=== PATIENT | female | born 1970 | race Two or more races ===

== ENCOUNTER 2020-07-04 09:08 | Outpatient (REF) | payer OTHER, SELFPAY ==
[2020-07-04 10:43] LABS: Alanine Aminotransferase 23 U/L (0-31); Albumin Level 3.8 g/dL (3.5-5.0); Alkaline Phosphatase 119 U/L (39-117); Anion Gap 12 (12-20); Aspartate Amino Transferase 17 U/L (5-31); Bilirubin Total 0.3 mg/dL (0.0-1.0); Blood Urea Nitrogen 11 mg/dL (9-16); Calcium 8.2 mg/dL (8.4-10.2); Carbon Dioxide 28 mmol/L (22-29); Chloride 104 mmol/L (96-108); Cholesterol 217 mg/dL; Estimated Glomerular Filt Rate > 60; Glucose Fasting 98 mg/dL (60-99); HDL Cholesterol 41 mg/dL; LDL Cholesterol Calculated 155 mg/dl; Potassium 4.7 mmol/l (3.3-5.1); Sodium 139 mmol/L (135-145); Total Protein 6.6 g/dL (6.5-8.0); Triglycerides 108 mg/dL
== END 2020-07-04 09:09 | disposition home or self-care (01) ==
LOC: HO.LAB 09:08
PROVIDERS: PCP Internal Medicine; Visit Provider Internal Medicine
DX: E78.00 Pure hypercholesterolemia, unspecified (principal)
CPT/HCPCS: 80053; 80061

== ENCOUNTER 2020-07-21 08:33 | Outpatient (REF) | payer OTHER, SELFPAY ==
--- NOTE | 2020-07-21 08:38 | MM_ITS ---
EXAMINATION: MM SCREENING DIGITAL BREAST TOMOSYNTHESIS, BILATERAL CLINICAL INFORMATION: Screening. Asymptomatic. The lifetime risk of breast cancer based on the Tyrer-Cuzick Model is 6%. COMPARISON: Mammography: 04/08/2019, 03/30/2018 TECHNIQUE: Digital breast tomosynthesis is performed in both the craniocaudal and mediolateral oblique views along with computer-aided detection (CAD). Synthesized 2D images are generated from the tomosynthesis. Additional left MLO view is provided. FINDINGS: The breasts are almost entirely fatty (ACR BI-RADS breast composition Category a). There are no significant masses, abnormal calcifications, or other abnormalities. Background stromal and fibroglandular densities are stable. No significant changes. MM/MM tomosynthesis screening BI IMPRESSION: No mammographic evidence of malignancy. ASSESSMENT: BI-RADS 1: Negative RECOMMENDATION: Routine annual mammography screening. This patient's information was entered into a reminder system with a target due date for their next mammogram.
== END 2020-07-21 08:34 | disposition home or self-care (01) ==
LOC: HO.MAMMO 08:33
PROVIDERS: PCP Internal Medicine; Visit Provider Internal Medicine
DX: Z12.31 Encounter for screening mammogram for malignant neoplasm of breast (principal)
CPT/HCPCS: 77063; 77067

== ENCOUNTER 2021-02-22 15:13 | Outpatient (REF) | payer OTHER, SELFPAY ==
--- NOTE | ~2021-02-22 | XR_ITS ---
EXAMINATION: XR KNEE, RIGHT CLINICAL INFORMATION: Pain right knee COMPARISON: Radiographs right knee 04/13/2019 TECHNIQUE: Four views of the right knee. FINDINGS: There is no fracture, dislocation, destructive process, or definite suprapatellar effusion. There are again degenerative changes right patellofemoral joint with corticated ossicle adjacent to posterior superior aspect patella. There is spurring from the femoral condyles and tibial plateau. No erosive change or definite chondrocalcinosis. No significant narrowing medial lateral knee joint compartment. XR/XR knee RT 4V IMPRESSION: 1. Degenerative changes greatest patellofemoral joint but also spurring femoral condyles and tibial plateau. 2. No erosive change or definite chondrocalcinosis. No effusion.
== END 2021-02-22 15:14 | disposition home or self-care (01) ==
LOC: HO.HMGCX 15:13
PROVIDERS: PCP Internal Medicine; Visit Provider Hospitalist
DX: M25.561 Pain in right knee (principal)
CPT/HCPCS: 73564

== ENCOUNTER 2021-02-26 09:15 | Outpatient (REF) | payer OTHER, SELFPAY ==
[2021-02-26 17:31] LABS: CT PCR NOT DETECTED (Not Detect.); NG PCR NOT DETECTED (Not Detect.)
[2021-03-01 01:26] LABS: HPV mRNA E6/E7 rflx Not Detected (Not Detected)
== END 2021-02-26 09:16 | disposition home or self-care (01) ==
LOC: HO.LAB 09:15
PROVIDERS: Visit Provider Advanced Practice Midwife
DX: Z01.419 Encounter for gynecological examination (general) (routine) without abnormal findings (principal); Z11.51 Encounter for screening for human papillomavirus (HPV); Z11.3 Encounter for screening for infections with a predominantly sexual mode of transmission; R32 Unspecified urinary incontinence; Z20.2 Contact with and (suspected) exposure to infections with a predominantly sexual mode of transmission
CPT/HCPCS: 87491; 87591; 87624; 88142

== ENCOUNTER → 2021-04-26 09:32 | Outpatient (REF) | payer OTHER, SELFPAY ==
--- NOTE | 2021-04-26 09:50 | ECG_ITS ---
Test Reason : HYPERKALEMIC Blood Pressure : / mmHG Vent. Rate : 061 BPM Atrial Rate : 061 BPM P-R Int : 128 ms QRS Dur : 070 ms QT Int : 386 ms P-R-T Axes : 054 042 030 degrees QTc Int : 388 ms Normal sinus rhythm with sinus arrhythmia Normal ECG No previous ECGs available Referred By: Radha Poe Electronically Signed By:NIKKI DIAZ
[2021-04-26 11:01] LABS: Alanine Aminotransferase 18 U/L (0-31); Albumin Level 3.7 g/dL (3.5-5.0); Alkaline Phosphatase 104 U/L (39-117); Anion Gap 13 (12-20); Aspartate Amino Transferase 13 U/L (5-31); Bilirubin Total 0.2 mg/dL (0.0-1.0); Blood Urea Nitrogen 20 mg/dL (9-16); Calcium 8.5 mg/dL (8.4-10.2); Carbon Dioxide 26 mmol/L (22-29); Chloride 106 mmol/L (96-108); Estimated Glomerular Filt Rate > 60; Glucose Random 98 mg/dL (60-115); Potassium 4.6 mmol/L (3.3-5.1); Sodium 140 mmol/L (135-145); Total Protein 6.3 g/dL (6.5-8.0)
== END ==
LOC: HO.CARD 09:32
PROVIDERS: PCP Internal Medicine; Visit Provider Internal Medicine
DX: E87.5 Hyperkalemia (principal)
CPT/HCPCS: 36415; 80053; 93005

== ENCOUNTER 2022-03-11 11:41 | Outpatient (REF) | payer OTHER, SELFPAY ==
--- NOTE | ~2022-03-11 | XR_ITS ---
EXAMINATION: XR ABDOMEN KUB CLINICAL INDICATION: N20.0 - Calculus of kidney COMPARISON: Lumbar radiographs 04/13/2019, KUB 03/12/2018, ultrasound renal 03/24/2018 TECHNIQUE: AP x2 views of the abdomen. FINDINGS: There are no visible urinary tract calculi on plain film. Calculus overlying lower pole left renal fossa on lumbar radiograph 2019 is not demonstrated. The lung bases are clear. Bowel gas unremarkable. No acute bony abnormality. XR/XR KUB IMPRESSION: No visible urinary tract calculi on plain film.
[2022-03-11 12:37] LABS: Alanine Aminotransferase 24 U/L (0-31); Albumin Level 3.9 g/dL (3.5-5.0); Alkaline Phosphatase 117 U/L (39-117); Anion Gap 10 (12-20); Aspartate Amino Transferase 17 U/L (5-31); Bilirubin Total 0.4 mg/dL (0.0-1.0); Blood Urea Nitrogen 15 mg/dL (9-16); Calcium 8.7 mg/dL (8.4-10.2); Carbon Dioxide 28 mmol/L (22-29); Chloride 106 mmol/L (96-108); Cholesterol 214 mg/dL; Estimated Glomerular Filt Rate 59; Glucose Fasting 114 mg/dL (60-99); HDL Cholesterol 38 mg/dL; LDL Cholesterol Calculated 151 mg/dl; Potassium 4.9 mmol/L (3.3-5.1); Sodium 139 mmol/L (135-145); Total Protein 6.5 g/dL (6.5-8.0); Triglycerides 129 mg/dL
== END 2022-03-11 11:42 | disposition home or self-care (01) ==
LOC: HO.XRAY 11:41
PROVIDERS: PCP Internal Medicine; Visit Provider Internal Medicine
DX: N20.0 Calculus of kidney (principal); E78.00 Pure hypercholesterolemia, unspecified; E78.5 Hyperlipidemia, unspecified
CPT/HCPCS: 36415; 74018; 80053; 80061

== ENCOUNTER 2022-03-11 12:23 | Outpatient (REF) | payer OTHER, SELFPAY ==
[2022-03-11 12:45] LABS: COVID-19 Test Positive (Negative); IDNOW Serial# 08D9AD1C
== END 2022-03-11 12:24 | disposition home or self-care (01) ==
LOC: HO.LAB 12:23
PROVIDERS: Visit Provider Internal Medicine
DX: Z20.822 Contact with and (suspected) exposure to COVID-19 (principal)
CPT/HCPCS: 87635; C9803

== ENCOUNTER 2022-04-01 17:22 | Outpatient (REF) | payer OTHER, SELFPAY | END 2022-04-01 17:23 | disposition home or self-care (01) | LOC: HO.LNP 17:22 | PROVIDERS: Visit Provider Nurse Practitioner Family | DX: R10.9 Unspecified abdominal pain (principal) | CPT/HCPCS: 87086 ==

== ENCOUNTER 2022-04-07 10:00 | Outpatient (REF) | payer OTHER, SELFPAY ==
--- NOTE | ~2022-04-07 | XR_ITS ---
EXAMINATION: XR KNEE, LEFT CLINICAL INFORMATION: Pain. COMPARISON: Radiographs dated 04/13/2019. TECHNIQUE: AP, lateral, tunnel, and sunrise views of the left knee. FINDINGS: Bony alignment and mineralization are normal. The lateral and medial joint space compartments are well-maintained and show peripheral osteophyte formation. There is moderate narrowing of the patellofemoral compartment, particularly laterally. There is peripheral osteophyte formation of the superior and lateral articular surfaces of the patella. Note is made of a fractured lateral patellar osteophyte, likely on a chronic basis given smooth marginations. No acute fracture, dislocation or left knee joint effusion is seen. There is no foreign body. XR/XR knee LT 3V IMPRESSION: 1. There is tricompartment osteoarthritic change of the left knee, most pronounced of the patellofemoral joint space compartment, where it is moderate. 2. No acute fracture, dislocation or significant left knee joint effusion is seen. 3. There is a chronic-appearing avulsed osteophyte arising from the lateral patellar margin on the axial view. Please correlate with clinical findings.
--- NOTE | ~2022-04-07 | XR_ITS ---
EXAMINATION: XR SHOULDER, RIGHT CLINICAL INFORMATION: Pain. COMPARISON: None TECHNIQUE: AP external rotation, Grashey, scapular Y, and axillary views of the right shoulder. FINDINGS: The bones and soft tissues are normal. No fracture. Glenohumeral and acromioclavicular alignment is anatomic with normal joint space. No abnormal soft tissue calcifications. XR/XR shoulder RT min 2V IMPRESSION: Normal right shoulder.
[2022-04-07 11:26] LABS: Hematocrit 41.6 % (37.0-47.0); Hemoglobin 13.5 g/dl (12.0-16.0); Mean Corpuscular HGB Conc 32.5 g/dl (31.0-35.0); Mean Corpuscular Volume 83.2 fL (80.0-98.0); Mean Platelet Volume 10.1 fL (9.4-12.3); Platelet Count 259 X10*3/uL (160-400); Red Cell Distribution Width 13.2 % (11.0-16.0); White Blood Count 7.6 X10*3/uL (4.8-10.8)
[2022-04-07 12:12] LABS: Vitamin D 25-OH Total 27.2 ng/mL (>30)
[2022-04-07 12:22] LABS: Folate 9.9 ng/mL (> or = 4.0); Vitamin B12 220 pg/mL (200-900)
== END 2022-04-07 10:01 | disposition home or self-care (01) ==
LOC: HO.LAB 10:00
PROVIDERS: PCP Internal Medicine; Visit Provider Nurse Practitioner Family
DX: Z13.29 Encounter for screening for other suspected endocrine disorder (principal); R10.9 Unspecified abdominal pain; M25.511 Pain in right shoulder; M25.562 Pain in left knee
CPT/HCPCS: 36415; 73030; 73562; 82306; 82607; 82746; 84443; 85027

== ENCOUNTER 2022-04-08 12:55 | Outpatient (REF) | payer OTHER, SELFPAY ==
--- NOTE | ~2022-04-08 | XR_ITS ---
EXAMINATION: XR ELBOW, RIGHT CLINICAL INFORMATION: Pain. COMPARISON: None TECHNIQUE: AP, lateral, and oblique views of the right elbow. FINDINGS: There is mild loss of ulnar humeral joint space with periarticular spurring. Mild spurring is also seen along the radial head. No visible acute fracture or dislocation seen. There is a large enthesophyte along the tip of olecranon process. There is no abnormal joint effusion. There are no loose bodies. XR/XR elbow RT 2V IMPRESSION: Osteoarthritic changes right elbow joint without any loose bodies or fracture.
== END 2022-04-08 12:56 | disposition home or self-care (01) ==
LOC: HO.XRAY 12:55
PROVIDERS: PCP Internal Medicine; Visit Provider Internal Medicine
DX: M25.521 Pain in right elbow (principal)
CPT/HCPCS: 73070

== ENCOUNTER 2022-07-14 09:03 | Outpatient (REF) | payer OTHER, SELFPAY ==
--- NOTE | ~2022-07-14 | XR_ITS ---
EXAMINATION: XR ABDOMEN KUB CLINICAL INDICATION: Unspecified abdominal pain COMPARISON: None TECHNIQUE: AP view of the abdomen. FINDINGS: There is scattered stool and gas in colon without distention. No organomegaly. No radiopaque renal calculi. No gross bony abnormality. XR/XR KUB IMPRESSION: Mild constipation.
[2022-07-14 10:36] LABS: Alanine Aminotransferase 20 U/L (0-31); Albumin Level 3.8 g/dL (3.5-5.0); Alkaline Phosphatase 120 U/L (39-117); Anion Gap 15 (12-20); Aspartate Amino Transferase 15 U/L (5-31); Bilirubin Total 0.4 mg/dL (0.0-1.0); Blood Urea Nitrogen 16 mg/dL (9-16); Calcium 8.8 mg/dL (8.4-10.2); Carbon Dioxide 22 mmol/L (22-29); Chloride 107 mmol/L (96-108); Cholesterol 211 mg/dL; Estimated Glomerular Filt Rate > 60; Glucose Fasting 103 mg/dL (60-99); HDL Cholesterol 45 mg/dL; LDL Cholesterol Calculated 143 mg/dl; Potassium 4.4 mmol/L (3.3-5.1); Sodium 140 mmol/L (135-145); Total Protein 6.4 g/dL (6.5-8.0); Triglycerides 119 mg/dL
[2022-07-14 11:00] LABS: Vitamin D 25-OH Total 31.6 ng/mL (>30)
== END 2022-07-14 09:04 | disposition home or self-care (01) ==
LOC: HO.XRAY 09:03
PROVIDERS: Nurse Practitioner Family; PCP Internal Medicine; Visit Provider Internal Medicine
DX: R10.9 Unspecified abdominal pain (principal); E78.5 Hyperlipidemia, unspecified; E87.5 Hyperkalemia; E78.00 Pure hypercholesterolemia, unspecified; R79.89 Other specified abnormal findings of blood chemistry
CPT/HCPCS: 36415; 74018; 80053; 80061; 82306

== ENCOUNTER 2022-07-18 09:56 | Outpatient (REF) | payer OTHER, SELFPAY ==
[2022-07-18 10:37] LABS: Appearance Urine Clear; Color Urine Yellow; Glucose Urine UA Negative (Negative); Leukocyte Esterase Urine Moderate (2+) (Negative); Nitrite Urine Negative (Negative); PH 5.5 (5.0-9.0); UMIC TRIGGER UACC YES; Urine Blood Negative (Negative); Urine Ketones Negative (Negative); Urine Protein Negative (Neg-Trace)
[2022-07-18 10:42] LABS: Bacteria Urine Trace (None Seen); Hyaline Casts Urine 0-2 /LPF (0-2); RBC Urine 0-2 /HPF (0-2); UACC Culture Trigger YES; WBC Urine >50 /HPF (0-5)
[2022-07-18 11:31] LABS: Vitamin D 25-OH Total 34.7 ng/mL (>30)
== END 2022-07-18 09:57 | disposition home or self-care (01) ==
LOC: HO.LAB 09:56
PROVIDERS: PCP Internal Medicine; Visit Provider Internal Medicine
DX: E55.9 Vitamin D deficiency, unspecified (principal); R30.0 Dysuria; B96.20 Unspecified Escherichia coli [E. coli] as the cause of diseases classified elsewhere
CPT/HCPCS: 36415; 81001; 82306; 87086; 87088; 87186

== ENCOUNTER 2022-11-25 12:22 | Outpatient (REF) | payer OTHER, SELFPAY ==
--- NOTE | ~2022-11-25 | MM_ITS ---
EXAMINATION: MM SCREENING DIGITAL BREAST TOMOSYNTHESIS, BILATERAL CLINICAL INFORMATION: Screening. Asymptomatic. The lifetime risk of breast cancer based on the Tyrer-Cuzick Model is 7%. COMPARISON: Mammography: July 21, 2020 and studies dating back to February 18, 2017 TECHNIQUE: Digital breast tomosynthesis is performed in both the craniocaudal and mediolateral oblique views along with computer-aided detection (CAD). Synthesized 2D images are generated from the tomosynthesis. FINDINGS: There are scattered areas of fibroglandular density (ACR BI-RADS breast composition Category b). There are no significant masses, abnormal calcifications, or other abnormalities. MM/MM tomosynthesis screening BI IMPRESSION: No significant changes from prior exam. ASSESSMENT: BI-RADS 1: Negative RECOMMENDATION: Routine annual mammography screening. This patient's information was entered into a reminder system with a target due date for their next mammogram.
[2022-11-25 15:59] LABS: Anion Gap 12 (12-20); Blood Urea Nitrogen 15 mg/dL (9-16); Calcium 9.1 mg/dL (8.4-10.2); Carbon Dioxide 28 mmol/L (22-29); Chloride 107 mmol/L (96-108); Estimated Glomerular Filt Rate 59; Glucose Random 85 mg/dL (60-115); Potassium 4.6 mmol/L (3.3-5.1); Sodium 142 mmol/L (135-145)
== END 2022-11-25 12:23 | disposition home or self-care (01) ==
LOC: HO.MAMMO 12:22
PROVIDERS: Absent Provider Nurse Practitioner Family; PCP Internal Medicine; Visit Provider Internal Medicine
DX: R19.00 Intra-abdominal and pelvic swelling, mass and lump, unspecified site (principal); Z12.31 Encounter for screening mammogram for malignant neoplasm of breast
CPT/HCPCS: 36415; 77063; 77067; 80048

== ENCOUNTER 2022-12-08 10:43 | Outpatient (RCR) | payer OTHER, SELFPAY ==
--- NOTE | 2022-12-08 11:41 | MHC.OT.EP ---
[address] [phone] Occupational Therapy Plan of Care Patient Name: Mary Medina Date of Evaluation: 12/08/22 Diagnosis: Right elbow pain Pain Location: Mid right upper arm radiating down forearm Pain Score: 6 Pain Scale Used: Numeric (0 - 10) Aggravating Factors: Lifting heavy objects/bags Alleviating Factors: Muscle relaxor and pain meds from MD (does not know names specifically), medicated cream Assessment: 52 yo right hand dominant female presents w/ persistent right elbow pain over the past six months. X-ray indicates bone spurring and pt reports hx of arthritis. 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 On assessment, she has limited shoulder and elbow range B/L'ly, extension more limited in right elbow. Her school social worker is very low B/L'ly and non-functional in right hand at this time (right school social worker 8lb and left school social worker 23 lb). She will benefit from cont'd therapy services to progress range, strength and overall participate in functional activities w/ goal of decreasing elbow pain. *Pt will be somewhat limited as she is traveling to [place] in two weeks and will be gone for two months. Frequency and Duration: The patient will be seen 2x/wk for 2 weeks Short Term Goals: Ind w/ HEP Pt to report incorporating light cardiovascular activity (walking) >10 min daily B/L shoulder AROM >120 degrees flex Right gross grasp >20lb Detention Goals: same as above Treatment Plan: Therapeutic Exercise Therapeutic Activity Home Exercise Program Patient Education ADL Training MHP Cold Packs Soft Tissue Mobilization Electronically Signed By: Africa Martines OTR/L CHT Please Sign and return to therapist. Thank you once again for your referral.
--- NOTE | 2022-12-22 13:21 | MHC.OT.DC ---
[address] [phone] F: [phone] Occupational Therapy Discharge Note Patient Name: Mary Medina Provider: MANUEL Lucas Diagnosis: Right elbow pain Date of Evaluation: 12/08/22 Date of Discharge: 12/22/22 Treatments to Date: 1 No Shows to Date: 4 Discharge Status: Visit Non-compliance Discharge Summary: Mary was referred to OT for right elbow pain. She was seen in clinic two weeks ago and was found to have decreased UE range and strength bilaterally and we discussed increased activity and exercise to progress functional movement and strength with ultimate goal of decreasing arm stress and elbow pain. She has missed four appointments and has not followed up since initial assessment. Electronically Signed By: MARISELA Hartmann/Gloria GLASST Reviewed/agree with student documentation: Therapist: Please Sign and return to therapist, thank you for your referral.
== END 2022-12-22 13:21 | disposition home or self-care (01) ==
LOC: HO.OT 10:43
PROVIDERS: Visit Provider Nurse Practitioner Family
DX: M25.521 Pain in right elbow (principal)
CPT/HCPCS: 97110; 97165

== ENCOUNTER 2022-12-10 13:49 | Outpatient (REF) | payer OTHER, SELFPAY ==
--- NOTE | ~2022-12-10 | CT_ITS ---
EXAMINATION: CT ABDOMEN AND PELVIS WITH CONTRAST CLINICAL INFORMATION: Intra-abdominal and pelvic swelling, mass, lump. History of kidney stones. Rule out hernias. COMPARISON: KUB 07/14/2022, renal ultrasound 03/24/2018. TECHNIQUE: Multidetector volumetric images were obtained from the superior aspect of the liver through the pubic symphysis following administration 85 mL of Omnipaque 350 intravenous contrast. Sagittal and coronal reformatted images were obtained on the technologist's workstation. Oral contrast: No This CT examination was performed using dose optimization techniques as appropriate, variously including the following: *Automated exposure control *Adjustment of mA and/or kV according to patient size (this includes techniques or standardized protocols for targeted exams where dose is matched to indication/reason for exam; i.e. extremities or head) *Use of iterative reconstruction technique DLP: 662 mGy-cm FINDINGS: LUNG BASES: No suspicious lung nodules. LIVER, GALLBLADDER, AND BILIARY TREE: The liver is normal in size, shape, and attenuation. No focal hepatic lesion or biliary ductal dilatation is present. The gallbladder is unremarkable with no evidence of radiopaque gallstones, gallbladder wall thickening, or obvious pericholecystic inflammatory changes. PANCREAS: No discrete pancreatic mass. No ductal dilatation or focal parenchymal atrophy. SPLEEN: Spleen appears normal. ADRENAL GLANDS: 1.2 cm 74 HU homogeneous nodule in the right adrenal gland. 5 mm 80 HU homogeneous nodule in the left adrenal gland. KIDNEYS AND URETERS: Symmetric nephrograms. No nephrolithiasis or hydronephrosis. Scarring in the left kidney consistent with prior staghorn calculus disease and/or pyelonephritis. There are small simple cysts bilaterally. No imaging follow-up is recommended. BLADDER: Unremarkable. GASTROINTESTINAL TRACT: The small bowel is normal in caliber. The appendix appears normal. The large bowel is unremarkable. ABDOMINAL WALL: No significant hernia is appreciated. LYMPH NODES: No lymphadenopathy. VASCULAR: No aortic aneurysm. PELVIC VISCERA: The uterus and adnexa are unremarkable. OSSEOUS STRUCTURES: Moderate degenerative disc disease at L5-S1. CT/CT abdomen pelvis w IV con IMPRESSION: No significant hernia demonstrated. No nephrolithiasis or hydronephrosis. Cortical scarring in the left kidney consistent with prior staghorn calculus disease and/or pyelonephritis. 1.2 cm probable adenoma right adrenal gland. Best Practice Recommendation: 1 year follow-up adrenal washout CT. If stable after one year, no further follow-up imaging. Note: This recommendation does not apply to patients younger than 18 years, patients with cancer, and patients with any clinical suspicion of a functioning adrenal lesion. References: JACR 2017 Mar; 14(8):1038-44, JCAT 2016 Oct-Nov; 40(2):194-200. Fleischner guidelines were followed.
[2022-12-10] MEDS: iohexoL 350 MG/ML 100 ML INFUS..BTL IV (17:11)
[2022-12-10] MEDS: Barium Sulfate Oral (Vanilla) 450 ML ORAL.SUSP PO (17:11)
== END 2022-12-10 13:50 | disposition home or self-care (01) ==
LOC: HO.CT 13:49
PROVIDERS: PCP Internal Medicine; Visit Provider Nurse Practitioner Family
DX: R19.00 Intra-abdominal and pelvic swelling, mass and lump, unspecified site (principal)
CPT/HCPCS: 74177; Q9967

== ENCOUNTER 2023-02-11 13:15 | Outpatient (REF) | payer OTHER, SELFPAY ==
[2023-02-11 15:16] LABS: Appearance Urine Clear; Color Urine Yellow; Glucose Urine UA Negative (Negative); Leukocyte Esterase Urine Trace (Negative); Nitrite Urine Negative (Negative); PH 5.5 (5.0-9.0); Specific Gravity - Urine 1.025 (1.005-1.025); UMIC TRIGGER UACC YES; Urine Blood Large (3+) (Negative); Urine Ketones Negative (Negative); Urine Protein Negative (Neg-Trace)
[2023-02-11 15:56] LABS: Bacteria Urine 4+ (None Seen); Hyaline Casts Urine 0-2 /LPF (0-2); WBC Urine 0-5 /HPF (0-5)
== END 2023-02-11 13:16 | disposition home or self-care (01) ==
LOC: HO.LAB 13:15
PROVIDERS: Visit Provider Internal Medicine
DX: R30.0 Dysuria (principal)
CPT/HCPCS: 81001

== ENCOUNTER → 2023-05-19 10:21 | Outpatient (BNVA) | payer OTHER, SELFPAY | PROVIDERS: PCP Internal Medicine; Visit Provider Physician Assistant | DX: Z12.11 Encounter for screening for malignant neoplasm of colon (principal) | CPT/HCPCS: 99202 ==

== ENCOUNTER → 2023-05-19 10:21 | Outpatient (AMB) | payer OTHER, SELFPAY ==
--- NOTE | 2023-05-19 10:20 | MHC.OFFVIS ---
Intake Vital Signs 05/19/23 10:24 Height 4 ft 11 in Weight 190 lb BMI 38.4 BP 123/85 Blood Pressure Location Lt brachial Position Sitting Pulse 85 Intake Visit Reasons: Colonoscopy Screening Intake Note: Patient new consult for 1st pre colonoscopy screening. Patient denies any GI issues. Commercial Pest Control Representative Required: Yes Accompanied by: Self / Same As Patient Allergies atorvastatin Adverse Reaction (Unknown, Verified 05/19/23 10:22) dizziness,blurry vision HPI HPI Comments History of Present Illness Details 52-year-old female referred for screening colonoscopy She has no GI complaints Normal bowel pattern, good appetite No nausea, vomiting, hematemesis, hematochezia fever or chills PFSH Medical History Hyperkalemia History of kidney stones Pap test, as part of routine gynecological examination Kidney stones Lower back pain Pure hypercholesterolemia Surgical History History of bladder repair surgery History of ureterostomy History of extraction of renal calculus History of endometrial ablation History of section History of tubal ligation Family History Father Liver cancer Mother CVD (cardiovascular disease) Hypertension Social History Housing: Apartment Alcohol intake: never Patient Tobacco Use Status: Never used Tobacco e-Cigarette/Vaping Use: Never Used Second Hand Smoke Exposure: No service: No Current occupational status: employed Current occupational exposures/hazards: No Cognitive needs: No Hearing needs: No Vision needs: Yes Review of Systems Const All systems reviewed & are unremarkable except as noted in HPI and below Card Denies chest pain and Denies dyspnea Resp Denies dyspnea GI Denies abdominal pain, Denies heartburn, Denies nausea and Denies vomiting Physical Exam Vital Signs: Last Vital Signs Pulse 85 05/19/23 10:24 BP 123/85 05/19/23 10:24 BMI result Body Mass Index 38.4 Const General: cooperative and no acute distress Nutritional Appearance: overweight Orientation/consciousness: patient oriented x3 Limitations: language barrier Resp Effort & Inspection: normal respiratory effort and able to speak in complete sentences Auscultation: clear to auscultation bilaterally, no rales, no rhonchi and no wheezes Cardio Rate: regular rate Rhythm: regular rhythm Heart sounds: S1 normal heart sound present and S2 normal heart sound present GI Inspection: Yes obesity Palpation (GI): Soft to palpation and nontender Auscultation: normal bowel sounds Skin General skin exam: no rashes or lesions noted Neuro General: patient oriented x3 Psych Appearance: well kempt Mental Status: mental status grossly normal Speech and movement: Normal speech and movement present and Clear speech present Affect: normal affect Attitude: cooperative Thought process: Normal thought process present Thought content: Normal thought content present Results Reviewed Results Reviewed: 11/2022- CT/CT abdomen pelvis w IV con IMPRESSION: No significant hernia demonstrated. No nephrolithiasis or hydronephrosis. Cortical scarring in the left kidney consistent with prior staghorn calculus disease and/or pyelonephritis. 1.2 cm probable adenoma right adrenal gland. Best Practice Recommendation: 1 year follow-up adrenal washout CT. If stable after one year, no further follow-up imaging. Note: This recommendation does not apply to patients younger than 18 years, patients with cancer, and patients with any clinical suspicion of a functioning adrenal lesion. References: JACR 2017 Mar; 14(8):1038-44, JCAT 2016 Oct-Nov; 40(2):194-200. Fleischner guidelines were followed. Assessment & Plan Assessment & Plan (1) Screen for colon cancer: Comment: Index screening colonoscopy Discussed procedure, rare risks, need for escorted due to anesthesia Code(s): Z12.11 - Encounter for screening for malignant neoplasm of colon Plan Screening colonoscopy, MiraLax Gatorade split prep Orders: Orders Colonoscopy - GI Use Only Today Z12.11 - Encounter for screening for malignant neoplasm of colon Medications: New bisacodyl (Dulcolax (bisacodyl)) Take 4 tablets by mouth at 12:00pm the day before your procedure. 20 mg (4 x 5 mg) PO ONCE 1 day 4 tabs 0RF colonoscopy prep Z12.11 - Encounter for screening for malignant neoplasm of colon polyethylene glycol 3350 (Miralax) Take as directed by mouth the day before your procedure. 238 grams PO ONCE 1 day PRN 238 grams 0RF laxative effect Patient Instructions: Very pleasant 52-year-old female referred for index screening colonoscopy. 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
[2023-05-19 10:24] VITALS: BP 123/85; PULSE 85; BMI 38.4
== END ==
PROVIDERS: PCP Internal Medicine; Visit Provider Physician Assistant
DX: Z01.818 Encounter for other preprocedural examination (principal); Z12.11 Encounter for screening for malignant neoplasm of colon
CPT/HCPCS: 99202

== ENCOUNTER 2023-05-27 12:52 | Outpatient (AMB) | payer OTHER, SELFPAY ==
[2023-05-27 12:59] VITALS: BP 118/64; PULSE 85; TEMP 36.3; O2SAT 98; BMI 38.6
--- NOTE | 2023-05-27 12:59 | MHC.OFFVIS ---
Intake Vital Signs 05/27/23 12:59 Height 4 ft 11 in Weight 190 lb 14.725 oz BMI 38.6 BP 118/64 Blood Pressure Location Rt brachial Position Sitting Pulse 85 Pulse Source Pulse Oximeter Temp 97.3 F Temp Source Skin Pulse Oximetry (%) 98 Intake Visit Reasons: Joint Pain Intake Note: New pt presents today for consult. States she has pain in all her bones. Has tried flexeril but doesn't like that it makes her drowsy. Has also tried otc meds but states they do not help her pain at all. Herbicide Service Sales Representative Required: Yes Herbicide Service Sales Representative Name: Valeria [id number] Information Interpreted: clinical only Accompanied by: Self / Same As Patient Allergies atorvastatin Adverse Reaction (Unknown, Verified 05/27/23 13:02) dizziness,blurry vision Medication List - Last Reconciled 05/27/23 by Zurdo Stewart MD bisacodyl (Dulcolax (bisacodyl)) 20 mg (4 x 5 mg) PO ONCE 1 day cyclobenzaprine 10 mg PO BEDTIME meloxicam 15 mg PO DAILY polyethylene glycol 3350 (Miralax) 238 grams PO ONCE PRN 1 day walker As directed [walker with seat and wheels walker with seat and wheels please] HPI HPI Comments History of Present Illness Details This is a 52-year-old female who presents for evaluation of diffuse joint pain. Patient states that she has had pain in her elbows, fingers, thumbs, shoulders, knees for about 2 years. She is unaware of any family history of autoimmune rheumatic disease. 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 She has to carry her about twice a day and does all the grocery shopping and cooking and cleaning. She denies any swollen joints. She denies any history of DVT/PE [facility] Medical History Hyperkalemia History of kidney stones Pap test, as part of routine gynecological examination Kidney stones Lower back pain Pure hypercholesterolemia Surgical History History of bladder repair surgery History of ureterostomy History of extraction of renal calculus History of endometrial ablation History of section History of tubal ligation Family History Father Liver cancer Mother CVD (cardiovascular disease) Hypertension Social History Housing: Apartment Alcohol intake: never Patient Tobacco Use Status: Never used Tobacco e-Cigarette/Vaping Use: Never Used Second Hand Smoke Exposure: No service: No Current occupational status: employed Current occupational exposures/hazards: No Cognitive needs: No Hearing needs: No Vision needs: Yes Female Reproductive History Menstrual Total pregnancies: 4 Ab spontaneous: 2 Review of Systems Const Reports fatigue ENT Reports dizziness Musc Reports arthralgias Neuro Reports dizziness Endo Reports fatigue Physical Exam Vital Signs: Last Vital Signs Temp 97.3 F 05/27/23 12:59 Pulse 85 05/27/23 12:59 BP 118/64 05/27/23 12:59 Pulse Ox 98 05/27/23 12:59 BMI result Body Mass Index 38.6 Const General: cooperative, healthy appearing and comfortable Nutritional Appearance: obese morbidly obese Orientation/consciousness: patient oriented x3 Limitations: no limitations HEENT Head: Yes normocephalic and Yes atraumatic Mouth: moist mucous membranes Resp Effort & Inspection: normal respiratory effort and able to speak in complete sentences Auscultation: clear to auscultation bilaterally Cardio Rate: regular rate Rhythm: regular rhythm Skin General skin exam: no rashes or lesions noted Neuro General: patient oriented x3 Extrem Other: Mild osteoarthritic changes of both hands Left 1st CMC joint tenderness Multiple tender left hand PIPs without swelling Bilateral elbow tenderness at different sites including collection all, lateral epicondyle Negative resisted wrist extension and resisted wrist flexion test bilateral Negative rotator cuff provocative maneuvers bilaterally Normal nailfold capillaroscopy Negative straight leg raise test No knee swelling, warmth or erythema bilaterally Assessment & Plan Assessment & Plan (1) Polyarthralgia: Code(s): M25.50 - Pain in unspecified joint Plan: This is a 52-year-old female was referred for evaluation of diffuse joint pain. Upon my evaluation I do not see any signs of autoimmune rheumatic disease. Symptoms are rather mechanical and degenerative in nature. Follow-up with PCP Plan I spent 30 minutes reviewing patient's chart, evaluating patient, counseling patient and documenting in the chart Coding Level of Care Code New Pt Level 3 (81829) Diagnoses Polyarthralgia M25.50
== END 2023-05-27 13:36 | disposition home or self-care (01) ==
PROVIDERS: PCP Internal Medicine; Visit Provider Student in an Organized Health Care Education/Training Program
DX: M25.50 Pain in unspecified joint (principal)
CPT/HCPCS: 99203

== ENCOUNTER → 2023-05-27 12:52 | Outpatient (BNVA) | payer OTHER, SELFPAY | PROVIDERS: PCP Internal Medicine; Visit Provider Student in an Organized Health Care Education/Training Program ==

== ENCOUNTER → 2023-06-15 12:55 | Outpatient (BNVA) | payer OTHER, SELFPAY | PROVIDERS: PCP Internal Medicine; Visit Provider Physician Assistant Surgical ==

== ENCOUNTER 2023-07-06 11:44 | Emergency (ER) | payer OTHER, SELFPAY ==
[2023-07-06 12:57] VITALS: BP 134/76; PULSE 61; RESP 18; TEMP 37.1; O2SAT 100; BMI 32.3
--- NOTE | 2023-07-06 13:06 | ED.GENADULT ---
HPI - General Adult General Chief complaint: Urogenital-Female Stated complaint: vaginal pain? Time Seen by Provider: 07/06/23 18:13 Related Data Home Medications Medication Instructions Recorded Confirmed cyclobenzaprine 10 mg tablet 10 mg PO BEDTIME 05/27/23 07/07/23 meloxicam 15 mg tablet 15 mg PO DAILY 05/27/23 07/07/23 Previous Rx's Medication Instructions Recorded walker #1 ea 11/21/22 walker with seat and wheels #1 ea 12/02/22 polyethylene glycol 3350 17 238 g PO ONCE PRN laxative effect 05/19/23 gram/dose oral powder (Miralax) 1 day #238 grams nitrofurantoin macrocrystal 100 mg 100 mg PO BID 7 days #14 caps 07/07/23 capsule cefuroxime axetil 250 mg tablet 250 mg PO BID 7 days #14 tabs 07/10/23 Allergies Allergy/AdvReac Type Severity Reaction Status Date / Time atorvastatin AdvReac Unknown dizziness,blurry Verified 07/07/23 14:01 vision PMFSH Past Medical History Medical History Hyperkalemia History of kidney stones Pap test, as part of routine gynecological examination Kidney stones Lower back pain Pure hypercholesterolemia Surgical History History of bladder repair surgery History of ureterostomy History of extraction of renal calculus History of endometrial ablation History of section History of tubal ligation Family History Family History Father Liver cancer Mother CVD (cardiovascular disease) Hypertension Social History Social History Housing: Apartment Alcohol intake: never Patient Tobacco Use Status: Never used Tobacco e-Cigarette/Vaping Use: Never Used Second Hand Smoke Exposure: No service: No Current occupational status: employed Current occupational exposures/hazards: No Cognitive needs: No Hearing needs: No Vision needs: Yes Physical Exam ED Vital Signs: BMI result Body Mass Index 32.3 Course Course Course Narrative: RME- 52 year old female presents for evaluation of pelvic pain and burning with urination. Plan for labs and a UA. She believes she recently passed a kidney stone Reevaluation(s) Reevaluation #1: 07/10/2023 1732: Patient's urine culture grew >100,000 E.Coli. Antibiotics prescribed. Patient contacted and informed. Medical Decision Making Lab Data 07/06/23 13:19 07/06/23 13:19 Labs: Lab Results 07/06/23 Range/Units 13:19 WBC 10.5 (4.8-10.8) X10*3/uL RBC 5.13 (4.20-5.50) X10*6/uL Hgb 13.8 (12.0-16.0) g/dl Hct 42.9 (37.0-47.0) % MCV 83.6 (80.0-98.0) fL MCH 26.9 L (27.0-33.0) pg MCHC 32.2 (31.0-35.0) g/dl RDW 13.1 (11.0-16.0) % Plt Count 279 (160-400) X10*3/uL MPV 9.4 (9.4-12.3) fL Immature Gran % (Auto) 0.3 (0.0-0.4) % Neut % (Auto) 68.0 (45-73) % Lymph % (Auto) 24.4 (20-40) % [place] % (Auto) 5.5 (2-11) % Eos % (Auto) 1.3 (0-4) % Baso % (Auto) 0.5 (0-2) % Lymph # (Auto) 2.6 (1.2-4.9) X10*3/uL [place] # (Auto) 0.6 (0.1-1.2) X10*3/uL Eos # (Auto) 0.1 (0.0-0.4) X10*3/uL Baso # (Auto) 0.1 (0.0-0.2) X10*3/uL Abs Immat Gran (auto) 0.03 (0.00-0.03) X10*3/uL Absolute Neuts (auto) 7.2 (2.0-8.3) x10*3/uL Absolute Nucleated RBC 0.000 (0.0-0.012) X10*3/uL Nucleated RBC % (auto) 0.0 (0.0-0.2) /100WBC Sodium 139 (135-145) mmol/L Potassium 4.0 (3.3-5.1) mmol/L Chloride 104 (96-108) mmol/L Carbon Dioxide 27 (22-29) mmol/L Anion Gap 12 (12-20) BUN 13 (9-16) mg/dL Creatinine 0.91 (0.5-1.4) mg/dL Estim Creat Clear Calc 79.2 Estimated GFR > 60 Random Glucose 89 (60-115) mg/dL Calcium 9.5 (8.4-10.2) mg/dL Urine Color Yellow Urine Appearance Clear Urine pH 5.5 (5.0-9.0) Ur Specific [place] 1.020 (1.005-1.025) Urine Protein Negative (Neg-Trace) mg/dL Urine Glucose (UA) Negative (Negative) mg/dL Urine Ketones Negative (Negative) mg/dL Urine Blood Trace H (Negative) Urine Nitrite Positive H (Negative) Ur Leukocyte Esterase Negative (Negative) Urine RBC 0-2 (0-2) /HPF Urine WBC 0-5 (0-5) /HPF Ur Squamous Epith Cells 0-2 (0-2) /HPF Urine Bacteria 4+ (None Seen) Hyaline Casts 0-2 (0-2) /LPF Discharge Plan Discharge Clinical Impression: Abdominal pain Patient Disposition: Left W/O Completing Treatment Prescriptions: New cefuroxime axetil 250 mg tablet 250 mg PO BID 7 Days Qty: 14 0RF No Action (DME) walker with seat and wheels See Rx Instructions .Route .MEDSUPPLY Qty: 1 0RF Rx Instructions: walker with seat and wheels please nitrofurantoin macrocrystal 100 mg capsule 100 mg PO BID 7 Days Qty: 14 0RF Rx Instructions: must administer with a meal/food (DME) walker Misc See Rx Instructions .Route Qty: 1 0RF Rx Instructions: As directed polyethylene glycol 3350 [Miralax] 17 gram/dose powder 238 g PO ONCE PRN (Reason: laxative effect) 1 Days Qty: 238 0RF Rx Instructions: Take as directed by mouth the day before your procedure. meloxicam 15 mg tablet 15 mg PO DAILY cyclobenzaprine 10 mg tablet 10 mg PO BEDTIME Interventions: ED Discharge Assessment Last Done: 07/06/23 18:13 Discharge Date/Time: 07/06/23 18:14
[2023-07-06 13:23] LABS: MANUAL DIFF FLAG NO
[2023-07-06 13:25] LABS: Basophils Absolute Auto 0.1 X10*3/uL (0.0-0.2); Basophils Percent Auto 0.5 % (0-2); Eosinophils Absolute Auto 0.1 X10*3/uL (0.0-0.4); Eosinophils Percent Auto 1.3 % (0-4); Hematocrit 42.9 % (37.0-47.0); Hemoglobin 13.8 g/dl (12.0-16.0); Imm Gran Abs Auto 0.03 X10*3/uL (0.00-0.03); Imm Gran Pct Auto 0.3 % (0.0-0.4); Lymphocytes Absolute Auto 2.6 X10*3/uL (1.2-4.9); Lymphocytes Percent Auto 24.4 % (20-40); Mean Corpuscular HGB Conc 32.2 g/dl (31.0-35.0); Mean Corpuscular Hemoglobin 26.9 pg (27.0-33.0); Mean Corpuscular Volume 83.6 fL (80.0-98.0); Mean Platelet Volume 9.4 fL (9.4-12.3); Monocytes Absolute Auto 0.6 X10*3/uL (0.1-1.2); Monocytes Percent Auto 5.5 % (2-11); Neutrophils Absolute Auto 7.2 x10*3/uL (2.0-8.3); Platelet Count 279 X10*3/uL (160-400); Red Blood Count 5.13 X10*6/uL (4.20-5.50); Red Cell Distribution Width 13.1 % (11.0-16.0); White Blood Count 10.5 X10*3/uL (4.8-10.8)
[2023-07-06 13:31] LABS: Appearance Urine Clear; Color Urine Yellow; Glucose Urine UA Negative (Negative); Leukocyte Esterase Urine Negative (Negative); Nitrite Urine Positive (Negative); PH 5.5 (5.0-9.0); UMIC TRIGGER UACC YES; Urine Blood Trace (Negative); Urine Ketones Negative (Negative); Urine Protein Negative (Neg-Trace)
[2023-07-06 13:36] LABS: Bacteria Urine 4+ (None Seen); Hyaline Casts Urine 0-2 /LPF (0-2); RBC Urine 0-2 /HPF (0-2); Squamous Epithelial Cell Urine 0-2 /HPF (0-2); UACC Culture Trigger YES; WBC Urine 0-5 /HPF (0-5)
[2023-07-06 13:45] LABS: Anion Gap 12 (12-20); Blood Urea Nitrogen 13 mg/dL (9-16); Calcium 9.5 mg/dL (8.4-10.2); Carbon Dioxide 27 mmol/L (22-29); Chloride 104 mmol/L (96-108); Creatinine Clr Calc Pharmacy 79.2; Estimated Glomerular Filt Rate > 60; Glucose Random 89 mg/dL (60-115); Sodium 139 mmol/L (135-145)
--- NOTE | 2023-07-06 17:45 | PC.NURSE ---
labs and urine obtained during triage. patient reporting that she is hungry at this time. awaiting dispo from provider.
--- NOTE | 2023-07-06 18:13 | PC.NURSE ---
continues to complain of being hungry, refusing to stay.
== END 2023-07-06 18:14 | disposition left against medical advice (07) ==
PROVIDERS: Physician Assistant; Emergency Provider Emergency Medicine; PCP Internal Medicine
DX: R10.2 Pelvic and perineal pain (principal); Z79.899 Other long term (current) drug therapy
CPT/HCPCS: 36415; 80048; 81001; 85025; 87086; 87088; 87186; 99283; 99284

== ENCOUNTER 2023-07-07 13:46 | Outpatient (AMB) | payer OTHER, SELFPAY ==
--- NOTE | 2023-07-07 13:58 | MHC.OFFVISWM ---
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 Accuracy Expert Required: Yes Accuracy Expert Name: office cmi Allergies atorvastatin Adverse Reaction (Unknown, Verified 07/07/23 14:01) dizziness,blurry vision Medication List - Last Reconciled 07/07/23 by DALE Dave cyclobenzaprine 10 mg PO BEDTIME meloxicam 15 mg PO DAILY nitrofurantoin macrocrystal 100 mg PO BID 7 days polyethylene glycol 3350 (Miralax) 238 grams PO ONCE PRN 1 day walker As directed [walker with seat and wheels walker with seat and wheels please] HPI HPI Comments History of Present Illness Details Pt is here to start the [facility] Weight Management surgical weight loss program. She heard about our program from friends. Her goal is to lose weight and achieve a healthy lifestyle as well as to improve, if not resolve, obesity related medical conditions, including RYAN, HLD. She reports first being concerned about her weight 4-5 years ago, highest weight to date was 194. Current weight is 187.6 pounds with a BMI of 48.8. She has tried multiple methods of weight loss including fad diets without permanent results. She lives alone. 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 She wakes at:?7 am, and goes to bed at?11pm. Dinner is at 6pm. Breakfast: skip AM snack: skip Lunch: dumplings, FF fried plantain PM snack: skip Dinner: rice beans pork chops After dinner: soda Other snacks: ice cream, cookies Liquids: 32 oz water, 36 oz coke daily, 8 oz OJ/passion fruit or fruit juice Alcohol/marijuana/tobacco intake: none Exercise: none, no gym membership, no home equipment. GERD score: 11 NAMAN score: 2 ESS score: 14 QOL score: PFSH Medical History Hyperkalemia History of kidney stones Pap test, as part of routine gynecological examination Kidney stones Lower back pain Pure hypercholesterolemia Surgical History History of bladder repair surgery History of ureterostomy History of extraction of renal calculus History of endometrial ablation History of section History of tubal ligation Family History Father Liver cancer Mother CVD (cardiovascular disease) Hypertension Social History Housing: Apartment Alcohol intake: never Patient Tobacco Use Status: Never used Tobacco e-Cigarette/Vaping Use: Never Used Second Hand Smoke Exposure: No service: No Current occupational status: employed Current occupational exposures/hazards: No Cognitive needs: No Hearing needs: No Vision needs: Yes Review of Systems Const All systems reviewed & are unremarkable except as noted in HPI and below Physical Exam Const General: cooperative, healthy appearing and no acute distress Orientation/consciousness: patient oriented x3 HEENT Head: Yes normal to inspection Ears: hearing grossly normal bilaterally General nose exam: Normal external nose present Face and sinus: Yes normal facial exam Eyes General: appearance normal, both eyes and all related structures Resp Effort & Inspection: normal respiratory effort Auscultation: clear to auscultation bilaterally Cardio Rate: regular rate Rhythm: regular rhythm Heart sounds: S1 normal heart sound present and S2 normal heart sound present GI Inspection: Yes normal to inspection, No distended and Yes obesity Palpation (GI): Soft to palpation, nontender and no guarding Auscultation: normal bowel sounds Skin General skin exam: no rashes or lesions noted Neuro General: patient oriented x3 Extrem General: No edema Psych Appearance: grossly normal Mental Status: mental status grossly normal Speech and movement: Normal speech and movement present Affect: normal affect Attitude: cooperative Assessment & Plan Assessment & Plan (1) Morbid obesity: Code(s): E66.01 - Morbid (severe) obesity due to excess calories Plan: This is a?52 yo female who will start our SWL program to prepare for bariatric surgery.? Blood work, h pylori , CXR, ECG, Abd US and UGI have been ordered. She is being scheduled for RD and BH initial consultations. She will start SWL classes and watch the first three videos before her next appointment. ? Adequate sleep of 7-8 hours per night discussed, awakening at 7 am and going to bed at 11 pm ? Purchase body composition analyzer scale (Renmaxo recommended) and check weight weekly. The best time to do this is first thing in the morning after going to the bathroom. 1. Nutritional counseling: Be sure to careful read the number of scoops per shake Start with 1 Celebrate Rebuild shakes ([facility] [employer], [employer], [employer]), (2 scoops in 18 oz unsweetened almond milk) at 8am-10am 2 protein bar ([employer] bars at [facility] [employer], [employer], [employer]) First bar at 11am-1pm, second bar at 3pm-5pm Dinner at 630pm (6 forks of protein and 6 forks of salad/vegetables). Meal to include lean meat (beef, fish, pork, turkey, chicken), cooked vegetables or a salad with olive oil and/or fruits (berries, pears, apples, kiwi). Avoid salt, breads, potatoes, rice, pasta, desserts. Try to drink 64 oz of water daily and avoid soda and juices. ?2. Each shake would be drunk slowly, like coffee in a period of 2 hours. ?3. Cut each bar in 4 pieces and eat each piece in 30 min ?to make each bar last 2 hours. ?4. I emphasized the importance of measuring accurately the food portion and measure it carefully when serving the food on the plate ?5. The meal portions include 6 full-size forks of meat and 6 full-size forks of salad. You always eat the meat portion but you can replace up to half of the forks of salad/vegetables with rice, potatoes or pasta, or a fruit ?if you like. The less you do it the better weight loss will be. ?6. One full-size fork is what can be scooped on the fork without falling aside and not what can be bit with the fork. Use regular forks like those you find in a typical restaurant. ?7.? Please send me weight measurements as soon as possible and then once a week. Always include your diet and exercise plan. Alternatively come weekly at the office for weight checks and send me the measurements. ?8. Exercise counseling: Begin by watching a stretching for beginners video. Start slowly and begin to stretch your muscles. You should do this before and after each exercise session to prevent injury. Please join [facility] gym near your home. Ask the manager system or one of the trainers how to use the machines if you are unfamiliar with them. Start elliptical with a resistance of 2. Increase resistance by 1 every 3 min to your most comfortable resistance with a max resistance of 8. Reduce the resistance by 1 every 3 minutes back down to 2 and repeat cycles for 300 calories. Alternatively, start treadmill with a speed of 3.0 and incline of 0, increasing incline by 1 every 3 minutes to the highest comfortable level (max 6 for now) then decrease in the same fashion. Repeat process to a goal of 300 calories. Goal of 2000 calories burned or more weekly. You may also consider use of the stationary bike. The easiest would be to chose the fat-burn or interval training program on the machine and do this until you reach the 300 calorie goal. Alternatively, you can manually adjust the resistance in a similar fashion as mentioned above, (resistance of 2-8 with a goal speed of 12 mph). Tracking calories is essential. 9. Alternatively start walking outside daily, tracking calories with a goal of 300 calories per day, daily. You can download the [employer]ude [employer] which can track your time, distance and calories while walking outside. You press start in the claude when you start and then stop when you are finished. 10.? It is important to avoid for at least 18 months 11. Please get labs, EKG and chest X-Ray within 1 week. 12. Discussed and answered all questions regarding?obtained consent to participate in the [place] [facility]?Registry. 13. Please follow the diet plan exactly, without any change. If you do not like something about the plan or you feel hungry, you need to communicate with me so I can help you revise the plan. You should not change the plan yourself. Text me at [phone] 14. Goal is to lose at least 12 pounds in the first month 15. Goal is to lose 10% of your weight before surgery, which is about 19 lbs. Ultimate weight goal: 168 lbs before surgery Patient is morbidly obese and is not considered stable at this time.?I spent a total of 70 minutes reviewing/updating records, examining the patient and counseling the patient on weight management as detailed above. Orders: Orders Insulin Today E66.01 - Morbid (severe) obesity due to excess calories Lipid Panel Today E66.01 - Morbid (severe) obesity due to excess calories Complete Blood Count Auto Diff Today E66.01 - Morbid (severe) obesity due to excess calories Vitamin B12 and Folate Today E66.01 - Morbid (severe) obesity due to excess calories Vitamin B1 Today E66.01 - Morbid (severe) obesity due to excess calories C Reactive Protein Today E66.01 - Morbid (severe) obesity due to excess calories H Pylori Breath Test Today E66.01 - Morbid (severe) obesity due to excess calories Hemoglobin A1c Today E66.01 - Morbid (severe) obesity due to excess calories ECG 12 lead EKG Today E66.01 - Morbid (severe) obesity due to excess calories IRON PROFILE Today E66.01 - Morbid (severe) obesity due to excess calories Zinc Today E66.01 - Morbid (severe) obesity due to excess calories Comprehensive Met. Panel Today E66.01 - Morbid (severe) obesity due to excess calories Vitamin A Today E66.01 - Morbid (severe) obesity due to excess calories Ferritin Today E66.01 - Morbid (severe) obesity due to excess calories PTHI Today E66.01 - Morbid (severe) obesity due to excess calories TSH reflex Free T4 Today E66.01 - Morbid (severe) obesity due to excess calories Vitamin D 25-OH Total Today E66.01 - Morbid (severe) obesity due to excess calories US abdomen comp w elastography Today E66.01 - Morbid (severe) obesity due to excess calories XR chest 2V Today E66.01 - Morbid (severe) obesity due to excess calories FL upper GI w air Today E66.01 - Morbid (severe) obesity due to excess calories Referrals Nutrition/Dietitian Referral E66.01 - Morbid (severe) obesity due to excess calories Behavioral Health Referral E66.01 - Morbid (severe) obesity due to excess calories Coding Level of Care Code New Pt Level 5 (39140) Diagnoses Morbid obesity E66.01 Time Spent (min) 70
[2023-07-07 14:05] VITALS: BP 149/74; PULSE 93; TEMP 36.3; O2SAT 97; BMI 48.8
== END 2023-07-07 14:53 | disposition home or self-care (01) ==
PROVIDERS: PCP Internal Medicine; Visit Provider Physician Assistant Surgical
DX: E66.01 Morbid (severe) obesity due to excess calories (principal); Z68.42 Body mass index [BMI] 45.0-49.9, adult
CPT/HCPCS: 99205

== ENCOUNTER → 2023-07-07 13:46 | Outpatient (BNVA) | payer OTHER, SELFPAY | PROVIDERS: PCP Internal Medicine; Visit Provider Physician Assistant Surgical | DX: E66.01 Morbid (severe) obesity due to excess calories (principal); Z68.42 Body mass index [BMI] 45.0-49.9, adult | CPT/HCPCS: 99202 ==

== ENCOUNTER 2023-07-20 10:59 | Outpatient (REF) | payer OTHER, SELFPAY ==
--- NOTE | ~2023-07-20 | XR_ITS ---
EXAMINATION: XR CHEST CLINICAL INFORMATION: Reason for Exam E66.01 - Morbid (severe) obesity due to excess calories COMPARISON: Chest radiograph 04/27/2018 TECHNIQUE: 2 views of the chest FINDINGS: Lines and tubes: None. Clear lungs. No pleural effusion. No pneumothorax. Normal cardiomediastinal silhouette. XR/XR chest 2V IMPRESSION: * Clear lungs.
--- NOTE | 2023-07-20 11:11 | ECG_ITS ---
Test Reason : E66.01 Blood Pressure : / mmHG Vent. Rate : 065 BPM Atrial Rate : 065 BPM P-R Int : 134 ms QRS Dur : 070 ms QT Int : 392 ms P-R-T Axes : 054 030 032 degrees QTc Int : 407 ms Normal sinus rhythm Normal ECG When compared with ECG of 26-APR-2021 09:54, No significant change was found Referred By: Uri Lopez Electronically Signed By:ADRI TORRES MD
[2023-07-20 11:24] LABS: MANUAL DIFF FLAG NO
[2023-07-20 11:52] LABS: Basophils Absolute Auto 0.1 X10*3/uL (0.0-0.2); Basophils Percent Auto 0.7 % (0-2); Eosinophils Absolute Auto 0.2 X10*3/uL (0.0-0.4); Eosinophils Percent Auto 2.2 % (0-4); Hematocrit 43.6 % (37.0-47.0); Hemoglobin 13.7 g/dl (12.0-16.0); Imm Gran Abs Auto 0.05 X10*3/uL (0.00-0.03); Imm Gran Pct Auto 0.6 % (0.0-0.4); Lymphocytes Absolute Auto 2.5 X10*3/uL (1.2-4.9); Mean Corpuscular HGB Conc 31.4 g/dl (31.0-35.0); Mean Corpuscular Hemoglobin 27.1 pg (27.0-33.0); Mean Corpuscular Volume 86.3 fL (80.0-98.0); Mean Platelet Volume 9.9 fL (9.4-12.3); Monocytes Absolute Auto 0.4 X10*3/uL (0.1-1.2); Monocytes Percent Auto 5.2 % (2-11); Neutrophils Absolute Auto 5.1 x10*3/uL (2.0-8.3); Neutrophils Percent Auto 61.3 % (45-73); Platelet Count 258 X10*3/uL (160-400); Red Blood Count 5.05 X10*6/uL (4.20-5.50); Red Cell Distribution Width 13.2 % (11.0-16.0); White Blood Count 8.3 X10*3/uL (4.8-10.8)
[2023-07-20 12:23] LABS: Estimated Average Glucose 120 mg/dL; Hemoglobin A1c % 5.8 % (<6.0)
[2023-07-20 12:55] LABS: Alanine Aminotransferase 22 U/L (0-31); Albumin Level 3.8 g/dL (3.5-5.0); Alkaline Phosphatase 112 U/L (39-117); Anion Gap 10 (12-20); Aspartate Amino Transferase 16 U/L (5-31); Bilirubin Total 0.4 mg/dL (0.0-1.0); Blood Urea Nitrogen 14 mg/dL (9-16); C Reactive Protein 0.41 mg/dL (< or = 0.50); Calcium 8.8 mg/dL (8.4-10.2); Carbon Dioxide 26 mmol/L (22-29); Chloride 106 mmol/L (96-108); Cholesterol 201 mg/dL (<200); Estimated Glomerular Filt Rate > 60; Glucose Random 102 mg/dL (60-115); HDL Cholesterol 42 mg/dL (>40); Iron 73 mcg/dL (30-160); LDL Cholesterol Calculated 128 mg/dL (<100); Percent Iron Saturation 27 % (15-50); Potassium 4.2 mmol/L (3.3-5.1); Sodium 138 mmol/L (135-145); Total Iron Binding Capacity 275 mcg/dL (228-428); Total Protein 6.7 g/dL (6.5-8.0); Triglycerides 159 mg/dL (<150); Unsaturated Iron Binding 202 ug/dL
[2023-07-20 13:18] LABS: TSH reflex Free T4 1.07 uIU/mL (0.32-4.0); Vitamin D 25-OH Total 21.6 ng/mL (>30)
[2023-07-20 13:23] LABS: Folate 9.9 ng/mL (> or = 4.0); Vitamin B12 349 pg/mL (200-900)
[2023-07-20 13:36] LABS: Ferritin 81 ng/mL (10-250)
[2023-07-20 20:07] LABS: Insulin 24 uU/mL (2-29)
[2023-07-22 15:54] LABS: Calcium (PTHI) 8.8 mg/dL (8.6-10.4); PTHI 37 pg/mL (16-77)
[2023-07-22 17:42] LABS: Zinc 75 mcg/dL (60-130)
[2023-07-24 20:19] LABS: Vitamin A 35 mcg/dL (38-98)
[2023-07-25 10:28] LABS: Vitamin B1 14 nmol/L (8-30)
== END 2023-07-20 11:00 | disposition home or self-care (01) ==
LOC: HO.XRAY 10:59
PROVIDERS: PCP Internal Medicine; Visit Provider Physician Assistant Surgical
DX: E66.01 Morbid (severe) obesity due to excess calories (principal)
CPT/HCPCS: 36415; 71046; 80053; 80061; 82306; 82607; 82728; 82746; 83036; 83525; 83540; 83970; 84425; 84443; 84590; 84630; 85025; 86140; 93005

== ENCOUNTER → 2023-07-22 10:18 | Outpatient (BNVA) | payer OTHER, SELFPAY | PROVIDERS: PCP Internal Medicine; Visit Provider Dietitian, Registered | DX: Z71.3 Dietary counseling and surveillance (principal); E66.01 Morbid (severe) obesity due to excess calories; E87.5 Hyperkalemia | CPT/HCPCS: 97802 ==

== ENCOUNTER 2023-08-04 13:24 | Outpatient (AMB) | payer OTHER, SELFPAY ==
--- NOTE | 2023-08-04 13:26 | MHC.OFFVISWM ---
Intake VS Expanded 08/04/23 13:37 BP 124/66 Blood Pressure Location Rt brachial Blood Pressure Position Sitting Pulse 77 Pulse Source Pulse Oximeter Temp 96.8 F Temperature Source Temporal Artery Scan Pulse Oximetry 99 Oxygen Delivery Method Room Air Height 4 ft 4 in Weight 179 lb 3.2 oz BMI 46.6 Body Fat % 48.9 Body Fat Mass 87.6 Fat Free Mass 91.4 Visceral Fat Rating 17.0 Body Water % 36.3 Body Water Mass 65.0 Muscle Mass/Score 86.8 Basal Metabolic Rate/Score 1,321 Intake Visit Reasons: (OV) F/U SWL + H.Pylori Contract Forester Required: Yes Contract Forester Name: [id number] Allergies atorvastatin Adverse Reaction (Unknown, Verified 08/04/23 13:37) dizziness,blurry vision Medication List - Last Reconciled 08/04/23 by DALE Dave cefuroxime axetil 250 mg PO BID 7 days cholecalciferol (vitamin D3) 125 mcg PO DAILY 90 days cyanocobalamin (vitamin B-12) 500 mcg PO DAILY 90 days cyclobenzaprine 10 mg PO BEDTIME meloxicam 15 mg PO DAILY nitrofurantoin macrocrystal 100 mg PO BID 7 days polyethylene glycol 3350 (Miralax) 238 grams PO ONCE PRN 1 day vitamin A palmitate 3,000 mcg PO DAILY 60 days walker As directed [walker with seat and wheels walker with seat and wheels please] HPI HPI Comments History of Present Illness Details The patient is a pleasant 52 year old female who returns to the clinic for pre-operative surgical weight loss management. They were last seen in the office on 07/07/23, recorded weight at that time was 187.6 pounds, with a BMI of 48.8. Today's weight is 179.2 pounds and BMI is 46.6. There has been a weight loss of 8.4 pounds since initiating the surgical weight loss program on 07/07/23 with a total body weight loss of 4.4 %. Pre op work up completed as follows: SWL classes:? []/8 BH appts: 08/06/23 ? ? RD appts: needs f/u Labs: 07/20/23-Low D, A, B12:349 H. pylori: 08/04/23 CXR: 07/20/23-nad EK07/20/23-normal ABD U/S: 09/28/22 UGI: 09/28/22 The patient reports she is doing well. She is following the meal plan but 1 day she eats extra. The patient does have a body composition scale. They also have not been communicating weekly because she was in [place] for two weeks. She states she does not like the almond milk and changed to water. She has also been doing 2 shakes w 2 scoops each in 8 oz water each, and 2 bars. Current meal plan includes: 1 Celebrate Rebuild shakes ([facility] gift shop), (2 scoops in 18 oz unsweetened almond milk) at 8am-10am 2 protein bar ([employer] bars) First bar at 11am-1pm, second bar at 3pm-5pm Dinner at 630pm (6 forks of protein and 6 forks of salad/vegetables). Drinking 96 oz of water Current exercise plan includes: nothing formal as she was in [place]. She plans on edith g to the gym [facility] Medical History Hyperkalemia History of kidney stones Pap test, as part of routine gynecological examination Kidney stones Lower back pain Pure hypercholesterolemia Surgical History History of bladder repair surgery History of ureterostomy History of extraction of renal calculus History of endometrial ablation History of section History of tubal ligation Family History Father Liver cancer Mother CVD (cardiovascular disease) Hypertension Social History Housing: Apartment Alcohol intake: never Patient Tobacco Use Status: Never used Tobacco e-Cigarette/Vaping Use: Never Used Second Hand Smoke Exposure: No service: No Current occupational status: employed Current occupational exposures/hazards: No Cognitive needs: No Hearing needs: No Vision needs: Yes Review of Systems Const All systems reviewed & are unremarkable except as noted in HPI and below Physical Exam Const General: healthy appearing and no acute distress Resp Effort & Inspection: normal respiratory effort Auscultation: clear to auscultation bilaterally Cardio Rate: regular rate Rhythm: regular rhythm GI Auscultation: normal bowel sounds Extrem General: Yes normal to inspection Assessment & Plan Assessment & Plan (1) Morbid obesity: Code(s): E66.01 - Morbid (severe) obesity due to excess calories Plan: Discussed following the plan exactly. She has lost some weight and there for we will have her switch from the almond milk to water as this is her preference. She states that she was doing 2 shakes with 2 scoops and it was clarified that it is 1 shake with 2 scoops. She was encouraged to text me weekly with her weight and if she has any problems with the plans. She states that she is going to join the [employer] gym. Return to clinic 3 weeks. Coding Level of Care Code Est Pt Level 3 (77548) Diagnoses Morbid obesity E66.01
[2023-08-04 13:37] VITALS: BP 124/66; PULSE 77; TEMP 36; O2SAT 99; BMI 46.6
== END 2023-08-04 14:00 | disposition home or self-care (01) ==
PROVIDERS: PCP Internal Medicine; Visit Provider Physician Assistant Surgical
DX: E66.01 Morbid (severe) obesity due to excess calories (principal); Z68.42 Body mass index [BMI] 45.0-49.9, adult
CPT/HCPCS: 99213

== ENCOUNTER → 2023-08-04 13:24 | Outpatient (BNVA) | payer OTHER, SELFPAY | PROVIDERS: PCP Internal Medicine; Visit Provider Physician Assistant Surgical | DX: E66.01 Morbid (severe) obesity due to excess calories (principal); A04.8 Other specified bacterial intestinal infections; E87.5 Hyperkalemia; Z68.42 Body mass index [BMI] 45.0-49.9, adult | CPT/HCPCS: 99212 ==

== ENCOUNTER 2023-08-06 09:00 | Outpatient (AMB) | payer OTHER, SELFPAY ==
--- NOTE | 2023-08-06 09:09 | A.OFFWM_ITS ---
Intake Intake Visit Reasons: (OV) BH Intake Allergies atorvastatin Adverse Reaction (Unknown, Verified 08/04/23 13:37) dizziness,blurry vision PFSH Medical History Hyperkalemia History of kidney stones Pap test, as part of routine gynecological examination Kidney stones Lower back pain Pure hypercholesterolemia Surgical History History of bladder repair surgery History of ureterostomy History of extraction of renal calculus History of endometrial ablation History of section History of tubal ligation Family History Father Liver cancer Mother CVD (cardiovascular disease) Hypertension Social History Housing: Apartment Alcohol intake: never Patient Tobacco Use Status: Never used Tobacco e-Cigarette/Vaping Use: Never Used Second Hand Smoke Exposure: No service: No Current occupational status: employed Current occupational exposures/hazards: No Cognitive needs: No Hearing needs: No Vision needs: Yes Behavioral Health Assessment Weight Management Therapy Therapy Notes Details Pt is a 52 year old female, who presents for initial BH assessment as part of SWL program. Pt is interested in bariatric surgery for her health, she wants to lose weight, to look and feel better, also wants a program that can offer education and guidance to have long-term results. Pt has disclosed some past concerns with snacking when stressed and showed high scores in BES, however it seems like since she has been in the plan and has been eating consistently she is not as hungry later in the day and has not been either snacking or overeating. On the other hand, PT denied any history of mental health treatment and or past hospitalization/crisis for behavioral health. Denies any safety concerns around SI and/or self-other harm, also there is no history of substance use reported. PHQ- scores also showed no active symptoms/concerns with depression. Mental status exam is withing normal limits, suggesting person's functioning is not impaired, thus Pt is cleared. Presenting Concerns Referral Source WMP Provider. Pt sees DALE Jaramillo. Reason for referral Completion of behavioral health assessment as part of process for weight-loss surgery. Precipitating Event Obesity Living Situation Current Living Situation Relative's/Guardian's Samantha (Pt lives with her mother.) At risk of losing current housing? No Satisfied with current living situation? Yes Comments Pt lives with her elder mother. Food/Weight/Diet Expectations of change The initial goal is to lose 10% of her weight before surgery, which is about 19 lbs. Ultimate weight goal: 168 lbs before surgery. History/Relationship with food Pt reports she used to skip meals, specially breakfast and lunch. She was having an afternoon snack around 2pm and then dinner, but was vey hungry and snacking after dinner. dinner had multiple carbs and was typical Ryan-rican style, she was also eating a lot of fried food. At times she notices she tends to snack when stressed, but is not all the time. History/Relationship with weight Her lowest weight was around 129 lbs about 15 years ago, during this time she was very active exercising, and eating healthy. Once she stopped doing this she slowly gained weight. And the highest weight has been around 200 lbs. History/Relationship with dieting Diet w/ exercise. Cutting carbs, shakes. Binge Eating Do you frequently eat large amounts of food in short periods of time, not feeling physically hungry? Yes Do you feel out of control when you eat a large amount of food in a short period of time? No Do you eat large amounts of food rapidly and typically alone? No Night Eating Do you wake up at least once during the night to eat? No If you wake up in the night, do you find that it is necessary to eat something in order to fall back asleep? No Do you have little or no appetite in the morning and feel very hungry in the evening, often overeating between dinner and when you go to bed? Yes Social History Family history and relationship . Has been in a relationship for about 20 years W/ current boyfriend. Has adult children and 2 grandkids. Mother alive, Step-dad rained her since age 1, Bio-dad . 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 Developmental history and status None. Social support Parents, aunts, friends from [facility], boyfriend. Community support PCP. Catholic/Spirituality Sabianist. Cultural/Ethnic information , From [place]. Moved to [place] 7 years ago to take care of her mother. Legal Involvement and History Current or historical involvement with the legal system? None. Education Highest grade completed 14th grade. HS diploma. Preferred learning style Verbal Currently enrolled in educational program? No Interested in further educational program? No Educational Interests/Skills Cooking, cleaning, taking care of people, helping others. 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 No Meaningful activities Traveling, spend time with friends. Financial Situation Describe current financial situation Occasional struggle Financial assistance? None and Food [place] Service Service? No Mental Health and Addiction Treatment Current/Past substance abuse? No Current/Past addictive behavior concerns? No Psychiatric history Never in counseling. Denies any Crisis or inpatient admission, also reported no Hx or concern around SI/Sa, self/other-harm. Medical and Physical Health Summary Additional Medical History not covered in history None Sexual History concerns None Physical exam in the last year? Yes Pain Screening Current pain? Yes Pain in the last few months? Yes Comments Elbows and knee pain due to arthritis. Medications Is the patient compliant with medications? Yes Does the patient have [place] Guardian in place? Not applicable Does the patient use complimentary health approaches? No Trauma/Abuse History History of trauma? No Questionnaires PHQ-9 Over the last 2 weeks, how often have you been bothered by any of the following problems? 1. Little interest or pleasure in doing things: not at all 2. Feeling down, depressed, or hopeless: not at all 3. Trouble falling or staying asleep, or sleeping too much: not at all 4. Feeling tired or having little energy: not at all 5. Poor appetite or overeating: not at all 6. Feeling bad about yourself - or that you are a failure or have let yourself or your family down: not at all 7. Trouble concentrating on things, such as reading the newspaper or watching television: not at all 8. Moving or speaking so slowly that other people could have noticed. Or the opposite - being so fidgety or restless that you have been moving around a lot more than usual: not at all 9. Thoughts that you would be better off or of hurting yourself in some way: not at all Total score: 0 Depression Screening Interpretation: Negative Depression Screening Done: Yes 40800 - PHQ-9 Billing: Yes Source: Developed by Singh Lopezet B.W. Brayden, Farshad Skinner and colleagues, with an educational isma from [employer]. Binge Eating Scale Group 1 A. I don't feel self-conscious about my wt. or body size when I'm with others. B. I feel concerned about how I look to others, but it normally does not make me fell disappointed with myself C. I do get self-conscious about my appearance and wt. which makes me feel disappointed in myself. D. I feel very self-conscious about my wt. and frequently I feel intense shame and disgust for myself. I try to avoid social contacts because of my self- consciousness. Response Group 1: D Group 2 A. I don't have any difficulty eating slowly in the proper manner. B. Although I seem to gobble down foods, I don't end up feeling stuffed because of eating to much. C. At times, I tend to eat quickly and then, I feel uncomfortably full afterwards. D. I have the habit of bolting down my food, without really chewing it. When this happens I usually feel uncomfortably stuffed because I've eaten to much. Response Group 2: D Group 3 A. I feel capable to control my eating urges when I want to. B. I feel like I have failed to control my eating more than the average person. C. I feel utterly helpless when it comes to feeling in control of my eating urges. D. Because I feel so helpless about controlling my eating I have become very desperate about trying to get control. Response Group 3: B Group 4 A. I don't have the habit of eating when I'm bored. B. I sometimes eat when I'm bored, but often I'm able to get busy and get my mind off food. C. I have a regular habit of eating when I'm bored, but occasionally, I can use some other activity to get my mind off eating. D. I have a strong habit of eating when I'm bored. Nothing seems to help me breath the habit. Response Group 4: C Group 5 A. I'm usually physically hungry when I eat something. B. Occasionally, I eat something on impulse even though I really am not hungry. C. I have the regular habit of eating foods, that I might not really enjoy, to satisfy a hungry feeling even though physically, I don't need the food. D. Although I'm not physically hungry, I get a hungry feeling in my mouth that only seems to be satisfied when I eat a food, like sandwich, that fills my mouth. Sometimes, when I eat the food to satisfy my mouth hunger, I then spit the food out so I won't gain weight. Response Group 5: C Group 6 A. I don't feel any guilt or self-hate after I overeat. B. After I overeat, occasionally I feel guilt or self-hate. C. Almost all the time I experience strong guilt or self-hate after I overeat. Response Group 6: B Group 7 A. I don't lose total control of my eating when dieting even after periods when I overeat. B. Sometimes when I eat a forbidden food on a diet, I feel like I blew it and eat even more. C. Frequently, I have the habit of saying to myself, I've blown it now, why not go all the way, when I overeat on a diet. When that happens I eat more. D. I have a regular habit of starting a strict diets for myself but I break the diets by going on an eating binge. My life seems to be either a feast or famine. Response Group 7: B Group 8 A. I rarely eat so much food that I feel uncomfortably stuffed afterwards. B. Usually about once a month, I each such a quantity of food, I end up feeling very stuffed. C. I have regular periods during the month when I eat large amounts of food, either at mealtime or at snacks. D. I eat so much food that I regularly feel quite uncomfortable after eating and sometimes a bit nauseous. Response Group 8: C Group 9 A. My level of calorie intake does not go up very high or go down very low on a regular basis. B. Sometimes after I overeat, I will try to reduce my caloric intake to almost nothing to compensate for the excess calories I've eaten. C. I have a regular habit of overeating during the night. It seems that my routine is not to be hungry in the morning but overeat in the evening. D. In my adult years, I have had week-long periods where I practically starve myself. This follows periods when I overeat. It seems I live a life of either feast or famine. Response Group 9: B Group 10 A. I usually am able to stop eating when I want to. I know when enough is enough. B. Every so often, I experience a compulsion to eat which I can't seem to control. C. Frequently, I experience strong urges to eat which I seem unable to control, but at other times I can control my eating urges. D. I feel incapable of controlling urges to eat. I have a fear of not being able to stop eating voluntarily. Response Group 10: C Group 11 A. I don't have any problem stopping eating when I feel full. B. I usually can stop eating when I feel full but occasionally overeat leaving me feeling uncomfortably stuffed. C. I have a problem stopping eating once I start and usually I feel uncomfortably stuffed after I eat a meal. D. Because I have a problem not being able to stop eating when I want, I sometimes have to induce vomiting to relieve my stuffed feeling. Response Group 11: C Group 12 A. I seem to eat just as much when I'm with others, Family social gatherings as when I'm by myself. B. Sometimes, when I'm with other persons, I don't eat as much as I want to eat because I'm self-conscious about my eating. C. Frequently, I eat only a small amount of food when others are present, because I'm very embarrassed about my eating. D. I feel so ashamed about overeating that I pick times to overeat when I know no one will see me. I feel like a closet eater. Response Group 12: B Group 13 A. I eat three meals a day with only an occasional between meal snack. B. I eat 3 meals a day, but I also normally snack between meals. C. When I am snacking heavily, I get in the habit of skipping regular meals. D. There are regular periods when I seem to be continually eating, with no planned meals. Response Group 13: C Group 14 A. I don't think much about trying to control unwanted eating urges. B. At least some of the time, I feel my thoughts are pre-occupied with trying to control my eating urges. C. I feel that frequently I spend much time thinking about how much I ate or about trying not to eat anymore. D. It seems to me that most of my waking hours are pre-occupied by thoughts about eating or not eating. I feel like I'm constantly struggling not to eat. Response Group 14: C Group 15 A. I don't think about food a great deal. B. I have strong craving for food but they last only for brief periods of time. C. I have days when I can't seem to think about anything else but food. D. Most of my days seem to be pre-occupied with thoughts about food. I feel like I live to eat. Response Group 15: B Group 16 A. I usually know whether or not I'm physically hungry. I take the right portion of food to satisfy me. B. Occasionally, I feel uncertain about knowing whether or not I'm physically hungry. A these times it's hard to know how much food I should take to satisfy me. C. Even though I might know how many calories I should eat, I don't have any idea what is a normal amount of food for me. Response Group 16: B Binge Eating Score: 27 Score less than 17 Minimal Risk Score between 18-26 Moderate Risk Score between 27-46 High Risk Assessment & Plan Assessment & Plan (1) Eating disorder: Code(s): F50.9 - Eating disorder, unspecified Qualifiers: Eating disorder type: unspecified eating disorder Qualified Code(s): F50.9 - Eating disorder, unspecified Plan: Pt cleared from BH standpoint. Advised to follow up with me after surgery for support and prevention of engagement in binge eating behaviors. Coding Level of Care Code New Pt Psy Diag Jorge (69914) Patient Type New Diagnoses Eating disorder, unspecified type F50.9 Eating disorder type: unspecified eating disorder Time Spent (min) 60
== END 2023-08-06 10:00 | disposition home or self-care (01) ==
PROVIDERS: PCP Internal Medicine; Visit Provider Counselor Mental Health
DX: F50.9 Eating disorder, unspecified (principal)
CPT/HCPCS: 90791

== ENCOUNTER → 2023-08-06 09:00 | Outpatient (BNVA) | payer OTHER, SELFPAY | PROVIDERS: PCP Internal Medicine; Visit Provider Counselor Mental Health ==

== ENCOUNTER 2023-09-01 14:40 | Outpatient (AMB) | payer OTHER, SELFPAY ==
--- NOTE | 2023-09-01 14:06 | MHC.OFFVISWM ---
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 [employer] Name: office cmi Allergies atorvastatin Adverse Reaction (Unknown, Verified 08/04/23 13:37) dizziness,blurry vision Medication List - Last Reconciled 09/01/23 by DALE Dave cholecalciferol (vitamin D3) 125 mcg PO DAILY 90 days cyanocobalamin (vitamin B-12) 500 mcg PO DAILY 90 days cyclobenzaprine 10 mg PO BEDTIME meloxicam 15 mg PO DAILY vitamin A palmitate 3,000 mcg PO DAILY 60 days walker As directed [walker with seat and wheels walker with seat and wheels please] HPI HPI Comments History of Present Illness Details The patient is a pleasant 52 year old female who returns to the clinic for pre-operative surgical weight loss management. They were last seen in the office on 08/04/2023, recorded weight at that time was 179.2 pounds, with a BMI of 46.6. Today's weight is 177.2 pounds and BMI is 46.1. There has been a weight loss of 10.4 pounds since initiating the surgical weight loss program on 07/07/23 with a total body weight loss of 5.5 %. Pre op work up completed as follows: SWL classes:? 10/08 BH appts: cleared-08/06/23 ? ? RD appts: needs f/u Labs: 07/20/23-Low D, A, B12:349 H. pylori: 08/04/23 CXR: 07/20/23-nad EK07/20/23-normal ABD U/S: 09/28/22 UGI: 09/28/22 The patient reports she is doing well but does not like the celebrate bars. Current meal plan includes: 1 Celebrate Rebuild marshalke ([facility] gift shop), (2 scoops in 18 oz water) at 8am-10am 2 protein bar (Celebrate bars) First bar at 11am-1pm, Second bar at 3pm-5pm Dinner at 630pm (6 forks of protein and 6 forks of salad/vegetables). Drinking 96 oz of water Current exercise plan includes: treadmill 200-230 calories daily for the last 2 weeks [facility] Medical History Hyperkalemia History of kidney stones Pap test, as part of routine gynecological examination Kidney stones Lower back pain Pure hypercholesterolemia Surgical History History of bladder repair surgery History of ureterostomy History of extraction of renal calculus History of endometrial ablation History of section History of tubal ligation Family History Father Liver cancer Mother CVD (cardiovascular disease) Hypertension Social History Housing: Apartment Alcohol intake: never Patient Tobacco Use Status: Never used Tobacco e-Cigarette/Vaping Use: Never Used Second Hand Smoke Exposure: No service: No Current occupational status: employed Current occupational exposures/hazards: No Cognitive needs: No Hearing needs: No Vision needs: Yes Assessment & Plan Assessment & Plan (1) Morbid obesity: Code(s): E66.01 - Morbid (severe) obesity due to excess calories Plan: Change meal plan: Celebrate rebuild half scoop in 8 oz of almond milk at 8-10 am 1 scoop in 10 oz of almond milk at 11-1 pm Zone perfect bar at 2-4 pm Dinner at 5 with 6 forks of protein and 6 of salad or vegetables Another bar at 8-10 pm Increase exercise to a goal of 300 calories per day. Return to clinic 3 weeks. Telehealth Telehealth Location of provider rendering services: practice address Location of patient: other Patient Identification confirmed using: Name, : Yes Telehealth method: voice only Patient verbally consented to treatment: Yes Patient verbally consented to billing insurance company: Yes Patient informed of any privacy concerns related to visit: Yes Minutes spent on Phone/Video with Pt.: 15 Coding Level of Care Code Tele Est Pt Level 3 (69416) Diagnoses Morbid obesity E66.01 Time Spent (min) 20
[2023-09-01 14:26] VITALS: BMI 46.1
== END 2023-09-01 14:41 | disposition home or self-care (01) ==
LOC: HO.HBS 14:40
PROVIDERS: PCP Internal Medicine; Visit Provider Physician Assistant Surgical
DX: E66.01 Morbid (severe) obesity due to excess calories (principal)
CPT/HCPCS: 99213

== ENCOUNTER → 2023-09-01 14:40 | Outpatient (BNVA) | payer OTHER, SELFPAY | PROVIDERS: PCP Internal Medicine; Visit Provider Physician Assistant Surgical ==

== ENCOUNTER 2023-10-21 11:00 | Outpatient (REF) | payer OTHER, SELFPAY ==
[2023-10-22 11:37] LABS: H Pylori Breath Test Positive (Negative)
== END 2023-10-21 11:01 | disposition home or self-care (01) ==
LOC: HO.LNP 11:00
PROVIDERS: PCP Internal Medicine; Visit Provider Physician Assistant Surgical
DX: Z11.2 Encounter for screening for other bacterial diseases (principal); E66.01 Morbid (severe) obesity due to excess calories
CPT/HCPCS: 83013; 99211

== ENCOUNTER 2023-10-23 12:54 | Outpatient (AMB) | payer OTHER, SELFPAY ==
--- NOTE | 2023-10-23 12:56 | A.OFFVIS_ITS ---
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 Name: office cmi Allergies atorvastatin Adverse Reaction (Unknown, Verified 10/23/23 13:08) dizziness,blurry vision Medication List - Last Reconciled 10/23/23 by DALE Dave amoxicillin 1,000 mg (2 x 500 mg) PO Q12H 14 days cholecalciferol (vitamin D3) 125 mcg PO DAILY 90 days clarithromycin 500 mg PO Q12H 14 days cyanocobalamin (vitamin B-12) 500 mcg PO DAILY 90 days omeprazole 20 mg PO BID 14 days vitamin A palmitate 3,000 mcg PO DAILY 60 days [walker with seat and wheels walker with seat and wheels please] HPI HPI Comments History of Present Illness Details The patient is a pleasant 52 year old female who returns to the clinic for pre-operative surgical weight loss management. They were last seen in the office on 09/01/23, recorded weight at that time was 177.2 pounds, with a BMI of 46.1. Today's weight is 166.6 pounds and BMI is 43.3. There has been a weight loss of 21 pounds since initiating the surgical weight loss program on 07/07/23 with a total body weight loss of 11.1 %. Pre op work up completed as follows: SWL classes:? 10/08 BH appts: cleared-08/06/23 ? ? RD appts: needs f/u Labs: 07/20/23-Low D, A, B12:349 H. pylori: 10/21/23-pos CXR: 07/20/23-nad EK07/20/23-normal ABD U/S: 11/06/23 UGI: 11/09/23 The patient reports she is doing extremely well. She has been exercising diligently. She has been following the meal plan exactly. She states she does not need the 2 bars. Current meal plan includes: Celebrate rebuild half scoop in 8 oz of almond milk at 8-10 am 1 scoop in 10 oz of almond milk at 11-1 pm Zone perfect bar at 2-4 pm Dinner at 5 with 6 forks of protein and 6 of salad or vegetables Another bar at 8-10 pm Drinking 80-96 oz of water Current exercise plan includes: treadmill 300-350 calories daily PFSH Medical History Hyperkalemia History of kidney stones Pap test, as part of routine gynecological examination Kidney stones Lower back pain Pure hypercholesterolemia Surgical History History of bladder repair surgery History of ureterostomy History of extraction of renal calculus History of endometrial ablation History of section History of tubal ligation Family History Father Liver cancer Mother CVD (cardiovascular disease) Hypertension Social History Housing: Apartment Alcohol intake: never Patient Tobacco Use Status: Never used Tobacco e-Cigarette/Vaping Use: Never Used Second Hand Smoke Exposure: No service: No Current occupational status: employed Current occupational exposures/hazards: No Cognitive needs: No Hearing needs: No Vision needs: Yes Physical Exam Const General: healthy appearing and no acute distress Resp Effort & Inspection: normal respiratory effort Auscultation: clear to auscultation bilaterally Cardio Rate: regular rate Rhythm: regular rhythm GI Auscultation: normal bowel sounds Extrem General: Yes normal to inspection Assessment & Plan Assessment & Plan (1) Morbid obesity: Code(s): E66.01 - Morbid (severe) obesity due to excess calories Plan: Patient has made excellent progress. She was reminded of her upcoming diagnostic imaging studies. We will additionally have her scheduled for an appointment with Ana Paula. We will refer her to Dr. Renner for continued preoperative care. Change meal plan slightly: As she does not feel as though the mid afternoon protein bar as needed, Celebrate rebuild half scoop in 8 oz of almond milk at 8-10 am 1 scoop in 10 oz of almond milk at 11-1 pm Dinner at 5 with 6 forks of protein and 6 of salad or vegetables Another bar at 8-10 pm Coding Level of Care Code Est Pt Level 3 (37647) Diagnoses Morbid obesity E66.01
[2023-10-23 13:03] VITALS: BP 142/80; PULSE 92; TEMP 36.6; O2SAT 98; BMI 43.3
== END 2023-10-23 13:32 | disposition home or self-care (01) ==
PROVIDERS: PCP Internal Medicine; Visit Provider Physician Assistant Surgical
DX: E66.01 Morbid (severe) obesity due to excess calories (principal); Z68.41 Body mass index [BMI] 40.0-44.9, adult
CPT/HCPCS: 99213

== ENCOUNTER → 2023-10-23 12:54 | Outpatient (BNVA) | payer OTHER, SELFPAY | PROVIDERS: PCP Internal Medicine; Visit Provider Physician Assistant Surgical | DX: E66.01 Morbid (severe) obesity due to excess calories (principal); Z68.41 Body mass index [BMI] 40.0-44.9, adult | CPT/HCPCS: 99212 ==

== ENCOUNTER 2023-11-06 09:59 | Outpatient (REF) | payer OTHER, SELFPAY ==
--- NOTE | ~2023-11-06 | US_ITS ---
EXAMINATION: US COMPLETE ABDOMEN WITH LIVER ELASTOGRAPHY CLINICAL INFORMATION: Morbid (severe) obesity due to excess calories. COMPARISON: None available. TECHNIQUE: Real-time imaging of the abdominal viscera. Noninvasive ultrasound liver fibrosis assessment is performed using Tina ElastPQ point quantification shear wave elastography (2D-SWE) with a C5-2 MHz transducer. Multiple elastography samples are obtained. FINDINGS: PANCREAS: Normal. The visualized pancreatic head and body are normal in appearance. The remainder of the pancreas is obscured from visualization by the overlying bowel gas. ABDOMINAL AORTA: The proximal, middle, and distal aortic segments are normal in caliber. INFERIOR VENA CAVA: Visualized portions are normal. LIVER: The liver demonstrates normal size, contour and increased echogenicity. No focal lesion or intrahepatic biliary duct dilatation. The right lobe measures 12.2 cm in length. The left lobe measures 10.5 cm in length. Portal flow is hepatopedal. Shear wave liver elastography median stiffness is 1.78 m/s (reference: normal median stiffness is 1.3 m/s or less). IQR/median stiffness to assess sampling precision is 0.1 (reference: good quality data set is IQR/median stiffness of 0.15 or less). GALLBLADDER: The gallbladder is physiologically distended without evidence of stones, sludge wall thickening or pericholecystic fluid. There is a small anechoic polyp measuring 0.3 x 0.3 x 0.2 cm. The gallbladder wall thickness is 0.2 cm. COMMON BILE DUCT: Normal in caliber measuring 0.3 cm in diameter. RIGHT KIDNEY: There is a nonobstructive echogenic stone midpole/lower pole measuring 0.4 x 0.3 x 0.3 and midpole echogenic stone laterally measuring 1.7 x 1.3 x 1.4 cm. There is no caliectasis or hydronephrosis. The kidney measures 10.3 cm in maximum dimension. LEFT KIDNEY: Normal. No hydronephrosis. No renal calculi or focal parenchymal lesions. The kidney measures 8.7 cm in maximum dimension. SPLEEN: Normal. The spleen measures 11.2 cm in maximum dimension. FREE FLUID: None. US/US abdomen comp w elastography IMPRESSION: 1. Nonobstructive 2 echogenic right renal calculi. 2. Small gallbladder polyp. No echogenic stones. 3. Mild hepatic increased echogenicity. 4. LIVER ELASTOGRAPHY: Median liver stiffness measures 1.78 m/s correlates with cACLD (suggestive). REFERENCE: Society of Radiologists in Ultrasound Liver Stiffness Thresholds (2020): LIVER STIFFNESS THRESHOLDS: *Liver Stiffness equal or less than 1.3 m/s: High probability of being normal. *Liver Stiffness less than 1.7 m/s: In the absence of other known clinical signs, rules out compensated advanced chronic liver disease. *Liver Stiffness 1.7-2.1 m/s: Suggestive of compensated advanced chronic liver disease but need further test for confirmation. *Liver Stiffness over 2.1 m/s: Rules in compensated advanced chronic liver disease. *Liver Stiffness over 2.4 m/s: Suggestive of clinically significant portal hypertension. QUALITY OF DATA SET: *IQR/Median value equal or less than 0.15 implies a quality data set. *IQR/Median value over 0.15 implies a poor quality data set. SIGNIFICANT CHANGE FROM PRIOR EXAM: Significant change if liver stiffness measurement is 10% or greater from prior exam. OTHER CONSIDERATIONS: The stage of liver fibrosis may be overestimated in the setting of acute hepatitis, liver inflammation, elevated liver function tests, hepatic vascular congestion, obstructive cholestasis, non-fasting state, and infiltrative diseases such as amyloidosis and lymphoma. In some patients with NAFLD, the liver stiffness thresholds for compensated advanced chronic liver disease may be lower. In causes other than viral hepatitis and NAFLD, liver stiffness thresholds are not well established.
== END 2023-11-06 10:00 | disposition home or self-care (01) ==
LOC: HO.US 09:59
PROVIDERS: PCP Internal Medicine; Visit Provider Physician Assistant Surgical
DX: E66.01 Morbid (severe) obesity due to excess calories (principal)
CPT/HCPCS: 76700; 76981

== ENCOUNTER 2023-11-09 09:58 | Outpatient (REF) | payer OTHER, SELFPAY ==
--- NOTE | ~2023-11-09 | FL_ITS ---
EXAMINATION: XR FLUOROSCOPY UPPER GI WITH AIR CLINICAL INFORMATION: Preop evaluation prior to bariatric surgery COMPARISON: None TECHNIQUE: Fluoroscopic air contrast upper GI examination was performed utilizing standard techniques with thin and thick barium and effervescent granules. Numerous spot images were obtained. FINDINGS: Images of the oropharynx and hypopharynx demonstrate normal swallow mechanism with normal epiglottic inversion and soft palate elevation. No tracheal penetration, glottic or subglottic aspiration identified. No nasopharyngeal reflux present. Hypopharyngeal structures appear normal without evidence of mass or diverticulum. There is moderate episodic cricopharyngeal achalasia present (RF # 1-2, image 20). Dual and single contrast images of the esophagus demonstrate normal caliber, contour, and mucosal pattern. No evidence of stricture, mass, or ulcerations identified. Esophageal peristalsis was normal. No definite evidence of hiatus hernia identified. Mild gastroesophageal reflux is seen in the distal esophagus. Dual contrast and single contrast images of the stomach demonstrated a normal contour. The gastric mucosal folds appear thickened. There is prominence of the gastric areae gastricae. There are multiple tiny areas of contrast pooling in the body the stomach that may represent small superficial mucosal apthous ulcers. No evidence of mass or other abnormalities. Contrast freely passed into the gastric antrum and duodenal bulb without delay. Single and air-contrast images of the duodenal bulb demonstrate no abnormality. The duodenal sweep has a normal appearance, course, and mucosal fold appearance. No malrotation. The imaged proximal jejunum has a normal fold pattern and caliber. FLUOROSCOPY TIME: 3 minutes 9 seconds Number of Spot Images: 11 Number of Cine: 9 DOSE AREA PRODUCT: 2553 uGy-m2 (microgray-meter squared) FL/FL upper GI w air IMPRESSION: 1. Moderate cricopharyngeal pharyngeal achalasia. 2. Mild gastroesophageal reflux. 3. Thickened gastric mucosal folds, in addition to multiple tiny areas of contrast pooling in the body of stomach. These findings may suggest erosive gastritis. Recommend correlation with EGD. This procedure was performed by Leonides Saeed PA-C, and supervised by Dr. Post
== END 2023-11-09 09:59 | disposition home or self-care (01) ==
LOC: HO.XRAY 09:58
PROVIDERS: PCP Internal Medicine; Visit Provider Physician Assistant Surgical
DX: E66.01 Morbid (severe) obesity due to excess calories (principal)
CPT/HCPCS: 74246

== ENCOUNTER → 2023-11-09 09:59 | Outpatient (BNV) | payer OTHER, SELFPAY | PROVIDERS: PCP Internal Medicine; Visit Provider Physician Assistant Surgical | DX: E66.01 Morbid (severe) obesity due to excess calories (principal); Z01.818 Encounter for other preprocedural examination | CPT/HCPCS: 74246 ==

== ENCOUNTER 2023-11-30 08:00 | Outpatient (AMB) | payer OTHER, SELFPAY ==
--- NOTE | 2023-11-30 10:13 | MHC.OFFVISWM ---
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* HPI Details Start time: 9.44am, End time: 10.34am ?I spent 40 minutes speaking with the patient on the phone plus an additional 10 minutes reviewing and updating records for a total of 50 minutes HPI Comments History of Present Illness Details Overall weight loss: 27.2lbs, or 14.5% TBWL Current meal plan includes: Celebrate rebuild half scoop in 8 oz of almond milk at 8-10 am 1 scoop in 10 oz of almond milk at 11-1 pm Zone perfect bar at 2-4 pm Dinner at 5 with 6 forks of protein and 6 of salad or vegetables Another Zone Perfect protein bar at 8-10 pm Current exercise plan includes: treadmill 300-350 calories daily PFSH Medical History Hyperkalemia History of kidney stones Pap test, as part of routine gynecological examination Kidney stones Lower back pain Pure hypercholesterolemia Surgical History History of bladder repair surgery History of ureterostomy History of extraction of renal calculus History of endometrial ablation History of section History of tubal ligation Family History Father Liver cancer Mother CVD (cardiovascular disease) Hypertension Social History Housing: Apartment Alcohol intake: never Patient Tobacco Use Status: Never used Tobacco e-Cigarette/Vaping Use: Never Used Second Hand Smoke Exposure: No service: No Current occupational status: employed Current occupational exposures/hazards: No Cognitive needs: No Hearing needs: No Vision needs: Yes Assessment & Plan Assessment & Plan (1) Morbid obesity: Code(s): E66.01 - Morbid (severe) obesity due to excess calories Plan: 1. Plan for lap sleeve gastrectomy including upper GI endoscopy. All tests has been completed and reviewed and the patient is cleared for the surgery. ?If diaphragmatic or ventral hernias are present at time of surgery, these will be repaired laparoscopically as well. 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 I emphasized the importance of close follow-up, adherence to instructions and good communication. So far she has proven to be an excellent communicator and very compliant with all our directions accomplishing a great weight loss. I believe that she is an excellent candidate and she is ready. 2. The patient participated in a structured preoperative lifestyle intervention program supervised by a physician the 4 months preceding the surgical procedure. The lifestyle intervention included a structured nutritional plan with a specific daily protein intake goal, an exercise plan with a 2000 calorie burn weekly goal, weekly behavior modification guidance and completion of eight 1-hour online nutritional classes and passing successfully the corresponding quizzes. Adherence to preoperative care plan was demonstrated by completing an extensive preoperative work-up. Program participation was demonstrated by completing 4 visits with our medical team and by sharing weekly weight measurements weekly for 4 consecutive months. Compliance to the lifestyle intervention was demonstrated by achieving a 27.2lbs weight-loss or 14.5% total body weight loss (TBWL). No medications were used to achieve this weight loss. In our published experience an over 7% preoperative TBWL, achieved by meeting the diet and exercise goals of our program improves surgical outcomes, reduces the potential for surgical complications, and predicts a statistically significant higher weight loss up to 6 years postoperatively. 3. Continue same nutritional plan of one Celebrate Rebuild protein shake (1/2 scoop in almond milk), one Celebrate shake (1 scoop in almond milk), 2 Zone Perfect protein bars and one meal (6 forks of protein and 6 forks of salad or vegetables) 4. Continue the same exercise plan doing stationary bike daily for 300-350 calories per day Telehealth Telehealth Location of provider rendering services: practice address Location of patient: address on file Patient Identification confirmed using: Name, : Yes Telehealth method: voice only Patient verbally consented to treatment: Yes Patient verbally consented to billing insurance company: Yes Patient informed of any privacy concerns related to visit: Yes Minutes spent on Phone/Video with Pt.: 50 Coding Level of Care Code Tele Est Pt Level 5 (12637) Diagnoses Morbid obesity E66.01 Time Spent (min) 50 Comment With a Moroccan speaking foreign exchange services manager
[2023-11-30 10:27] VITALS: BMI 41.7
== END 2023-11-30 10:35 | disposition home or self-care (01) ==
LOC: HO.HBS 08:00
PROVIDERS: PCP Internal Medicine; Visit Provider Surgery
DX: E66.01 Morbid (severe) obesity due to excess calories (principal)
CPT/HCPCS: 99215

== ENCOUNTER → 2023-11-30 08:00 | Outpatient (BNVA) | payer OTHER, SELFPAY | PROVIDERS: PCP Internal Medicine; Visit Provider Surgery ==

== ENCOUNTER → 2023-12-04 07:50 | Outpatient (BNVA) | payer OTHER, SELFPAY | PROVIDERS: PCP Internal Medicine; Visit Provider Physician Assistant Surgical | DX: E66.01 Morbid (severe) obesity due to excess calories (principal); Z68.41 Body mass index [BMI] 40.0-44.9, adult | CPT/HCPCS: 99211 ==

== ENCOUNTER 2023-12-04 14:30 | Outpatient (AMB) | payer OTHER, SELFPAY ==
--- NOTE | 2023-12-04 14:25 | MHC.OFFVISWM ---
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* Allergies atorvastatin Adverse Reaction (Unknown, Verified 12/04/23 14:43) dizziness,blurry vision Medication List - Last Reconciled 12/04/23 by Zaire Renner MD cholecalciferol (vitamin D3) 125 mcg PO DAILY 90 days cyanocobalamin (vitamin B-12) 500 mcg PO DAILY 90 days ondansetron 4 mg PO Q12H pantoprazole 40 mg PO DAILY polyethylene glycol 3350 (Miralax) 17 grams PO DAILY sucralfate 10 mL PO BID vitamin A palmitate 3,000 mcg PO DAILY 60 days [walker with seat and wheels walker with seat and wheels please] HPI TV 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* HPI Details Start time: 2.22pm, End time: 2.52pm ?I spent 25 minutes speaking with the patient on the phone plus an additional 5 minutes reviewing and updating records for a total of 30 minutes HPI Comments History of Present Illness Details Overall weight loss: 27.2lbs, or 14.5% TBWL Current meal plan includes: Celebrate rebuild half scoop in 8 oz of almond milk at 8-10 am 1 scoop in 10 oz of almond milk at 11-1 pm Zone perfect bar at 2-4 pm Dinner at 5 with 6 forks of protein and 6 of salad or vegetables Another Zone Perfect protein bar at 8-10 pm Current exercise plan includes: treadmill 300-350 calories daily PFSH Medical History Hyperkalemia History of kidney stones Pap test, as part of routine gynecological examination Kidney stones Lower back pain Pure hypercholesterolemia Surgical History History of bladder repair surgery History of ureterostomy History of extraction of renal calculus History of endometrial ablation History of section History of tubal ligation Family History Father Liver cancer Mother CVD (cardiovascular disease) Hypertension Social History Housing: Apartment Alcohol intake: never Patient Tobacco Use Status: Never used Tobacco e-Cigarette/Vaping Use: Never Used Second Hand Smoke Exposure: No service: No Current occupational status: employed Current occupational exposures/hazards: No Cognitive needs: No Hearing needs: No Vision needs: Yes Assessment & Plan Assessment & Plan (1) Morbid obesity: Code(s): E66.01 - Morbid (severe) obesity due to excess calories Plan: 1. Plan for lap sleeve gastrectomy including upper GI endoscopy. All tests has been completed and reviewed and the patient is cleared for the surgery. ?If diaphragmatic or ventral hernias are present at time of surgery, these will be repaired laparoscopically as well. Risks and complications were discussed in detail including possible conversion to an open procedure, anastomotic leak, bleeding requiring transfusion, small bowel obstruction, , DVT and pulmonary embolism, cardiac, or pulmonary complications, as terminal make up operator complications such as anastomotic ulcer, insufficient weight loss and vitamin deficiencies. I emphasized the importance of close follow-up, adherence to instructions and good communication. So far she has proven to be an excellent communicator and very compliant with all our directions accomplishing a great weight loss. I believe that she is an excellent candidate and she is ready. 2. Preop prescriptions were provided and explained the purpose of each one. Need to be purchased preop. Start Pantoprazole now as you get it from the pharmacy, 1 pill per day. Sucralfate and Zofran are for after surgery as needed. 3. Bowel prep: please do 7 packets ?of Miralax mixing each one with a an 8oz glass of water, crystal light, gatorade zero, or propel ?on 12/15/23 and the same amount on 12/16/23. The Miralax you begin with one packet at a time in 8oz water or crystal light, gatorade zero, or propel ?as early in the day as you can and you do them back to back until you finish them. Continue the protein shakes during? the bowel prep. 4. Needs to purchase 1oz medicine cups . 5. Needs to purchase Children's liquid Tylenol for postop pain control. 6. Avoid aspirin, motrin, Advil, Aleve, Ibuprofen, Naproxyn. Tylenol is OK. 7. She needs to purchase the Celebrate 4:1 protein shakes from the hospital's gift shop. 8. Will do basic preop blood work-up any day between Thursday08/04/22 and Thursday08/08/22 fasting for 12 hours and is scheduled to see the Anesthesiologist prior to the day of surgery. 9. Importance of adherence to postop folllow-up and recommendations was underscored and she understands that. 10. Stop food and bars as of Thursday12/06/23 and continue with 5 Celebrate Rebuild protein shakes (ONE scoop EACH in 8oz almond milk) at 8am-10am, 11am-1pm, 2pm-4pm, 5pm-7pm and at 8pm-10pm 11. No soups, broths or V8 12. The patient's?medical?history has been reviewed and they are considered low risk for post op DVT and therefore DVT prophylaxis is not considered necessary. Travel after surgery was reviewed. The patient has not disclosed any travel plans during the first 30 days after surgery and they have been advised that within the first 30 days after surgery any bus, plane, train or car travel over 2 hours in duration is contraindicated due to the possibility of developing blood clots from immobility. Any travel, needs to include periods of ambulation of 10 minutes in duration every 2 hours.? Patient was instructed to discuss any plans for travel during this period with their bariatric surgeon.? 13. Use your CPAP daily and bring it to the hospital with your mask 14. Please take at the day of surgery the following medications: NONE 15. Stop any control pills and don't use them for one month after surgery 16. Absolutely no smoking or vaping, or marijuana until the surgery and for at least the first 4 weeks. Only nicotine patches are allowed. 17. Send me weight measurements on Thursday12/09/23 and then on 12/17/23, the day of surgery before you go to the hospital. 18. Avoid any steroids by mouth for any reason. Let me know if someone prescribes them to you 19. These instructions supersede anything else you read in the handbook, anything you watched in videos or classes or you were told by any other provider. If there is any conflict, you follow the above instructions and nothing else. Orders: Orders Comprehensive Met. Panel Today E66.01 - Morbid (severe) obesity due to excess calories TSH reflex Free T4 Today E66.01 - Morbid (severe) obesity due to excess calories Prothrombin Time INR Today E66.01 - Morbid (severe) obesity due to excess calories Partial Thromboplastin Time Today E66.01 - Morbid (severe) obesity due to excess calories Hemoglobin A1c Today E66.01 - Morbid (severe) obesity due to excess calories Complete Blood Count Auto Diff Today E66.01 - Morbid (severe) obesity due to excess calories Insulin Today E66.01 - Morbid (severe) obesity due to excess calories Type and Screen Today E66.01 - Morbid (severe) obesity due to excess calories C Reactive Protein Today E66.01 - Morbid (severe) obesity due to excess calories Lipid Panel Today E66.01 - Morbid (severe) obesity due to excess calories Medications: New sucralfate 10 mL PO BID 600 mL 2RF K21.9 - Gastro-esophageal reflux disease without esophagitis polyethylene glycol 3350 (Miralax) Mix each packet with 8oz of water, Crystal light, or Gatorade zero, or Propel and do 7 packets on 12/15/23 and another 7 packets on 24 17 grams PO DAILY 14 ea 0RF Z01.818 - Encounter for other preprocedural examination pantoprazole 40 mg PO DAILY 90 tabs 0RF K21.9 - Gastro-esophageal reflux disease without esophagitis ondansetron Only take one every 12 hours as needed if you have nausea 4 mg PO Q12H 20 tabs 0RF nausea and vomiting R11.0 - Nausea Telehealth Telehealth Location of provider rendering services: practice address Location of patient: address on file Patient Identification confirmed using: Name, : Yes Telehealth method: voice only Patient verbally consented to treatment: Yes Patient verbally consented to billing insurance company: Yes Patient informed of any privacy concerns related to visit: Yes Minutes spent on Phone/Video with Pt.: 30 Coding Level of Care Code Tele Est Pt Level 4 (57036) Diagnoses Morbid obesity E66.01 Time Spent (min) 30 Comment With a Mozambican speaking certified court interpreter
[2023-12-04 14:35] VITALS: BMI 41.9
== END 2023-12-04 14:53 | disposition home or self-care (01) ==
LOC: HO.HBS 14:52
PROVIDERS: PCP Internal Medicine; Visit Provider Surgery
DX: E66.01 Morbid (severe) obesity due to excess calories (principal)
CPT/HCPCS: 99214

== ENCOUNTER 2023-12-07 08:31 | Outpatient (REF) | payer OTHER, SELFPAY ==
[2023-12-10 10:06] LABS: H Pylori Breath Test Negative (Negative)
== END 2023-12-07 08:32 | disposition home or self-care (01) ==
LOC: HO.LNP 08:31
PROVIDERS: Visit Provider Physician Assistant Surgical
DX: Z01.818 Encounter for other preprocedural examination (principal)
CPT/HCPCS: 83013

== ENCOUNTER 2023-12-07 09:56 | Outpatient (REF) | payer OTHER, SELFPAY ==
[2023-12-07 10:15] LABS: MANUAL DIFF FLAG NO
[2023-12-07 10:30] LABS: Basophils Absolute Auto 0.1 X10*3/uL (0.0-0.2); Basophils Percent Auto 0.6 % (0-2); Eosinophils Absolute Auto 0.1 X10*3/uL (0.0-0.4); Eosinophils Percent Auto 1.4 % (0-4); Hematocrit 43.6 % (37.0-47.0); Hemoglobin 14.2 g/dl (12.0-16.0); Imm Gran Abs Auto 0.03 X10*3/uL (0.00-0.03); Imm Gran Pct Auto 0.4 % (0.0-0.4); Lymphocytes Absolute Auto 2.2 X10*3/uL (1.2-4.9); Lymphocytes Percent Auto 28.3 % (20-40); Mean Corpuscular HGB Conc 32.6 g/dl (31.0-35.0); Mean Corpuscular Hemoglobin 27.6 pg (27.0-33.0); Mean Corpuscular Volume 84.7 fL (80.0-98.0); Mean Platelet Volume 10.1 fL (9.4-12.3); Monocytes Absolute Auto 0.5 X10*3/uL (0.1-1.2); Monocytes Percent Auto 6.6 % (2-11); Neutrophils Absolute Auto 4.9 x10*3/uL (2.0-8.3); Neutrophils Percent Auto 62.7 % (45-73); Platelet Count 247 X10*3/uL (160-400); Prothrombin Time 11.7 SEC (11.1-13.3); Red Blood Count 5.15 X10*6/uL (4.20-5.50); White Blood Count 7.9 X10*3/uL (4.8-10.8)
[2023-12-07 10:33] LABS: Partial Thromboplastin Time 29.2 SEC (26.0-36.8)
[2023-12-07 11:20] LABS: Estimated Average Glucose 114 mg/dL; Hemoglobin A1c % 5.6 % (<6.0)
[2023-12-07 11:59] LABS: Alanine Aminotransferase 18 U/L (0-31); Albumin Level 3.9 g/dL (3.5-5.0); Alkaline Phosphatase 105 U/L (39-117); Anion Gap 11 (12-20); Aspartate Amino Transferase 17 U/L (5-31); Bilirubin Total 0.5 mg/dL (0.0-1.0); Blood Urea Nitrogen 15 mg/dL (9-16); C Reactive Protein 0.52 mg/dL (< or = 0.50); Carbon Dioxide 27 mmol/L (22-29); Chloride 108 mmol/L (96-108); Cholesterol 226 mg/dL (<200); Estimated Glomerular Filt Rate > 60; Glucose Random 88 mg/dL (60-115); HDL Cholesterol 51 mg/dL (>40); LDL Cholesterol Calculated 156 mg/dL (<100); Potassium 4.6 mmol/L (3.3-5.1); Sodium 141 mmol/L (135-145); Total Protein 6.9 g/dL (6.5-8.0); Triglycerides 99 mg/dL (<150)
[2023-12-07 12:07] LABS: Insulin 13 uU/mL (2-29); TSH reflex Free T4 1.61 uIU/mL (0.32-4.0)
== END 2023-12-07 09:57 | disposition home or self-care (01) ==
LOC: HO.LAB 09:56
PROVIDERS: PCP Internal Medicine; Visit Provider Surgery
DX: E66.01 Morbid (severe) obesity due to excess calories (principal)
CPT/HCPCS: 36415; 80053; 80061; 83036; 83525; 84443; 85025; 85610; 85730; 86140

== ENCOUNTER 2023-12-08 07:57 | Outpatient (REF) | payer OTHER, SELFPAY | END 2023-12-08 07:58 | disposition home or self-care (01) | LOC: HO.MAMMO 07:57 | PROVIDERS: PCP Internal Medicine; Visit Provider Internal Medicine | DX: Z12.31 Encounter for screening mammogram for malignant neoplasm of breast (principal) | CPT/HCPCS: 77063; 77067 ==

== ENCOUNTER → 2023-12-08 08:15 | Outpatient (BNV) | payer OTHER, SELFPAY | PROVIDERS: PCP Internal Medicine; Visit Provider Radiology Diagnostic Radiology | DX: Z12.31 Encounter for screening mammogram for malignant neoplasm of breast (principal) | CPT/HCPCS: 77063; 77067 ==

== ENCOUNTER → 2023-12-09 13:19 | Outpatient (BNVA) | payer SELFPAY | PROVIDERS: PCP Internal Medicine; Visit Provider Physician Assistant Surgical ==

== ENCOUNTER → 2023-12-11 07:59 | Outpatient (BNVA) | payer SELFPAY | PROVIDERS: PCP Internal Medicine; Visit Provider Physician Assistant Surgical ==

== ENCOUNTER → 2023-12-16 15:48 | Outpatient (BNVA) | payer OTHER, SELFPAY | PROVIDERS: PCP Internal Medicine; Visit Provider Physician Assistant Surgical ==

== ENCOUNTER 2023-12-16 16:10 | Outpatient (AMB) | payer OTHER, SELFPAY ==
[2023-12-16 16:27] VITALS: BP 120/80; BMI 38.3
--- NOTE | 2023-12-16 16:27 | A.OFFPC_ITS ---
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 Over Hand Required: No Accompanied by: Mother Allergies atorvastatin Adverse Reaction (Unknown, Verified 12/16/23 16:59) dizziness,blurry vision Medication List - Last Reconciled 12/16/23 by Radha Poe MD cholecalciferol (vitamin D3) 125 mcg PO DAILY 90 days cyanocobalamin (vitamin B-12) 500 mcg PO DAILY 90 days ondansetron 4 mg PO Q12H pantoprazole 40 mg PO DAILY polyethylene glycol 3350 (Miralax) 17 grams PO DAILY sucralfate 10 mL PO BID vitamin A palmitate 3,000 mcg PO DAILY 60 days [walker with seat and wheels walker with seat and wheels please] Tobacco use date assessed: 12/16/23 Dental Screening Dental Screen Date: 12/16/23 Did you have a dental visit in the last 12 months?: No Did you have a dental problem in the last 6 months where you did not have access to dental care?: No Was dental information given to patient?: Patient has dentist HPI HPI Comments History of Present Illness Details This is a 53-year-old female with chronic GERD and chronic idiopathic constipation as well as low vitamin-D and B12 deficiency that comes today for follow-up on her conditions. GERD stable with PPIs. Constipation well control with medications. On vitamin-D supplements and vitamin B12 supplements for her vitamin deficiencies. She is obese with a BMI of 38.3 and will have bariatric surgery tomorrow. No chest pain or shortness of breath. 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 1. Little interest or pleasure in doing things: not at all 2. Feeling down, depressed, or hopeless: not at all 3. Trouble falling or staying asleep, or sleeping too much: not at all 4. Feeling tired or having little energy: not at all 5. Poor appetite or overeating: not at all 6. Feeling bad about yourself - or that you are a failure or have let yourself or your family down: not at all 7. Trouble concentrating on things, such as reading the newspaper or watching television: not at all 8. Moving or speaking so slowly that other people could have noticed. Or the opposite - being so fidgety or restless that you have been moving around a lot more than usual: not at all 9. Thoughts that you would be better off or of hurting yourself in some way: not at all Total score: 0 Depression Screening Interpretation: Negative Depression Screening Done: Yes 61527 - PHQ-9 Billing: Yes Source: Developed by Drs. Bonifacio Dorsey, Sandy Owen, Farshad Skinner and colleagues, with an educational isma from [employer]. Thrive Questionnaire Date Thrive assessed: 12/16/23 I am a: Patient What is your living situation today?: I have a steady place to live Within the past 12 months, did the food you bought not last and you didn't have the money to get more?: Never true Within the past 12 months, did you worry whether your food would run out before you got money to buy more?: Never true Do you have trouble paying for medicines?: No Do you have trouble getting transportation to medical appointments?: No Do you have trouble paying your heating and electricity bill?: No Do you have trouble taking care of your child, family member or friend?: No Do you have trouble with day-to-day activities such as bathing, preparing meals, shopping, managing finances, etc.?: No Are you currently unemployed and looking for a job?: No Are you interested in more education?: No Please select the resources that you would like help with: None Currently or been in a relationship where the following occur: no concerns reported THRIVE Score: 0 AUDIT C Alcohol Use Questionnaire (AUDIT-C) 1. How often do you have a drink containing alcohol?: Never Total Score: 0 JOSE RAFAEL-7 AMB Questionnaire JOSE RAFAEL-7 Date JOSE RAFAEL - 7 assessed: 12/16/23 Feeling nervous, anxious, or on edge: 0 = Not at all Not being able to stop or control worryin = Not at all Worrying too much about different things: 0 = Not at all Trouble relaxin = Not at all Being so restless that it is hard to sit still: 0 = Not at all Becoming easily annoyed or irritable: 0 = Not at all Feeling afraid as if something awful might happen: 0 = Not at all Total JOSE RAFAEL-7 score (0-4 normal; 5-9 mild; 10-14 moderate; 15-21 severe): 0 Source: Developed by Drs. Bonifacio Dorsey, Sandy Owen, Farshad Skinner and colleagues, with an educational isma from [employer]. JOSE RAFAEL-7 Assessment Billing JOSE RAFAEL-7 Assessment Tool: JOSE RAFAEL-7 Assessment 85864 Review of Systems Const All systems reviewed & are unremarkable except as noted in HPI and below Eyes Reports no additional complaints, Denies change in vision and Denies other visual disturbances Card Denies chest pain at rest, Denies chest pain with activity, Denies edema, Denies irregular heart rhythm, Denies claudication, Denies dyspnea, Denies dyspnea on exertion, Denies orthopnea, Denies paroxysmal nocturnal dyspnea and Denies slow heart rate Resp Denies cough, Denies dyspnea and Denies dyspnea on exertion Neuro Denies behavioral changes and Denies confusion Psych Denies behavioral changes and Denies confusion Navid/Lymph Denies easy bleeding and Denies easy bruising Physical exam (Primary Care) Vital Signs: Last Vital Signs BP 120/80 12/16/23 16:27 BMI result Body Mass Index 38.3 BMI Assessment/Plan discussion: High (Going to bariatric surgery tomorrow) BMI High, discussed plan: lifestyle, weight reduction, dietary, physical activity and alcohol moderation Tobacco/Smoking Status: Tobacco use Status Tobacco use date assessed 12/16/23 12/16/23 16:33 Patient Tobacco Use Status Never used Tobacco 12/16/23 16:33 e-Cigarette/Vaping Use Never Used 12/16/23 16:33 PHQ-9: PHQ-9 Score PHQ-9: Total score 0 12/16/23 17:05 Depression Screening Interpretation: Negative Thrive Assessment: Date of Thrive Assessment Date Thrive assessed 12/16/23 12/16/23 16:35 Currently or been in a relationship where the following occur: no concerns reported Const General: No confusion Orientation/consciousness: patient oriented x3 and No confusion Resp Effort & Inspection: normal respiratory effort Auscultation: clear to auscultation bilaterally Cardio Jugular venous distension: no JVD Rate: regular rate Rhythm: regular rhythm Heart sounds: S1 normal heart sound present and S2 normal heart sound present Neuro General: patient oriented x3, no focal motor deficits and No confusion Extrem General: Yes full ROM Psych Appearance: grossly normal Assessment and Plan Assessment & Plan (1) Low vitamin D level: Code(s): R79.89 - Other specified abnormal findings of blood chemistry Plan: Continue vitamin-D supplements. (2) GERD (gastroesophageal reflux disease): Code(s): K21.9 - Gastro-esophageal reflux disease without esophagitis Plan: Continue PPIs. (3) Chronic idiopathic constipation: Code(s): K59.04 - Chronic idiopathic constipation Plan: Continue MiraLax as needed. (4) B12 deficiency: Code(s): E53.8 - Deficiency of other specified B group vitamins Plan: Continue vitamin B12 supplements. Medications: Refilled pantoprazole 40 mg PO DAILY 90 tabs 0RF K21.9 - Gastro-esophageal reflux disease without esophagitis Coding Level of Care Code Est Pt Level 4 (49371) Diagnoses Low vitamin D level R79.89 GERD (gastroesophageal reflux disease) K21.9 Chronic idiopathic constipation K59.04 B12 deficiency E53.8 Additional Codes JOSER AFAEL-7 Assessment Billing - JOSE RAFAEL-7 Assessment Tool: JOSE RAFAEL-7 Assessment 09366 ([id number]) Time Spent (min) 22
== END 2023-12-16 17:07 | disposition home or self-care (01) ==
PROVIDERS: PCP Internal Medicine; Visit Provider Internal Medicine
DX: R79.89 Other specified abnormal findings of blood chemistry (principal); K21.9 Gastro-esophageal reflux disease without esophagitis; K59.04 Chronic idiopathic constipation; E53.8 Deficiency of other specified B group vitamins
CPT/HCPCS: 99214

== ENCOUNTER 2023-12-17 10:38 | Inpatient (IN) | payer OTHER, SELFPAY ==
[2023-12-17] VITALS (10 sets, daily range): BP systolic 138–159; BP diastolic 52–85; PULSE 58–83; RESP 17–21; TEMP 36.1–37.1; O2SAT 94–100; BMI 38.3; BMI 46.1
[2023-12-17] MEDS: Aprepitant 32 MG/4.4 ML VIAL IVPUSH (11:00)
[2023-12-17] MEDS: Lactated Ringers 1,000 ML 999 ML IV ×2 (11:15→12:21)
--- NOTE | 2023-12-17 11:18 | HO.ANESPROP2 ---
FORMERLY [facility], [facility] Active Problems Active Problems: All Active Problems B12 deficiency (Acute) GERD (gastroesophageal reflux disease) (Acute) Chronic idiopathic constipation (Acute) RYAN (obstructive sleep apnea) (Acute) Physical exam (Acute) Polyarthralgia (Acute) Screen for colon cancer (Acute) Class 2 obesity with body mass index (BMI) of 37.0 to 37.9 in adult (Acute) Lesion of adrenal gland (Acute) Pain of both elbows (Acute) Abdominal lump (Acute) Osteoarthritis of knee (Acute) UTI (urinary tract infection) (Acute) Low vitamin D level (Acute) Right elbow pain (Acute) Right shoulder pain (Acute) Screening for hypothyroidism (Acute) Right flank pain (Acute) Left knee pain (Acute) Right knee pain (Acute) Eye exam, routine (Acute) Potential exposure to STD (Acute) Urinary incontinence (Acute) Encounter for annual routine gynecological examination (Acute) Right knee pain (Acute) Screening due (Acute) Hyperkalemia (Acute) History of kidney stones (Acute) Pap test, as part of routine gynecological examination (Acute) Kidney stones (Acute) Lower back pain (Acute) Pure hypercholesterolemia (Acute) Past Medical History Medical History Morbid obesity Anxiety Sleep apnea Hyperkalemia History of kidney stones Pap test, as part of routine gynecological examination Kidney stones Lower back pain Pure hypercholesterolemia Family History Family History Father Liver cancer Mother CVD (cardiovascular disease) Hypertension Surgical History Surgical History History of bladder repair surgery History of ureterostomy History of extraction of renal calculus History of endometrial ablation History of section History of tubal ligation History of Problems with Anesthesia: No Social History Social History Housing: Apartment Are you a primary daycare assistant to a significant other at home: Yes (mother, aunt will assist post-op) Do you presently have visiting nurse or other home services: No Alcohol intake: never Patient Tobacco Use Status: Never used Tobacco e-Cigarette/Vaping Use: Never Used Second Hand Smoke Exposure: No service: No Current occupational status: employed Current occupational exposures/hazards: No Cognitive needs: No Hearing needs: No Vision needs: Yes Meds Allergies Allergy/AdvReac Type Severity Reaction Status Date / Time atorvastatin AdvReac Unknown dizziness,blurry Verified 12/16/23 16:59 vision Active Medications: Current Medications Lactated Ringer's (Lr) 1,000 mls @ 999 mls/hr IV .Q1H1M LUCIEN Stop: 12/17/23 12:45 Last Admin: 12/17/23 11:15 Dose: 999 mls/hr Exam Height,Weight and Vital Signs: Weight 72.575 kg Last Vital Signs Temp 98.7 F 12/17/23 10:52 Pulse 78 12/17/23 10:52 Resp 20 12/17/23 10:52 BP 151/85 H 12/17/23 10:52 Pulse Ox 98 12/17/23 10:52 O2 Del Method Room Air 12/17/23 10:52 Pertinent Lab Results Pertinent Lab Results: Laboratory Tests 12/07/23 10:08 Blood Type O Negative Antibody Screen NEGATIVE Airway Mallampati Class: II TM Dist: >3cm Neck ROM: Full Loose/Missing/Broken Teeth: No Heart: RRR Lungs: CTA Assessment and Plan Assessment Anesthesia Assessment: Anesthesia Plan Discussed and Chart Reviewed Final Anesthetic Review History of Problems with Anesthesia: No NPO: Yes ASA Class: II Final Preanesthetic Review: Meds/Allgs Chart Reviewed, Consent Obtained/Reviewed and Anes Risks/Benef Reviewed Patient Risk: Low Procedure Risk: Intermediate Anesthetic Plan Anesthetic Plan: GA Disposition: Standard PACU
--- NOTE | 2023-12-17 12:59 | MHC.SHP ---
Pre-Procedural Eval Section A - 24 Hr Update-Section A only Date of Service: 12/17/23 The patient is an INPATIENT: Yes The patient has been examined within 24 hours of the surgical procedure. The History & Physical has been completed within 30 days and I have reviewed it.: Yes Section B - Complete if H&P > 30 days Chief Complaint: obesity Relevant Family History (Specify if Yes): No Relevant Social History: None Present Medications: None Medical History: No relevant PMH History of Previous Operations: No relevant previous surgery Allergies: Allergies Allergy/AdvReac Type Severity Reaction Status Date / Time atorvastatin AdvReac Unknown dizziness,blurry Verified 12/16/23 16:59 vision Review of Systems Sugical H&P ROS: Negative: Constitution, Cardiovascular, Respiratory, Neurological, Psychiatric, Hem-Onc, Allergic/Immunologic, Gastrointestinal, Genitourinary, Musculoskeletal, Integumentary, Endocrine and Eyes/Ears/Nose/Throat Exam Surgical H&P Exam: Normal: HEENT, Normal: Heart, Normal: Lungs, Normal: Extremities, Normal: Abdomen, Normal: Skin and Normal: Neurological Plan Diagnosis/Plan: Unchanged I have reviewed the history and physical and performed a pertinent physical examination on my patient. No changes have occurred unless specified. Time Spent With Patient Time: Total time managing care of this patient today ____ minutes.
--- NOTE | 2023-12-17 13:04 | PM.OP ---
Brief Operative Note Date of Service: 12/17/23 Pre-op diagnosis: Severe obesity with comorbidities (see below) Post-op diagnosis: same Procedure: INITIAL PATIENT BMI ON PRESENTATION AT OUR OFFICE:43.7 kg/m2 LAST BMI BEFORE SURGERY: 37.4 kg/m2 COMORBIDITIES: sleep apnea on CPAP, GERD, hyperlipidemia, nephrolithiasis, liver fibrosis ?The patient presented to the Weight Management Program with significant obesity that was negatively impacting the patient's comorbidities as listed above.? The program is a phased program with a special focus on preoperative medical weight management to promote substantial weight loss and prepare the patients for the second phase of the program: bariatric surgery. The patient participated in an intensive weekly lifestyle ?intervention and exercise program during which the patient ?has lost between the initial office visit and the last preoperative visit 29.6lbs, or 15.78% of initial actual body weight. It was deemed appropriate for the patient to now have bariatric surgery. In light of the current Covid-19 pandemic and the well documented strong association of obesity and increased risk of worse outcomes if infected with Covid-19 (REFERENCES:https://pubmed.ncbi.nlm.nih.gov/36938085/,?https://pubmed.ncbi.nlm.nih.gov/90205431/), any delay in undergoing bariatric surgery may lead to the patient's worsening health condition and increased?risk of more severe Covid-19 disease if infected. In addition a recent?study from [facility] published in [employer] on 08/26/2021 ([email or web address]) found that, among patients with obesity, substantial weight loss achieved with surgery was associated with improved outcomes of COVID-19 infection. The findings suggest that obesity can be a modifiable risk factor for the severity of COVID-19 infection. In addition, the patient met the BMI-criteria for bariatric surgery based on the BMI on initial presentation. The patient should not be penalized for achieving such weight loss because ?it is not sustainable long-term without surgical intervention and it was achieved in preparation for bariatric surgery ?under my direction and based on my published research ([email or web address]).pdf and?https://www.soard.org/article/[email or web address](34)32869-X/pdf) ?that a 10% preoperative weight loss improves long-term weight loss after surgery and reduces perioperative complications.? Insurance carriers such as [facility] have endorsed my recommendations ?and have included in their policies criteria to include a 10% preoperative weight loss requirement. PROCEDURE: Esophago-gastroscopy, laparoscopic sleeve gastrectomy and laparoscopic gastropexy INDICATIONS: This is a 53 year-old female who was electively scheduled for laparoscopic, possibly open sleeve gastrectomy. The risks and complications of the procedure were discussed with the patient in advance, particularly the possibility of ; pulmonary embolism; staple line leak; bleeding; GERD; cardiac, pulmonary, or renal complications; as well as long-term problems such as insufficient weight loss, vitamin deficiency, strictures, or ulcers. The patient understood all the risks, and was in agreement to proceed with surgery. DESCRIPTION OF PROCEDURE: After informed consent was obtained from the patient, the patient was given preoperative antibiotics, and was transferred to the operating room. After successful induction of general anesthesia, pneumatic compression devices were placed on both lower extremities. An upper endoscopy was performed next. The oropharynx and esophagus appeared to be within normal limits. There was no diaphragmatic hernia present. The stomach was entered. Then after all fluid and air were suctioned and the stomach was fully decompressed, the scope was withdrawn and secured in the mid esophagus. The patient was then prepped and draped in the usual sterile manner, and abdominal access was established at the right upper quadrant with the Fredy technique. A 12 mm blunt port was inserted, and the abdomen was insufflated with CO2 to a pressure of 15 mmHg. Under direct visualization, additional ports were placed, specifically two 5 mm Versi-step ports to the left upper quadrant, and a 5 mm Versi-Step port to the right upper quadrant. 1% lidocaine plain was used to infiltrate all port sites as well as all fascia defects. Following that, the patient was placed in a steep reverse Trendelenburg position. An additional 5 mm port was placed to the right flank for the Mediflex retractor that was used to retract the left lobe of the liver. The gastro-esophageal fat pad was opened with the ultrasonic device (Thjojoerbeat, Olympus) and the anterior esophagus and hiatus were exposed. The angle of His was opened with the ultrasonic device the fundus of the stomach from any diaphragmatic and splenic attachments. I then opened the gastrocolic ligament between the transverse colon and the greater curvature of the stomach with the ultrasonic device to enter the lesser sac and facilitate the ligation of the short gastric vessels. I started at a mid-point along the greater curvature and using the Thunderbeat, all short gastric vessels were divided all the way to the angle of His until the left lory was completely dissected at its entirety. I then divided the gastro-colic ligament distally to a distance of about 3-4 cm proximal to the pylorus. ? The stomach was then divided transversely with one Endo MOHSEN-45 purple and four MOHSEN-60 articulating purple loads using the [employer] stapler and loads. Every effort was made that the gastric sleeve had a tubular shape and an even caliber throughout. Once the sleeve resection was completed, the staple line of the gastric sleeve was reinforced with Hemoclips. The resected stomach was retrieved without difficulty from the Fredy port. A gastropexy was then performed in order to prevent postoperative GERD and partial gastric volvulus. Several interrupted 2.0 Surgidac sutures were placed between the sleeve's staple line and the previously divided greater omentum and gastro-colic ligament using the Endo-Stitch device. ?An upper endoscopy was performed. There was no narrowing at the GE junction. The scope was easily advanced all the way to the pylorus which was clearly visualized. There was no narrowing anywhere and the sleeve's caliber was even throughout. The sleeve's staple line was inspected and there was no evidence of ischemia, bleeding or dehiscence. At that point the gastroscope was withdrawn from the patient?s mouth while we were decompressing the bowel and the stomach from any remaining air. I looked into the lesser sac to see how the sleeve was situating and it was situating well. There was no bleeding from the staple line, spleen, or short gastric vessels. The Mediflex retractor was removed, and the undersurface of the liver was inspected and there was no bleeding. The patient was placed in supine position. I closed the fascial defect of the 12 mm port site with a figure of eight #1 Polysorb suture. Then 30cc Ropivacaine plain with 10 mg of Dexamethasone were used to infiltrate the fascial closure as well as all skin incisions. A total of 6ml Zynrelef was applied in the Fredy wound. At this point, the abdomen was deflated, all ports were removed under direct vision, and no bleeding was noted from any of the port sites. The skin incisions were irrigated with saline and were closed with 4-0 absorbable monofilament sutures. Steri-Strips and OpSites were used to cover all incisions. The patient was extubated and was transferred in stable condition to the recovery room for further care. I was present and performed all hdz parts of the procedure. Mr. Lopez was the list of first job ideas. There were no residents to assist with this case. Bladimir Renner MD, PhD, FACS Surgeon: Zaire Renner MD Anesthesia: GETA, local and other (TAP block and 6ml Zynrelef) Was an Emergency Room Nurse used for this Procedure?: No Emergency Room Nurse: Uri Lopez Estimated blood loss (mL): 10 IV fluids (mL): 1,700 Urine output (mL): 0 (No Sheldon to record output) Pathology: other (Stomach) Condition: stable Disposition: PACU
--- NOTE | 2023-12-17 13:08 | P.PNGS_ITS ---
Subjective Subjective Date of Service: 12/17/23 Interval history: Feels well. Mild incisional pain. She is tolerating phase 1 bariatric diet Physical Exam 2 Vital Signs: Vital Signs: Last Vital Signs Temp 98.7 F 12/17/23 10:52 Pulse 78 12/17/23 10:52 Resp 20 12/17/23 10:52 BP 151/85 H 12/17/23 10:52 Pulse Ox 98 12/17/23 10:52 O2 Del Method Room Air 12/17/23 10:52 BMI result Body Mass Index 28.0 GI: Inspection: Yes normal to inspection, Yes incision (clean, dry and intact) and Yes obesity Palpation (GI): Soft to palpation Extrem: Right lower extremity: normal to inspection (no calf tenderness) L eft lower extremity: normal to inspection (no calf tenderness) Objective Data Labs 12/17/23 16:03 12/17/23 16:03 Procedures Date of Service Date of Service: 12/17/23 Progress Note: A&P Assessment and plan (1) Obesity: Status: Acute Assessment and Plan: s/p laparoscopic sleeve gastrectomy and gastropexy Doing well Will check am labs and if OK the patient will be discharged home (2) BMI 38.0-38.9,adult: Status: Acute (3) GERD (gastroesophageal reflux disease): Status: Acute (4) RYAN (obstructive sleep apnea): Status: Acute (5) Osteoarthritis of knee: Status: Acute (6) Hyperlipidemia: Status: Acute (7) Steatosis, liver: Status: Acute (8) Liver fibrosis: Status: Acute (9) History of kidney stones: Status: Acute (10) S/P laparoscopic sleeve gastrectomy: Status: Acute Time Spent With Patient Time: Total time managing care of this patient today ____ minutes. Quality Stroke Does the patient have a stroke diagnosis?: No VTE Prior VTE?: No VTE Risk Level:: Surgical - moderate VTE Device Contraindication: N/A - Device Ordered VTE Drug Contraindication: Treatment Not Indicated
[2023-12-17] MEDS: ceFAZolin Sodium/Dextrose,Iso 2 GM/50 ML PIGGYBACK IV ×2 (13:20→18:20)
[2023-12-17] MEDS: Acetaminophen 1,000 MG/100 ML PIGGYBACK 400 MG IV (14:40)
--- NOTE | 2023-12-17 15:53 | P.DS_ITS ---
DS: Providers Provider Date of Service: 12/18/23 Date of admission: 12/17/23 10:38 Primary care physician: Radha Poe MD DS: Diagnosis Discharge Diagnosis (1) Obesity: Status: Acute (2) BMI 38.0-38.9,adult: Status: Acute (3) GERD (gastroesophageal reflux disease): Status: Acute (4) RYNA (obstructive sleep apnea): Status: Acute (5) Osteoarthritis of knee: Status: Acute (6) Hyperlipidemia: Status: Acute (7) Steatosis, liver: Status: Acute (8) Liver fibrosis: Status: Acute (9) History of kidney stones: Status: Acute DS: Summary Hospital Course Hospital Course: ADMITTING DIAGNOSIS: obesity, ryan, hld ? DISCHARGE DIAGNOSIS: same, s/p laparoscopic sleeve gastrectomy ? PAST SURGICAL HISTORY: bladder repair, ureterostomy, cesarian section, tubal ligation ? PROCEDURE: upper endoscopy, laparoscopic sleeve gastrectomy ? DISCHARGE SUMMARY: ? History of Present Illness: ? The patient is a?53 year-old woman with a BMI of?48.8 kg/m2 and associated co- morbidities as described above. The patient had extensive work-up,lost?34.6 lbs preoperatively and was electively scheduled for laparoscopic, possible open sleeve gastrectomy and gastropexy. Risks and complications of the surgery were discussed with the patient in advance, particularly the possibility of , pulmonary embolism, anastomotic leak, bleeding, bowel injury, GERD, cardiac, renal or pulmonary complications. The patient understood all the risks and was in agreement with the surgical plan. ? Hospital Course: ? The patient underwent an uneventful laparoscopic sleeve gastrectomy with gastropexy on the day of admission. Postoperatively, the patient was transferred to the surgical floor. The patient received IV Acetaminophen and IV dilaudid for pain control. Patient was started on bariatric phase 1 diet POD #0. On postoperative day one, the patient was feeling well without nausea, vomiting, fevers, or tachycardia. The patient had some mild incisional pain and the abdomen was soft. ? On the morning of postoperative day one, the patient was continued on 1 ounce of water or ice every half hour. During the day, the patient did fairly well, having some incisional pain, but able to ambulate adequately and to tolerate liquids well. ? Since the patient is doing well, we decided that the patient was ready to be discharged. The patient was given instructions to follow-up with me next week and to call my office for any fever over 101, persistent abdominal pain, nausea, vomiting, GERD, symptoms of DVT such as calf tenderness, or leg swelling, or pulmonary embolism such as chest pain or shortness of breath. The patient was also instructed to drink 40-60 ounces of liquids per day using the 1-ounce cups. The patient had been given prescriptions for Tylenol for pain, Zofran prn for nausea, and pantoprazole and carafate previously. The patient was encouraged to ambulate and use the incentive spirometer. The patient was allowed to shower, but no baths, and encouraged to stay active at home. All of these instructions were given to the patient personally. All questions were answered and the patient understood all instructions, the instructions were also given to the patient in print. Time Attestation Total time managing care of this patient today: 25 mintues. Discharge Coordination Time (in mins): 25 Quality: Safe Use of Opioids Does Pt have an Active Cancer Diagnosis on the Problem List?: No Quality: Stroke Does the patient have a stroke diagnosis?: No Physical Exam Vital Signs: Vital Signs: Last Vital Signs Temp 97.1 F 12/17/23 15:20 Pulse 76 12/17/23 15:35 Resp 18 12/17/23 15:35 BP 142/71 H 12/17/23 15:35 Pulse Ox 95 12/17/23 15:35 O2 Del Method Room Air 12/17/23 15:35 O2 Flow Rate 3 12/17/23 15:30 BMI result Body Mass Index 38.3 DS: Data Data Completed and Pending Pending studies at discharge: Pending at discharge 12/17/23 14:30 Surgical [PTH] Routine 12/17/23 14:45 Surgical [PTH] Routine Discharge Plan Discharge Anticipated Discharge Date/Time: 12/18/23 10:00 Patient Disposition: Home, Self-Care Discharge Diagnosis: s/p laparoscopic sleeve gastrectomy Referrals: Radha Rachel MD [Primary Care Provider] - 1 Week Discharge Medications: Continued sucralfate 100 mg/mL suspension 10 ml PO BID Qty: 600 2RF Patient Comments: postop meds ondansetron 4 mg tablet,disintegrating 4 mg PO Q12H Qty: 20 0RF Patient Comments: postop meds Rx Instructions: Only take one every 12 hours as needed if you have nausea No Action (DME) walker with seat and wheels See Rx Instructions .Route .MEDSUPPLY Qty: 1 0RF Rx Instructions: walker with seat and wheels please Discharge Orders: Discharge Order (Routine); Ordered 12/18/23 Ordered By: Uri Lopez Activity on Discharge: No heavy lifting Stand Alone Forms: Patient Portal Discharge page Print Language: Danish Care Plan Goals: weight loss Health Concerns: obesity Plan of Treatment: No tub baths, sex or returning to work until discussed at first post op appointment. No exercise, alcohol, tobacco or illegal drug use. Continue to use incentive spirometer hourly while awake. Walk in home for 5- 10 minutes every 2 hours during the first week. Follow all instructions in the bariatric handbook and call with any questions.Discharge Instructions 1. Please call your doctor or come back to the emergency room should any new symptoms arise. 2. You will receive a courtesy call from [facility] 24-48 hours after discharge. 3. Activity: abstain from alcohol, practice limited stair climbing, no bending, no driving, no exercise, no illicit substances, no lifting, no sex, no tub bath, no work. 4. Diet: continue as discussed with Dr. Renner. 5. Dressing Change/Wound Care: Your incision is covered by clear bandages and guaze underneath. If the area is tender, you may apply an ice pack for short intervals (no more than 20 minutes on, followed by at least 20 minutes off). Do not apply heat. Do not use creams, lotions, or topical antibiotics unless instructed to do so by your surgeon. These can cause infection or allergic reaction. 6. Call your doctor if: - Your temperature exceeds 101.5 F - You experience excessive pain or swelling - You have an unexpected reaction to medication - You have excessive bleeding - You experience continued vomiting/nausea - Your incision begins to separate - Your incision shows signs of infection such as increased redness, swelling, excessive pain, heat, or drainage (light blood or clear fluid is normal) 7. General instructions: No lifting greater than 5 lbs for 1 week and not more than 20lbs the next 3?weeks. No driving until seen at the office in 5-7 days after surgery. If you do not move your bowels in the next 2 days, please tell?Dr. Renner. Please walk around your home every hour or two to prevent blood clots from forming in your legs. You do not need to wake from sleeping to walk. Please sleep in a bed or couch to prevent kinking at the hips and knees. Please take your incentive spirometer (your lung sales and marketing intern) home with you and use it for the next few days to prevent pneumonia. You may shower, no hot tubs, baths or swimming pools.?Please follow the post op diet instructions you are?given by Dr Renner? and text me daily at 5-6pm for an update.?If you have any issues or concerns or questions please communicate this to him via text.? The Celebrate shakes have all of the bariatric vitamins you need if you consume these shakes. If you are drinking other protein shakes, you will need to purchase the Celebrate multivitamins and calcium that are available in the hospital gift shop on the first floor of the main hospital.??Do not take anything without first discussing with Dr Renner. Please make sure you are consuming at least 40 ounces of fluids per day starting the?day AFTER your discharge from the hospital. Always drink 1-2 ml per minute using the 5ml?syringe. If you drink faster you may experience?bloating,?gas pain, burping, nausea or heartburn. In that case please slow down your pace and use the syringe to?understand better the?proper?pace and volume of drinking. Do not hesitate to contact the office with any questions at . The patient's medical history has been reviewed and they are considered low risk for post op DVT and therefore DVT prophylaxis is not considered necessary. Travel after surgery was reviewed. The patient has not disclosed any travel plans during the first 30 days after surgery and they have been advised that within the first 30 days after surgery any bus, plane, train or car travel over 2 hours in duration is contraindicated due to the possibility of developing blood clots from immobility. Any travel, needs to include periods of ambulation of 10 minutes in duration every 2 hours.? The patient was instructed to discuss any plans for travel during this period with their bariatric surgeon. Assessment: stable s/p laparoscopic sleeve gastrectomy
[2023-12-17 16:10] LABS: Hematocrit 40.3 % (37.0-47.0); Hemoglobin 13.1 g/dl (12.0-16.0)
[2023-12-17 16:25] LABS: Anion Gap 14 (12-20); Blood Urea Nitrogen 10 mg/dL (9-16); Calcium 8.6 mg/dL (8.4-10.2); Carbon Dioxide 23 mmol/L (22-29); Chloride 106 mmol/L (96-108); Creatinine Clr Calc Pharmacy 54.1; Estimated Glomerular Filt Rate > 60; Glucose Random 120 mg/dL (60-115); Potassium 3.5 mmol/L (3.3-5.1); Sodium 139 mmol/L (135-145)
[2023-12-17] MEDS: Lactated Ringers 1,000 ML 100 ML IVCONT (17:35)
[2023-12-17] MEDS: HYDROmorphone HCl 0.5 MG/0.5 ML SYRINGE 0.25 MG IVPUSH (17:43)
[2023-12-17] MEDS: Acetaminophen 1,000 MG/100 ML PIGGYBACK 16.7 MG IV (19:16)
--- NOTE | 2023-12-17 19:58 | PHA.MEDREC ---
Pharmacy Consult ? Medication Reconciliation Pharmacy has completed the medication reconciliation. Utilized cable installer repairer helper services. Patient states she has not taken her vitamins, but will begin to take them after surgery.
[2023-12-17] MEDS: Famotidine/PF 20 MG/2 ML VIAL IVPUSH (21:17)
[2023-12-18] MEDS: Acetaminophen 1,000 MG/100 ML PIGGYBACK 16.7 MG IV ×2 (00:19→06:15)
[2023-12-18] MEDS: Lactated Ringers 1,000 ML 100 ML IVCONT (01:57)
[2023-12-18] MEDS: ondansetron HCL 4 MG/2 ML VIAL IVPUSH (03:12)
[2023-12-18 03:14] VITALS: BP 147/69; PULSE 53; RESP 18; TEMP 36.5; O2SAT 97
[2023-12-18 05:58] LABS: MANUAL DIFF FLAG NO
[2023-12-18 06:31] LABS: Anion Gap 14 (12-20); Blood Urea Nitrogen 10 mg/dL (9-16); Calcium 8.9 mg/dL (8.4-10.2); Carbon Dioxide 22 mmol/L (22-29); Chloride 105 mmol/L (96-108); Creatinine Clr Calc Pharmacy 65.5; Estimated Glomerular Filt Rate > 60; Glucose Random 129 mg/dL (60-115); Potassium 4.5 mmol/L (3.3-5.1); Sodium 136 mmol/L (135-145)
[2023-12-18 07:12] VITALS: BP 167/79; PULSE 48; RESP 18; TEMP 36.4; O2SAT 99
[2023-12-18 07:28] VITALS: PULSE 60
[2023-12-18 07:28] LABS: Basophils Percent Auto 0.2 % (0-2); Hemoglobin 12.7 g/dl (12.0-16.0); Imm Gran Abs Auto 0.03 X10*3/uL (0.00-0.03); Imm Gran Pct Auto 0.3 % (0.0-0.4); Lymphocytes Absolute Auto 1.1 X10*3/uL (1.2-4.9); Mean Corpuscular HGB Conc 32.6 g/dl (31.0-35.0); Mean Corpuscular Hemoglobin 27.7 pg (27.0-33.0); Mean Platelet Volume 11.1 fL (9.4-12.3); Monocytes Absolute Auto 0.2 X10*3/uL (0.1-1.2); Monocytes Percent Auto 1.5 % (2-11); Neutrophils Absolute Auto 10.3 x10*3/uL (2.0-8.3); Platelet Count 230 X10*3/uL (160-400); Red Blood Count 4.59 X10*6/uL (4.20-5.50); Red Cell Distribution Width 13.3 % (11.0-16.0); White Blood Count 11.6 X10*3/uL (4.8-10.8)
[2023-12-18] MEDS: 0.9 % Sodium Chloride Flush 3 ML SYRINGE IVFLUSH (07:28)
[2023-12-18] MEDS: Famotidine/PF 20 MG/2 ML VIAL IVPUSH (07:28)
--- NOTE | 2023-12-18 09:16 | MHC.CM.PN ---
Patient lives at home with her mother. Functionally independent. Previously used a walker, but since losing weight is now ambulating independently. Has a CPAP, but no longer uses, unsure of supplier. PCP Radha Poe Patient reports HCP is her , copy requested. DP: Home self care, family at bedside to transport.
--- NOTE | 2023-12-18 12:30 | HO.POSTANES ---
Post Anesthesia Evaluation Post Anesthesia Evaluation Date of Service: 12/18/23 Vital Signs: Vital Signs Temp Pulse Resp BP Pulse Ox O2 Del Method O2 Flow Rate 12/18/23 07:28 60 12/18/23 07:12 97.6 F 48 L 18 167/79 H 99 Nasal Cannula 2 12/18/23 03:14 97.7 F 53 18 147/69 H 97 Room Air Anesthesia: General Endotracheal-GETA Mental Status: Awake Pain Control: Satisfactory Nausea/Vomiting: None Hydration: Adequate Anesthesia-Related Issues: No Anes. Related Issues
== END 2023-12-18 09:13 | disposition home or self-care (01) | DRG 403 ==
LOC: HO.SSSA 14:32 → HO.S3 15:49
PROVIDERS: Physician Assistant Surgical; Admitting Provider Surgery; PCP Internal Medicine; Visit Provider Surgery
PROC: 0DB64Z3 Excision of Stomach, Percutaneous Endoscopic Approach, Vertical (ICD-10-PCS; CPT 43845; principal; 2023-12-17 13:30)
DX: E66.01 Morbid (severe) obesity due to excess calories (principal); K74.00 Hepatic fibrosis, unspecified; G47.33 Obstructive sleep apnea (adult) (pediatric); K76.0 Fatty (change of) liver, not elsewhere classified; Z68.37 Body mass index [BMI] 37.0-37.9, adult; K21.9 Gastro-esophageal reflux disease without esophagitis; Z87.442 Personal history of urinary calculi; Z79.899 Other long term (current) drug therapy
CPT/HCPCS: 36415; 80048; 85014; 85018; 85025; 86850; 86900; 86901; 88304; 88307; 88342; A4649; C9088; C9145; J0131; J0690; J1100; J1170; J2250; J2405; J2704; J2795; J3010; J7120

== ENCOUNTER → 2023-12-17 10:38 | Outpatient (BNV) | payer OTHER, SELFPAY | PROVIDERS: Admitting Provider Surgery; PCP Internal Medicine; Visit Provider Surgery | DX: E66.9 Obesity, unspecified (principal); Z68.37 Body mass index [BMI] 37.0-37.9, adult | CPT/HCPCS: 43659; 43775; 99024; 99212 ==

== ENCOUNTER 2023-12-22 09:57 | Outpatient (AMB) | payer OTHER, SELFPAY ==
--- NOTE | 2023-12-22 10:04 | MHC.OFFVISWM ---
VS Expanded 12/22/23 10:13 BP 133/77 Blood Pressure Location Rt brachial Blood Pressure Position Sitting Pulse 73 Pulse Source Pulse Oximeter Temp 97.5 F Temperature Source Temporal Artery Scan Pulse Oximetry 95 Oxygen Delivery Method Room Air Height 4 ft 6 in Weight 149 lb 9.6 oz BMI 36.1 Body Fat % 43.8 Body Fat Mass 65.4 Fat Free Mass 84.0 Visceral Fat Rating 12.0 Body Water % 39.8 Body Water Mass 59.6 Muscle Mass/Score 79.8 Basal Metabolic Rate/Score 1,198 Intake Visit Reasons: (OV) PO LSG 12/17/23 Assembler Fitter Required: Yes Assembler Fitter Name: office cmi Allergies atorvastatin Adverse Reaction (Unknown, Verified 12/22/23 10:15) dizziness,blurry vision Medication List - Last Reconciled 12/22/23 by DALE Dave ondansetron 4 mg PO Q12H sucralfate 10 mL PO BID [walker with seat and wheels walker with seat and wheels please] HPI Comments Details: 53-year-old female returns to the office today in follow-up. She is 5 days status post sleeve gastrectomy performed on 12/17/2023. She does not like the flavor of the celebrate 4 in 1 shakes although is doing 2 with 1 scoop each and 40 oz of fluid total per day. She has not yet moved her bowels. [facility] Medical History Physical exam Screen for colon cancer Pain of both elbows Abdominal lump UTI (urinary tract infection) Right elbow pain Right shoulder pain Screening for hypothyroidism Right flank pain Left knee pain Right knee pain Eye exam, routine Potential exposure to STD Encounter for annual routine gynecological examination Right knee pain Screening due Morbid obesity Anxiety Sleep apnea Hyperkalemia History of kidney stones Pap test, as part of routine gynecological examination Kidney stones Lower back pain Pure hypercholesterolemia Surgical History History of bladder repair surgery History of ureterostomy History of extraction of renal calculus History of endometrial ablation History of section History of tubal ligation Family History Father Liver cancer Mother CVD (cardiovascular disease) Hypertension Social History Household Members: Family Housing: Apartment Are you a primary medical care administrator to a significant other at home: Yes (mother, aunt will assist post-op) Do you presently have visiting nurse or other home services: No Alcohol intake: never Patient Tobacco Use Status: Never used Tobacco e-Cigarette/Vaping Use: Never Used Second Hand Smoke Exposure: No service: No Current occupational status: employed Current occupational exposures/hazards: No Cognitive needs: No Hearing needs: No Vision needs: Yes Physical Exam Vital Signs: Last Vital Signs Temp 97.5 F 12/22/23 10:13 Pulse 73 12/22/23 10:13 BP 133/77 12/22/23 10:13 Pulse Ox 95 12/22/23 10:13 Oxygen Delivery Method Room Air 12/22/23 10:13 BMI result Body Mass Index 36.1 GI Inspection: Yes incision (Clean, dry, intact.) Assessment & Plan Assessment & Plan (1) S/P laparoscopic sleeve gastrectomy: Code(s): Z98.84 - Bariatric surgery status Category: Surgical Plan: POD 5 s/p LSG on 12/17/[address] Renner Weight loss prior to surgery was 34.6 pounds or 18.4 % TBWL. Original weight on 07/07/2023 was 187.6 pounds and op weight was 153 pounds. Be sure to text Dr Renner exactly 1 week after surgery your weight from your home scale so he can adjust your meal plan. Continue meal plan until f/u perlita Grewal in 2 weeks May shower, no submersion in bath for another week Continue abdominal binder with activity and exercise for the next 2 weeks. Exercise prior to surgery was treadmill, may resume No abdominal exercises for 6 weeks post operatively Will be emailed link to post op video for review Reminded of the pace of drinking, 2 mL per minute, 1 oz/15 min. Medications: New docusate sodium (Colace) 100 mg PO DAILY 90 days 90 caps 0RF
[2023-12-22 10:13] VITALS: BP 133/77; PULSE 73; TEMP 36.4; O2SAT 95; BMI 36.1
== END 2023-12-22 10:42 | disposition home or self-care (01) ==
PROVIDERS: PCP Internal Medicine; Visit Provider Physician Assistant Surgical
DX: Z98.84 Bariatric surgery status (principal)
CPT/HCPCS: 99024

== ENCOUNTER → 2023-12-22 09:57 | Outpatient (BNVA) | payer OTHER, SELFPAY | PROVIDERS: PCP Internal Medicine; Visit Provider Physician Assistant Surgical | DX: Z48.815 Encounter for surgical aftercare following surgery on the digestive system (principal); Z98.84 Bariatric surgery status | CPT/HCPCS: 99212 ==

== ENCOUNTER 2024-01-04 11:58 | Outpatient (AMB) | payer OTHER, SELFPAY ==
--- NOTE | 2024-01-04 12:03 | MHC.OFFVISWM ---
VS Expanded 01/04/24 12:08 BP 127/71 Blood Pressure Location Rt brachial Blood Pressure Position Sitting Pulse 89 Pulse Source Pulse Oximeter Temp 96.9 F Temperature Source Tympanic Pulse Oximetry 99 Oxygen Delivery Method Room Air Height 4 ft 6 in Weight 141 lb 12.8 oz BMI 34.2 Body Fat % 42.0 Body Fat Mass 59.6 Fat Free Mass 82.2 Visceral Fat Rating 11.0 Body Water % 41.1 Body Water Mass 58.2 Muscle Mass/Score 78.0 Basal Metabolic Rate/Score 1,168 Intake Visit Reasons: (OV) PO LSG 12/17/23 Allergies atorvastatin Adverse Reaction (Unknown, Verified 12/22/23 10:15) dizziness,blurry vision HPI Comments Details: This?a?53?yo female who is s/p LSG without hiatal hernia repair on?12/17/2023. Presents for 3 week post op visit. Weight today is 141.8 pounds, with a BMI of 34.2. There has been a 45.8 pound weight loss,(initial weight 187.6 pounds) since starting the program on 07/07/2023 reflecting a 24.4 % total body weight loss and a weight loss of 11.2 pounds since surgery (operative weight 153 pounds) reflecting a 7.3 % TBWL since surgery. No complaints of nausea, emesis, abdominal pain or reflux. Reports infrequent but normal bowel movements every [] days and uses stool softeners regularly. She can not tolerate the celebrate 4 in 1, she also does not like the celebrate rebuild, willing to try Orgain and celebrate protein water Drinking 40 oz of water daily [facility] Medical History Physical exam Screen for colon cancer Pain of both elbows Abdominal lump UTI (urinary tract infection) Right elbow pain Right shoulder pain Screening for hypothyroidism Right flank pain Left knee pain Right knee pain Eye exam, routine Potential exposure to STD Encounter for annual routine gynecological examination Right knee pain Screening due Morbid obesity Anxiety Sleep apnea Hyperkalemia History of kidney stones Pap test, as part of routine gynecological examination Kidney stones Lower back pain Pure hypercholesterolemia Surgical History History of bladder repair surgery History of ureterostomy History of extraction of renal calculus History of endometrial ablation History of section History of tubal ligation Family History Father Liver cancer Mother CVD (cardiovascular disease) Hypertension Social History Household Members: Family Housing: Apartment Are you a primary animal care provider to a significant other at home: Yes (mother, aunt will assist post-op) Do you presently have visiting nurse or other home services: No Alcohol intake: never Patient Tobacco Use Status: Never used Tobacco e-Cigarette/Vaping Use: Never Used Second Hand Smoke Exposure: No service: No Current occupational status: employed Current occupational exposures/hazards: No Cognitive needs: No Hearing needs: No Vision needs: Yes Physical Exam Vital Signs: Last Vital Signs Temp 96.9 F 01/04/24 12:08 Pulse 89 01/04/24 12:08 BP 127/71 01/04/24 12:08 Pulse Ox 99 01/04/24 12:08 Oxygen Delivery Method Room Air 01/04/24 12:08 BMI result Body Mass Index 34.2 Const General: healthy appearing and no acute distress Resp Effort & Inspection: normal respiratory effort Auscultation: clear to auscultation bilaterally Cardio Rate: regular rate Rhythm: regular rhythm GI Auscultation: normal bowel sounds Extrem General: Yes normal to inspection Assessment & Plan Assessment & Plan (1) S/P laparoscopic sleeve gastrectomy: Code(s): Z98.84 - Bariatric surgery status Category: Surgical Plan: Change meal plan: Orgain 1 scoop in 8 oz of almond milk, x3 over 2 hours each Celebrate protein water x1 over 3 hours Additional 20 oz of fluids She continues to walk outside daily Return to the office upon her return from [place] in 3 weeks
[2024-01-04 12:08] VITALS: BP 127/71; PULSE 89; TEMP 36.1; O2SAT 99; BMI 34.2
== END 2024-01-04 12:36 | disposition home or self-care (01) ==
PROVIDERS: PCP Internal Medicine; Visit Provider Physician Assistant Surgical
DX: Z98.84 Bariatric surgery status (principal)
CPT/HCPCS: 99024

== ENCOUNTER → 2024-01-04 11:58 | Outpatient (BNVA) | payer OTHER, SELFPAY | PROVIDERS: PCP Internal Medicine; Visit Provider Physician Assistant Surgical | DX: Z48.815 Encounter for surgical aftercare following surgery on the digestive system (principal); Z98.84 Bariatric surgery status | CPT/HCPCS: 99212 ==

== ENCOUNTER 2024-01-06 11:03 | Emergency (ER) | payer OTHER, SELFPAY ==
[2024-01-06 11:50] VITALS: BP 105/55; PULSE 60; RESP 16; TEMP 37; O2SAT 99; BMI 36.3
--- NOTE | 2024-01-06 11:52 | ED.GENADULT ---
HPI - General Adult General Chief complaint: Recheck/Abnormal Lab/Rx Stated complaint: Sent by [place] for labs? Time Seen by Provider: 01/06/24 19:35 Source: patient Mode of arrival: ambulatory Limitations: language barrier (Polish-speaking diplomatic interpreter/translator utilized) History of Present Illness HPI narrative: Patient is a 53-year-old female who presents emergency department for evaluation. She was advised by her bariatric surgeon's office to come to the emergency department to have labs obtained. She reports that when getting out of bed this morning upon standing she felt dizzy described as feeling off balance. This lasted a few seconds before self-resolving. She has had no further episodes of dizziness throughout today. She reports having gastric sleeve surgery on 12/17/2023, at this time she reports she is still in the liquid phase of her diet. She has had complications recently with being able to take her protein shakes due to nausea, since yesterday she has been using a liquid protein in addition to water and Gatorade 0. Currently she denies headache, vision changes dizziness, lightheadedness, near-syncope, neck pain, chest pain, shortness of breath, difficulty breathing, numbness or tingling of her extremities. She denies any recent falls, or head injuries. Related Data Previous Rx's ?Medication ?Instructions ?Recorded walker with seat and wheels #1 ea 12/02/22 ondansetron 4 mg disintegrating 4 mg PO Q12H nausea and vomiting 12/04/23 tablet #20 tabs sucralfate 100 mg/mL oral 10 ml PO BID #600 mL 12/04/23 suspension docusate sodium 100 mg capsule 100 mg PO DAILY 90 days #90 caps 12/22/23 (Colace) Allergies Allergy/AdvReac Type Severity Reaction Status Date / Time atorvastatin AdvReac Unknown dizziness,blurry Verified 01/06/24 11:51 vision Review of Systems Review of Systems: Yes all other systems are reviewed and are negative PMFSH Past Medical History Attestation statement: The following information was validated with the patient. Source: old records reviewed Medical History Physical exam Screen for colon cancer Pain of both elbows Abdominal lump UTI (urinary tract infection) Right elbow pain Right shoulder pain Screening for hypothyroidism Right flank pain Left knee pain Right knee pain Eye exam, routine Potential exposure to STD Encounter for annual routine gynecological examination Right knee pain Screening due Morbid obesity Anxiety Sleep apnea Hyperkalemia History of kidney stones Pap test, as part of routine gynecological examination Kidney stones Lower back pain Pure hypercholesterolemia Surgical History History of bladder repair surgery History of ureterostomy History of extraction of renal calculus History of endometrial ablation History of section History of tubal ligation Family History Family History Father Liver cancer Mother CVD (cardiovascular disease) Hypertension Social History Social History Household Members: Family Housing: Apartment Are you a primary multi care technician to a significant other at home: Yes (mother, aunt will assist post-op) Do you presently have visiting nurse or other home services: No Alcohol intake: never Patient Tobacco Use Status: Never used Tobacco e-Cigarette/Vaping Use: Never Used Second Hand Smoke Exposure: No Advance Directives: No Advance Directives Information Provided: No service: No Current occupational status: employed Current occupational exposures/hazards: No Cognitive needs: No Hearing needs: No Vision needs: Yes Physical Exam ED Vital Signs: Vital Signs - 24 hr 01/06/24 11:50 01/06/24 20:07 01/06/24 20:08 Temperature 98.6 F Pulse Rate 60 48 L 58 Respiratory Rate 16 Blood Pressure 105/55 L 140/68 H 147/76 H Pulse Oximetry 99 Oxygen Delivery Method Room Air 01/06/24 20:08 01/06/24 20:09 Temperature 98.2 F Pulse Rate 62 55 Respiratory Rate 16 Blood Pressure 142/84 H 128/59 L Pulse Oximetry 100 Oxygen Delivery Method Room Air BMI result Body Mass Index 36.3 Appearance: Alert.?Oriented to person, place and time. No acute distress.?Normal affect. Eyes: Pupils equal, round and reactive to light.? ENT: Pharynx normal.?? Neck: Normal inspection.? Neck supple.?? CVS: Heart sounds normal. Normal heart rate and rhythm.? Pulses normal.?? Respiratory: No respiratory distress.? Lung sounds clear to auscultation bilaterally?? Abdomen: Soft and non-tender. Normoactive bowel sounds. No pulsatile mass.?? Skin: Skin warm and dry.? Normal skin color.? Normal skin turgor.?? Extremities: No lower extremity edema.? No calf ttp? Neuro: Moves all extremities spontaneously. Sensation intact bilaterally. CN II-XII intact. No focal neuro deficits. [id number] test negative. Ambulates with normal steady gait. NIH Stroke Scale Time: 20:30 Level of Consciousness: Alert Level of Consciousness Questions: Answers both questions correctly Level of Consciousness Commands: Performs both tasks correctly Best Gaze: Normal Visual: No visual loss Facial Palsy: Normal Motor Arm (Right): No drift Motor Arm (Left): No drift Motor Leg (Right): No drift Motor Leg (Left): No drift Limb Ataxia: Absent Sensory: Normal Best Language: No aphasia Dysarthia: Normal Extinction and Inattention: No abnormality Score: 0 Course Course Course Narrative: This is a Rapid Medical Examination (RME) performed by Katya Cramer PA-C in triage. Full HPI, ROS, assessment and treatment plan per primary provider in the Main ED. 53 yo female 3 wks s/p gastric sleeve surgery w/ erin here for eval of dizziness. admits to room spinning sensation only present upon waking this morning. not worse with head movements. not exacerbated wtih position changes. Denies N/V. Called stacie who advised to come to the ED for labs to check for anemia and electrolyte abnormality. abd soft, ND/NT. Plan: labs, ua, +/- ortho static vitals Medical Decision Making Medical Decision Making MDM Narrative: Patient is a 53-year-old female who presents to the emergency department today for evaluation of a single episode of positional dizziness as per HPI. Has had no further episodes of this. Overall she is well-appearing, nontoxic, afebrile. She has no focal neurological deficits upon examination. Clinically I have a low suspicion for CVA, cerebellar stroke, would defer CT or MRI of the brain at this time. Serum labs were obtained; she has no leukocytosis, no anemia, no thrombocytopenia, no electrolyte derangement, no ALLEN, normal magnesium, LFTs within normal range. Urinalysis with trace leukocyte esterase and urine WBCs, 1+ urine bacteria seen however squamous epithelial cells are also present and she is without symptoms I suspect this is likely urogenital contamination. Her viral panel is negative. Orthostatic vital signs are negative. High sensitive troponin is within normal range, EKG reveals a sinus bradycardia with short OK interval, ventricular rate of 52, not consistent with STEMI, QTC 390. Patient was advised to change position slowly, be sure that she is compliant with her diet as instructed and follow up closely with her doctors. Discussed strict return precautions. All questions answered. Stable for discharge. Differential Diagnosis Differential Diagnoses: The differential diagnosis associated with the presentation includes (As noted above) Admission/Observation Consideration of admission/observation: Escalation of care including admission/observation considered (See narrative above) Lab Data MDM Lab Attestation statement: I reviewed the patient's lab results. (See narrative above) 01/06/24 12:14 01/06/24 12:14 Labs: Lab Results 01/06/24 01/06/24 01/06/24 Range/Units 12:14 15:31 20:21 WBC 6.7 (4.8-10.8) X10*3/uL RBC 4.84 (4.20-5.50) X10*6/uL Hgb 13.4 (12.0-16.0) g/dl Hct 40.3 (37.0-47.0) % MCV 83.3 (80.0-98.0) fL MCH 27.7 (27.0-33.0) pg MCHC 33.3 (31.0-35.0) g/dl RDW 13.2 (11.0-16.0) % Plt Count 213 (160-400) X10*3/uL MPV 10.4 (9.4-12.3) fL Immature Gran % (Auto) 0.1 (0.0-0.4) % Neut % (Auto) 57.2 (45-73) % Lymph % (Auto) 30.9 (20-40) % [place] % (Auto) 6.6 (2-11) % Eos % (Auto) 4.0 (0-4) % Baso % (Auto) 1.2 (0-2) % Lymph # (Auto) 2.1 (1.2-4.9) X10*3/uL [place] # (Auto) 0.4 (0.1-1.2) X10*3/uL Eos # (Auto) 0.3 (0.0-0.4) X10*3/uL Baso # (Auto) 0.1 (0.0-0.2) X10*3/uL Abs Immat Gran (auto) 0.01 (0.00-0.03) X10*3/uL Absolute Neuts (auto) 3.8 (2.0-8.3) x10*3/uL Absolute Nucleated RBC 0.000 (0.0-0.012) X10*3/uL Nucleated RBC % (auto) 0.0 (0.0-0.2) /100WBC Sodium 144 (135-145) mmol/L Potassium 4.0 (3.3-5.1) mmol/L Chloride 104 (96-108) mmol/L Carbon Dioxide 23 (22-29) mmol/L Anion Gap 21 H (12-20) BUN 13 (9-16) mg/dL Creatinine 0.86 (0.5-1.4) mg/dL Estim Creat Clear Calc 52.4 Estimated GFR > 60 Random Glucose 78 (60-115) mg/dL Calcium 9.3 (8.4-10.2) mg/dL Magnesium 1.9 (1.6-2.6) mg/dL Total Bilirubin 0.4 (0.0-1.0) mg/dL AST 21 (5-31) U/L ALT 14 (0-31) U/L Alkaline Phosphatase 79 (39-117) U/L Troponin I High Sens 3.4 (<3.5-17.0) ng/L Total Protein 6.7 (6.5-8.0) g/dL Albumin 3.7 (3.5-5.0) g/dL Lipase 49 (8-78) U/L Urine Color Dark Yellow Urine Appearance Cloudy Urine pH 5.5 (5.0-9.0) Ur Specific [place] >= 1.030 H (1.005-1.025) Urine Protein 30 (1+) H (Neg-Trace) mg/dL Urine Glucose (UA) Negative (Negative) mg/dL Urine Ketones 80 (Negative) mg/dL Urine Blood Negative (Negative) Urine Nitrite Negative (Negative) Ur Leukocyte Esterase Trace H (Negative) Urine RBC 0-2 (0-2) /HPF Urine WBC 6-10 H (0-5) /HPF Ur Squamous Epith Cells 11-20 (0-2) /HPF Calcium Oxalate Crystal Present Urine Bacteria 1+ (None Seen) Hyaline Casts 3-5 (0-2) /LPF Influenza Type A (PCR) NEGATIVE (Negative) Influenza Type B (PCR) NEGATIVE (Negative) RSV RNA Qual (PCR) NEGATIVE (Negative) SARS-CoV-2 RNA (RT-PCR) NEGATIVE (Negative) Independent Interpretation I performed an independent interpretation of an: EKG (See narrative above) External Record Review External record reviewed: Outpatient record Discharge Plan Discharge Clinical Impression: Dizziness Patient Disposition: Home, Self-Care Instructions: Dizziness (ED) Additional Instructions: As discussed, your testing today was very reassuring. You are not anemic, there was no abnormalities in your electrolytes. Your kidney function is normal. It is possible that the dizziness may have been brought on from changing position too quickly especially in the setting of decreased oral intake. Please change positions slowly. Follow-up closely with your doctors. You may return back to emergency department any new or worsening symptoms or concerns. Prescriptions: No Action (DME) walker with seat and wheels See Rx Instructions .Route .MEDSUPPLY Qty: 1 0RF Rx Instructions: walker with seat and wheels please docusate sodium [Colace] 100 mg capsule 100 mg PO DAILY 90 Days Qty: 90 0RF sucralfate 100 mg/mL suspension 10 ml PO BID Qty: 600 2RF Patient Comments: postop meds ondansetron 4 mg tablet,disintegrating 4 mg PO Q12H Qty: 20 0RF Patient Comments: postop meds Rx Instructions: Only take one every 12 hours as needed if you have nausea Referrals: Radha Rachel MD [Primary Care Provider] - Print Language: Polish
[2024-01-06 12:17] LABS: MANUAL DIFF FLAG NO
[2024-01-06 12:20] LABS: Basophils Absolute Auto 0.1 X10*3/uL (0.0-0.2); Basophils Percent Auto 1.2 % (0-2); Eosinophils Absolute Auto 0.3 X10*3/uL (0.0-0.4); Hematocrit 40.3 % (37.0-47.0); Hemoglobin 13.4 g/dl (12.0-16.0); Imm Gran Abs Auto 0.01 X10*3/uL (0.00-0.03); Imm Gran Pct Auto 0.1 % (0.0-0.4); Lymphocytes Absolute Auto 2.1 X10*3/uL (1.2-4.9); Lymphocytes Percent Auto 30.9 % (20-40); Mean Corpuscular HGB Conc 33.3 g/dl (31.0-35.0); Mean Corpuscular Hemoglobin 27.7 pg (27.0-33.0); Mean Corpuscular Volume 83.3 fL (80.0-98.0); Mean Platelet Volume 10.4 fL (9.4-12.3); Monocytes Absolute Auto 0.4 X10*3/uL (0.1-1.2); Monocytes Percent Auto 6.6 % (2-11); Neutrophils Absolute Auto 3.8 x10*3/uL (2.0-8.3); Neutrophils Percent Auto 57.2 % (45-73); Platelet Count 213 X10*3/uL (160-400); Red Blood Count 4.84 X10*6/uL (4.20-5.50); Red Cell Distribution Width 13.2 % (11.0-16.0); White Blood Count 6.7 X10*3/uL (4.8-10.8)
[2024-01-06 12:41] LABS: Alanine Aminotransferase 14 U/L (0-31); Albumin Level 3.7 g/dL (3.5-5.0); Alkaline Phosphatase 79 U/L (39-117); Anion Gap 21 (12-20); Aspartate Amino Transferase 21 U/L (5-31); Bilirubin Total 0.4 mg/dL (0.0-1.0); Blood Urea Nitrogen 13 mg/dL (9-16); Calcium 9.3 mg/dL (8.4-10.2); Carbon Dioxide 23 mmol/L (22-29); Chloride 104 mmol/L (96-108); Creatinine Clr Calc Pharmacy 52.4; Estimated Glomerular Filt Rate > 60; Glucose Random 78 mg/dL (60-115); Lipase 49 U/L (8-78); Magnesium 1.9 mg/dL (1.6-2.6); Sodium 144 mmol/L (135-145); Total Protein 6.7 g/dL (6.5-8.0)
[2024-01-06 12:58] LABS: Influenza A PCR NEGATIVE (Negative); Influenza B PCR NEGATIVE (Negative); Resp Syncy Virus RNA Qual PCR NEGATIVE (Negative); SARS COV2 PCR INHOUSE NEGATIVE (Negative)
[2024-01-06 15:38] LABS: Appearance Urine Cloudy; Color Urine Dark Yellow; Glucose Urine UA Negative (Negative); Leukocyte Esterase Urine Trace (Negative); Nitrite Urine Negative (Negative); PH 5.5 (5.0-9.0); Specific Gravity - Urine >= 1.030 (1.005-1.025); UMIC TRIGGER UACC YES; Urine Blood Negative (Negative); Urine Ketones 80 mg/dL (Negative); Urine Protein 30 (1+) mg/dL (Neg-Trace)
[2024-01-06 15:49] LABS: Bacteria Urine 1+ (None Seen); Calcium Oxalate Crystals Urine Present; RBC Urine 0-2 /HPF (0-2); UACC Culture Trigger YES
--- NOTE | 2024-01-06 19:36 | ECG_ITS ---
Test Reason : DIZZINESS Blood Pressure : / mmHG Vent. Rate : 052 BPM Atrial Rate : 052 BPM P-R Int : 100 ms QRS Dur : 074 ms QT Int : 420 ms P-R-T Axes : 034 023 023 degrees QTc Int : 390 ms Sinus bradycardia with short NH Otherwise normal ECG When compared with ECG of 20-JUL-2023 11:17, No significant change was found Referred By: Naa Ken Electronically Signed By:Smith Thomas
[2024-01-06 20:07] VITALS: BP 140/68; PULSE 48
[2024-01-06 20:08] VITALS: BP 142/84; BP 147/76; PULSE 58; PULSE 62
[2024-01-06 20:09] VITALS: BP 128/59; PULSE 55; RESP 16; TEMP 36.8; O2SAT 100
[2024-01-06 20:51] LABS: Troponin-I High Sensitivity 3.4 ng/L (<3.5-17.0)
== END 2024-01-06 22:32 | disposition home or self-care (01) ==
PROVIDERS: Nurse Practitioner Family; Physician Assistant Medical; Emergency Provider Emergency Medicine; PCP Internal Medicine
DX: R42 Dizziness and giddiness (principal); R30.0 Dysuria; R00.1 Bradycardia, unspecified; Z98.84 Bariatric surgery status; Z11.52 Encounter for screening for COVID-19; Z20.822 Contact with and (suspected) exposure to COVID-19
CPT/HCPCS: 0241U; 36415; 80053; 81001; 83690; 83735; 84484; 85025; 87086; 87088; 87147; 87186; 93005; 99283; 99284

== ENCOUNTER → 2024-01-06 19:36 | Outpatient (BNV) | payer OTHER, SELFPAY | PROVIDERS: Emergency Provider Emergency Medicine; PCP Internal Medicine; Visit Provider Internal Medicine Cardiovascular Disease | DX: R00.1 Bradycardia, unspecified (principal) | CPT/HCPCS: 93010 ==

== ENCOUNTER 2024-02-05 10:58 | Outpatient (AMB) | payer OTHER, SELFPAY ==
--- NOTE | 2024-02-05 11:01 | A.OFFVIS_ITS ---
VS Expanded 02/05/24 11:08 BP 122/75 Blood Pressure Location Rt brachial Blood Pressure Position Sitting Pulse 79 Pulse Source Pulse Oximeter Temp 96.9 F Temperature Source Tympanic Pulse Oximetry 99 Oxygen Delivery Method Room Air Height 4 ft 6 in Weight 134 lb 6.4 oz BMI 32.4 Body Fat % 38.4 Body Fat Mass 51.6 Fat Free Mass 82.6 Visceral Fat Rating 10.0 Body Water % 43.7 Body Water Mass 58.6 Muscle Mass/Score 78.4 Basal Metabolic Rate/Score 1,160 Intake Visit Reasons: (OV) PO LSG 12/17/23 Piano Refinisher Required: Yes Piano Refinisher Name: office cmi Allergies atorvastatin Adverse Reaction (Unknown, Verified 02/05/24 11:15) dizziness,blurry vision Medication List - Last Reconciled 02/05/24 by DALE Dave docusate sodium (Colace) 100 mg PO DAILY 90 days sennosides (senna) 17.2 mg (2 x 8.6 mg) PO BEDTIME PRN sucralfate 10 mL PO BID [walker with seat and wheels walker with seat and wheels please] HPI Comments Details: This?a?53?yo female who is s/p LSG without hiatal hernia repair on?12/17/2023. Presents for 2 month post op visit. Weight today is 134.4 pounds, with a BMI of 33.6. There has been a 53.2 pound weight loss,(initial weight 187.6 pounds) since starting the program on 07/07/2023 reflecting a 28.3 % total body weight loss and a weight loss of 18.6 pounds since surgery (operative weight 153 pounds) reflecting a 12.1 % TBWL since surgery. No complaints of nausea, emesis, abdominal pain or reflux. Reports infrequent but normal bowel movements every [] days and uses stool softeners regularly. She presented to the emergency room on 01/06/2024 with 1 episode of lightheadedness. She was found to have urinary tract infection and prescribed Macrobid for 7 days. This has completed and she has had no further episodes of urinary symptoms or lightheadedness. She did not like the [place] and she went back to celebrate water. She went to [place] and did not follow a specific meal plan. She feels great Meal plan: 1 nigerien yogurt 1-1 and 1/2 Protein water 20-30 gm pro Drinking 48 oz of water daily Exercise plan: walking outside while away on vacation for the last 3 weeks but will resume treadmill daily [facility] Medical History Physical exam Screen for colon cancer Pain of both elbows Abdominal lump UTI (urinary tract infection) Right elbow pain Right shoulder pain Screening for hypothyroidism Right flank pain Left knee pain Right knee pain Eye exam, routine Potential exposure to STD Encounter for annual routine gynecological examination Right knee pain Screening due Morbid obesity Anxiety Sleep apnea Hyperkalemia History of kidney stones Pap test, as part of routine gynecological examination Kidney stones Lower back pain Pure hypercholesterolemia Surgical History History of bladder repair surgery History of ureterostomy History of extraction of renal calculus History of endometrial ablation History of section History of tubal ligation Family History Father Liver cancer Mother CVD (cardiovascular disease) Hypertension Social History Household Members: Family Housing: Apartment Are you a primary personal care aide to a significant other at home: Yes (mother, aunt will assist post-op) Do you presently have visiting nurse or other home services: No Alcohol intake: never Patient Tobacco Use Status: Never used Tobacco e-Cigarette/Vaping Use: Never Used Second Hand Smoke Exposure: No service: No Current occupational status: employed Current occupational exposures/hazards: No Cognitive needs: No Hearing needs: No Vision needs: Yes Physical Exam Vital Signs: Last Vital Signs Temp 96.9 F 02/05/24 11:08 Pulse 79 02/05/24 11:08 BP 122/75 02/05/24 11:08 Pulse Ox 99 02/05/24 11:08 Oxygen Delivery Method Room Air 02/05/24 11:08 BMI result Body Mass Index 32.4 Const General: healthy appearing and no acute distress Resp Effort & Inspection: normal respiratory effort Auscultation: clear to auscultation bilaterally Cardio Rate: regular rate Rhythm: regular rhythm GI Auscultation: normal bowel sounds Extrem General: Yes normal to inspection Assessment & Plan Assessment & Plan (1) Obesity: Code(s): E66.9 - Obesity, unspecified Category: Medical Plan: Change meal plan per patient request to include food.: One celebrate protein water One Sami yogurt Four forks protein and 2 forks cooked vegetables Increase exercise to now returned to the treadmill daily for 300 calories burned per day. Return to the office in 6 weeks encouraged to text weekly with her weight and if any questions or concerns
[2024-02-05 11:08] VITALS: BP 122/75; PULSE 79; TEMP 36.1; O2SAT 99; BMI 32.4
== END 2024-02-05 11:45 | disposition home or self-care (01) ==
PROVIDERS: PCP Internal Medicine; Visit Provider Physician Assistant Surgical
DX: E66.9 Obesity, unspecified (principal)
CPT/HCPCS: 99024

== ENCOUNTER → 2024-02-05 10:58 | Outpatient (BNVA) | payer OTHER, SELFPAY | PROVIDERS: PCP Internal Medicine; Visit Provider Physician Assistant Surgical | DX: E66.9 Obesity, unspecified (principal); Z68.32 Body mass index [BMI] 32.0-32.9, adult | CPT/HCPCS: 99212 ==

== ENCOUNTER 2024-02-08 10:59 | Outpatient (REF) | payer OTHER, SELFPAY ==
[2024-02-08 11:17] LABS: MANUAL DIFF FLAG NO
[2024-02-08 11:57] LABS: Basophils Percent Auto 0.7 % (0-2); Eosinophils Absolute Auto 0.2 X10*3/uL (0.0-0.4); Eosinophils Percent Auto 2.8 % (0-4); Hematocrit 38.5 % (37.0-47.0); Hemoglobin 12.7 g/dl (12.0-16.0); Imm Gran Abs Auto 0.01 X10*3/uL (0.00-0.03); Imm Gran Pct Auto 0.2 % (0.0-0.4); Lymphocytes Absolute Auto 2.2 X10*3/uL (1.2-4.9); Mean Corpuscular Hemoglobin 27.9 pg (27.0-33.0); Mean Corpuscular Volume 84.6 fL (80.0-98.0); Mean Platelet Volume 10.9 fL (9.4-12.3); Monocytes Absolute Auto 0.5 X10*3/uL (0.1-1.2); Monocytes Percent Auto 7.8 % (2-11); Neutrophils Absolute Auto 3.2 x10*3/uL (2.0-8.3); Neutrophils Percent Auto 52.5 % (45-73); Platelet Count 217 X10*3/uL (160-400); Red Blood Count 4.55 X10*6/uL (4.20-5.50); Red Cell Distribution Width 15.2 % (11.0-16.0)
[2024-02-08 12:19] LABS: Appearance Urine Hazy; Color Urine Yellow; Glucose Urine UA Negative (Negative); Leukocyte Esterase Urine Trace (Negative); Nitrite Urine Positive (Negative); Specific Gravity - Urine >= 1.030 (1.005-1.025); UMIC TRIGGER UACC YES; Urine Blood Trace (Negative); Urine Ketones Trace mg/dL (Negative); Urine Protein Trace mg/dL (Neg-Trace)
[2024-02-08 12:48] LABS: Alanine Aminotransferase 19 U/L (0-31); Albumin Level 3.6 g/dL (3.5-5.0); Alkaline Phosphatase 70 U/L (39-117); Anion Gap 11 (12-20); Aspartate Amino Transferase 21 U/L (5-31); Bilirubin Total 0.5 mg/dL (0.0-1.0); Blood Urea Nitrogen 10 mg/dL (9-16); Calcium 9.1 mg/dL (8.4-10.2); Carbon Dioxide 28 mmol/L (22-29); Chloride 108 mmol/L (96-108); Cholesterol 222 mg/dL (<200); Estimated Glomerular Filt Rate > 60; Glucose Fasting 84 mg/dL (60-99); HDL Cholesterol 39 mg/dL (>40); LDL Cholesterol Calculated 160 mg/dL (<100); Potassium 3.7 mmol/L (3.3-5.1); Sodium 143 mmol/L (135-145); Total Protein 6.2 g/dL (6.5-8.0); Triglycerides 119 mg/dL (<150)
[2024-02-08 13:05] LABS: Thyroid Stimulating Hormone 1.15 uIU/mL (0.32-4.0); Vitamin D 25-OH Total 67.9 ng/mL (>30)
[2024-02-08 13:12] LABS: Bacteria Urine 4+ (None Seen); Hyaline Casts Urine 0-2 /LPF (0-2); RBC Urine 0-2 /HPF (0-2); UACC Culture Trigger YES; WBC Urine 0-5 /HPF (0-5)
== END 2024-02-08 11:00 | disposition home or self-care (01) ==
LOC: HO.LAB 10:59
PROVIDERS: PCP Internal Medicine; Visit Provider Internal Medicine
DX: E66.9 Obesity, unspecified (principal); E78.00 Pure hypercholesterolemia, unspecified; E78.5 Hyperlipidemia, unspecified; R30.0 Dysuria; E55.9 Vitamin D deficiency, unspecified; Z68.37 Body mass index [BMI] 37.0-37.9, adult
CPT/HCPCS: 36415; 80053; 80061; 81001; 81003; 82306; 84443; 85025; 87086; 87088; 87186

== ENCOUNTER 2024-03-30 13:11 | Outpatient (AMB) | payer OTHER, SELFPAY ==
--- NOTE | 2024-03-30 12:16 | A.OFFVIS_ITS ---
VS Expanded 03/30/24 12:17 Height 4 ft 6 in Weight 124 lb 8 oz BMI 30.0 Body Fat % 40.2 Intake Visit Reasons: (TV) PO LSG 12/17/23 Transplant Case Manager Required: Yes Transplant Case Manager Name: office cmi Allergies atorvastatin Adverse Reaction (Unknown, Verified 02/05/24 11:15) dizziness,blurry vision Medication List - Last Reconciled 03/30/24 by DALE Dave cefuroxime axetil 500 mg PO BID 5 days docusate sodium (Colace) 100 mg PO DAILY 90 days nitrofurantoin macrocrystal 100 mg PO BID 7 days sennosides (senna) 17.2 mg (2 x 8.6 mg) PO BEDTIME PRN 90 days sucralfate 10 mL PO BID [walker with seat and wheels walker with seat and wheels please] HPI Comments Details: This?a?53?yo female who is s/p LSG without hiatal hernia repair on?12/17/2023. Presents for 3 month post op visit. Weight today is 124.8 pounds, with a BMI of 30. There has been a 62.8 pound weight loss,(initial weight 187.6 pounds) since starting the program on 07/07/2023 reflecting a 33.4 % total body weight loss and a weight loss of 28.2 pounds since surgery (operative weight 153 pounds) reflecting a 18.4 % TBWL since surgery. No complaints of nausea, emesis, abdominal pain or reflux. Reports infrequent but normal bowel movements every 2- 3 days and uses stool softeners regularly. She is going to [place] Meal plan: two Nigerian yogurt - 20 gm Four forks protein and 2 forks cooked vegetables Drinking 48 oz of water daily Exercise plan: walking outside while away on vacation for the last 3 weeks but will resume treadmill daily [facility] Medical History Physical exam Screen for colon cancer Pain of both elbows Abdominal lump UTI (urinary tract infection) Right elbow pain Right shoulder pain Screening for hypothyroidism Right flank pain Left knee pain Right knee pain Eye exam, routine Potential exposure to STD Encounter for annual routine gynecological examination Right knee pain Screening due Morbid obesity Anxiety Sleep apnea Hyperkalemia History of kidney stones Pap test, as part of routine gynecological examination Kidney stones Lower back pain Pure hypercholesterolemia Surgical History History of bladder repair surgery History of ureterostomy History of extraction of renal calculus History of endometrial ablation History of section History of tubal ligation Family History Father Liver cancer Mother CVD (cardiovascular disease) Hypertension Social History Household Members: Family Housing: Apartment Are you a primary residential care facility manager to a significant other at home: Yes (mother, aunt will assist post-op) Do you presently have visiting nurse or other home services: No Alcohol intake: never Patient Tobacco Use Status: Never used Tobacco e-Cigarette/Vaping Use: Never Used Second Hand Smoke Exposure: No service: No Current occupational status: employed Current occupational exposures/hazards: No Cognitive needs: No Hearing needs: No Vision needs: Yes Telehealth Telehealth Telehealth Platform: Telephone Location of provider rendering services: practice address Location of patient: address on file Patient Identification confirmed using: Name, : Yes Telehealth method: voice only Patient verbally consented to treatment: Yes Patient verbally consented to billing insurance company: Yes Patient informed of any privacy concerns related to visit: Yes Minutes spent on Phone/Video with Pt.: 15 Assessment & Plan Assessment & Plan (1) S/P laparoscopic sleeve gastrectomy: Code(s): Z98.84 - Bariatric surgery status Category: Surgical Plan: Overall doing well. Unfortunately she has had some family trauma [place] She will continue her current meal plan, exercise when she is able, and return to the office when she comes back to [place] in May. She will call or text with any questions or concerns.
== END 2024-03-30 13:25 | disposition home or self-care (01) ==
LOC: HO.HBS 13:11
PROVIDERS: PCP Internal Medicine; Visit Provider Physician Assistant Surgical
DX: E66.9 Obesity, unspecified (principal); Z68.30 Body mass index [BMI] 30.0-30.9, adult; Z90.3 Acquired absence of stomach [part of]; Z98.84 Bariatric surgery status
CPT/HCPCS: 99213

== ENCOUNTER → 2024-03-30 13:11 | Outpatient (BNVA) | payer OTHER, SELFPAY | PROVIDERS: PCP Internal Medicine; Visit Provider Physician Assistant Surgical ==

== ENCOUNTER 2024-06-08 11:14 | Outpatient (AMB) | payer OTHER, SELFPAY ==
--- NOTE | 2024-06-08 11:18 | MHC.NURWM ---
Intake Intake Visit Reasons: (OV) PO LSG 12/17/23 Allergies atorvastatin Adverse Reaction (Unknown, Verified 02/05/24 11:15) dizziness,blurry vision Coding
[2024-06-08 11:27] VITALS: BP 118/67; PULSE 62; TEMP 36.3; O2SAT 99; BMI 29.3
--- NOTE | 2024-06-08 11:28 | MHC.OFFVISWM ---
VS Expanded 06/08/24 11:27 06/08/24 11:29 BP 118/67 Blood Pressure Location Rt brachial Blood Pressure Position Sitting Pulse 62 Pulse Source Pulse Oximeter Temp 97.3 F Temperature Source Temporal Artery Scan Pulse Oximetry 99 Oxygen Delivery Method Room Air Height 4 ft 6 in Weight 121 lb 6.4 oz BMI 29.3 29.3 Body Fat % 30.9 Body Fat Mass 37.4 Fat Free Mass 83.8 Visceral Fat Rating 7.0 Body Water % 48.9 Body Water Mass 59.4 Muscle Mass/Score 79.6 Basal Metabolic Rate/Score 1,148 Intake Visit Reasons: (OV) PO LSG 12/17/23 Business Solutions Architect Required: Yes Business Solutions Architect Services: Business Solutions Architect Present Business Solutions Architect Name: office cmi Allergies atorvastatin Adverse Reaction (Unknown, Verified 06/08/24 11:23) dizziness,blurry vision Medication List - Last Reconciled 06/08/24 by DALE Dave docusate sodium (Colace) 100 mg PO DAILY 90 days sennosides (senna) 17.2 mg (2 x 8.6 mg) PO BEDTIME PRN 90 days [walker with seat and wheels walker with seat and wheels please] HPI Comments Details: This?a?53?yo female who is s/p LSG without hiatal hernia repair on?12/17/2023. Presents for 6 month post op visit. Weight today is 121.4 pounds, with a BMI of 29.3. There has been a 66.2 pound weight loss,(initial weight 187.6 pounds) since starting the program on 07/07/2023 reflecting a 35.2 % total body weight loss and a weight loss of 31.6 pounds since surgery (operative weight 153 pounds) reflecting a 20.6 % TBWL since surgery. No complaints of nausea, emesis, abdominal pain or reflux. Reports infrequent but normal bowel movements every 2-3 days and uses stool softeners regularly. She continues taking bariatric multivitamin daily. Meal plan: two New Zealander yogurt - 20 gm Four forks protein and 2 forks cooked vegetables Drinking 48 oz of water daily Exercise plan: [facility] gym, just got back from [place]. Any post op complications: none RYAN: resolved DM: never HTN: never Hyperlipidemia: improved GERD:?0-5 scale ??0 = no symptoms ??1 = symptoms noticeable but not bothersome 2 =symptoms bothersome but not daily ? 3 = symptoms bothersome and daily 4 = symptoms affect daily activities 5 = symptoms are incapacitating, unable to do daily activities ? How bad is the heartburn: 0 ? Heartburn while lying down: 0 ? Heartburn when standing up: 0 ? Heartburn after meals: 0 ? Does heartburn change your diet: 0 ? Does heartburn wake you up from sleep: 0 ? Do you have difficulty swallowin ? Do you have pain with swallowin ? If you take medicine for your reflux, does this affect your daily life: 0 Satisfaction with present condition - satisfied or not satisfied: very satisfied [facility] Medical History Physical exam Screen for colon cancer Pain of both elbows Abdominal lump UTI (urinary tract infection) Right elbow pain Right shoulder pain Screening for hypothyroidism Right flank pain Left knee pain Right knee pain Eye exam, routine Potential exposure to STD Encounter for annual routine gynecological examination Right knee pain Screening due Morbid obesity Anxiety Sleep apnea Hyperkalemia History of kidney stones Pap test, as part of routine gynecological examination Kidney stones Lower back pain Pure hypercholesterolemia Surgical History History of bladder repair surgery History of ureterostomy History of extraction of renal calculus History of endometrial ablation History of section History of tubal ligation Family History Father Liver cancer Mother CVD (cardiovascular disease) Hypertension Social History Household Members: Family Housing: Apartment Are you a primary home care nurse to a significant other at home: Yes (mother, aunt will assist post-op) Do you presently have visiting nurse or other home services: No Alcohol intake: never Patient Tobacco Use Status: Never used Tobacco e-Cigarette/Vaping Use: Never Used Second Hand Smoke Exposure: No service: No Current occupational status: employed Current occupational exposures/hazards: No Cognitive needs: No Hearing needs: No Vision needs: Yes Physical Exam Vital Signs: Last Vital Signs Temp 97.3 F 06/08/24 11:27 Pulse 62 06/08/24 11:27 BP 118/67 06/08/24 11:27 Pulse Ox 99 06/08/24 11:27 Oxygen Delivery Method Room Air 06/08/24 11:27 BMI result Body Mass Index 29.3 Const General: cooperative and no acute distress Orientation/consciousness: patient oriented x3 Resp Effort & Inspection: normal respiratory effort Auscultation: clear to auscultation bilaterally Cardio Rate: regular rate Rhythm: regular rhythm GI Inspection: Yes normal to inspection and Yes incision (well healed) Palpation (GI): Soft to palpation and no masses Neuro General: patient oriented x3 Assessment & Plan Assessment & Plan (1) S/P laparoscopic sleeve gastrectomy: Code(s): Z98.84 - Bariatric surgery status Category: Surgical Plan: Check six-month postop labs. Encouraged to return to the gym as she has now returned from [place]. Encouraged to go at least 5 days per week, 400 calories per day. Continue current meal plan. Continue to send weight measurements weekly Return to clinic as scheduled. Orders: Orders Hemoglobin A1c Today E78.00 - Pure hypercholesterolemia, unspecified, E78.5 - Hyperlipidemia, unspecified, R79.89 - Other specified abnormal findings of blood chemistry, Z98.84 - Bariatric surgery status IRON PROFILE Today E78.00 - Pure hypercholesterolemia, unspecified, E78.5 - Hyperlipidemia, unspecified, R79.89 - Other specified abnormal findings of blood chemistry, Z98.84 - Bariatric surgery status Vitamin B12 and Folate Today E78.00 - Pure hypercholesterolemia, unspecified, E78.5 - Hyperlipidemia, unspecified, R79.89 - Other specified abnormal findings of blood chemistry, Z98.84 - Bariatric surgery status Zinc Today E78.00 - Pure hypercholesterolemia, unspecified, E78.5 - Hyperlipidemia, unspecified, R79.89 - Other specified abnormal findings of blood chemistry, Z98.84 - Bariatric surgery status TSH reflex Free T4 Today E78.00 - Pure hypercholesterolemia, unspecified, E78.5 - Hyperlipidemia, unspecified, R79.89 - Other specified abnormal findings of blood chemistry, Z98.84 - Bariatric surgery status Ferritin Today E78.00 - Pure hypercholesterolemia, unspecified, E78.5 - Hyperlipidemia, unspecified, R79.89 - Other specified abnormal findings of blood chemistry, Z98.84 - Bariatric surgery status Basic Metabolic Panel Today E78.00 - Pure hypercholesterolemia, unspecified, E78.5 - Hyperlipidemia, unspecified, R79.89 - Other specified abnormal findings of blood chemistry, Z98.84 - Bariatric surgery status Insulin Today E78.00 - Pure hypercholesterolemia, unspecified, E78.5 - Hyperlipidemia, unspecified, R79.89 - Other specified abnormal findings of blood chemistry, Z98.84 - Bariatric surgery status Complete Blood Count Auto Diff Today E78.00 - Pure hypercholesterolemia, unspecified, E78.5 - Hyperlipidemia, unspecified, R79.89 - Other specified abnormal findings of blood chemistry, Z98.84 - Bariatric surgery status Lipid Panel Today E78.00 - Pure hypercholesterolemia, unspecified, E78.5 - Hyperlipidemia, unspecified, R79.89 - Other specified abnormal findings of blood chemistry, Z98.84 - Bariatric surgery status C Reactive Protein Today E78.00 - Pure hypercholesterolemia, unspecified, E78.5 - Hyperlipidemia, unspecified, R79.89 - Other specified abnormal findings of blood chemistry, Z98.84 - Bariatric surgery status Vitamin B1 Today E78.00 - Pure hypercholesterolemia, unspecified, E78.5 - Hyperlipidemia, unspecified, R79.89 - Other specified abnormal findings of blood chemistry, Z98.84 - Bariatric surgery status Vitamin A Today E78.00 - Pure hypercholesterolemia, unspecified, E78.5 - Hyperlipidemia, unspecified, R79.89 - Other specified abnormal findings of blood chemistry, Z98.84 - Bariatric surgery status Vitamin D 25-OH Total Today E78.00 - Pure hypercholesterolemia, unspecified, E78.5 - Hyperlipidemia, unspecified, R79.89 - Other specified abnormal findings of blood chemistry, Z98.84 - Bariatric surgery status US abdomen comp w elastography Today E78.00 - Pure hypercholesterolemia, unspecified, E78.5 - Hyperlipidemia, unspecified, R79.89 - Other specified abnormal findings of blood chemistry, Z98.84 - Bariatric surgery status
[2024-06-08 11:29] VITALS: BMI 29.3
== END 2024-06-08 11:50 | disposition home or self-care (01) ==
PROVIDERS: PCP Internal Medicine; Visit Provider Physician Assistant Surgical
DX: E66.3 Overweight (principal); Z68.29 Body mass index [BMI] 29.0-29.9, adult; Z90.3 Acquired absence of stomach [part of]; Z98.84 Bariatric surgery status
CPT/HCPCS: 99214

== ENCOUNTER → 2024-06-08 11:14 | Outpatient (BNVA) | payer OTHER, SELFPAY | PROVIDERS: PCP Internal Medicine; Visit Provider Physician Assistant Surgical | DX: E66.9 Obesity, unspecified (principal); E78.00 Pure hypercholesterolemia, unspecified; R79.89 Other specified abnormal findings of blood chemistry; Z71.3 Dietary counseling and surveillance; Z98.84 Bariatric surgery status | CPT/HCPCS: 99212 ==

== ENCOUNTER 2024-06-10 10:05 | Outpatient (REF) | payer OTHER, SELFPAY ==
[2024-06-10 10:27] LABS: MANUAL DIFF FLAG NO
[2024-06-10 10:45] LABS: Basophils Percent Auto 0.7 % (0-2); Eosinophils Absolute Auto 0.1 X10*3/uL (0.0-0.4); Hematocrit 38.5 % (37.0-47.0); Hemoglobin 12.9 g/dl (12.0-16.0); Imm Gran Abs Auto 0.02 X10*3/uL (0.00-0.03); Imm Gran Pct Auto 0.3 % (0.0-0.4); Lymphocytes Absolute Auto 2.4 X10*3/uL (1.2-4.9); Lymphocytes Percent Auto 39.7 % (20-40); Mean Corpuscular HGB Conc 33.5 g/dl (31.0-35.0); Mean Corpuscular Hemoglobin 29.1 pg (27.0-33.0); Mean Corpuscular Volume 86.9 fL (80.0-98.0); Mean Platelet Volume 10.2 fL (9.4-12.3); Monocytes Absolute Auto 0.4 X10*3/uL (0.1-1.2); Monocytes Percent Auto 6.1 % (2-11); Neutrophils Absolute Auto 3.1 x10*3/uL (2.0-8.3); Neutrophils Percent Auto 51.2 % (45-73); Platelet Count 220 X10*3/uL (160-400); Red Blood Count 4.43 X10*6/uL (4.20-5.50); Red Cell Distribution Width 12.8 % (11.0-16.0); White Blood Count 6.1 X10*3/uL (4.8-10.8)
[2024-06-10 11:01] LABS: Estimated Average Glucose 100 mg/dL; Hemoglobin A1C 100.2256 umol/L; Hemoglobin A1c % 5.1 % (<6.0); Total Hemoglobin (HGBA1C) 3086.2004 umol/L
[2024-06-10 12:02] LABS: Anion Gap 8 (12-20); Blood Urea Nitrogen 13 mg/dL (9-16); C Reactive Protein 0.13 mg/dL (< or = 0.50); Carbon Dioxide 29 mmol/L (22-29); Chloride 108 mmol/L (96-108); Cholesterol 222 mg/dL (<200); Estimated Glomerular Filt Rate > 60; Glucose Random 83 mg/dL (60-115); HDL Cholesterol 51 mg/dL (>40); Iron 79 mcg/dL (30-160); LDL Cholesterol Calculated 153 mg/dL (<100); Percent Iron Saturation 32 % (15-50); Potassium 4.4 mmol/L (3.3-5.1); Sodium 141 mmol/L (135-145); Total Iron Binding Capacity 246 mcg/dL (228-428); Triglycerides 94 mg/dL (<150); Unsaturated Iron Binding 167 ug/dL
[2024-06-10 12:04] LABS: Ferritin 117 ng/mL (10-250); Insulin 4 uU/mL (2-29); TSH reflex Free T4 0.78 uIU/mL (0.32-4.0); Vitamin D 25-OH Total 59.9 ng/mL (>30)
[2024-06-10 12:25] LABS: Folate 6.4 ng/mL (> or = 4.0); Vitamin B12 352 pg/mL (200-900)
[2024-06-14 04:09] LABS: Zinc 68 mcg/dL (60-130)
[2024-06-15 21:37] LABS: Vitamin A 34 mcg/dL (38-98)
[2024-06-16 06:09] LABS: Vitamin B1 11 nmol/L (8-30)
== END 2024-06-10 10:06 | disposition home or self-care (01) ==
LOC: HO.LAB 10:05
PROVIDERS: PCP Internal Medicine; Visit Provider Physician Assistant Surgical
DX: E78.00 Pure hypercholesterolemia, unspecified (principal); R79.89 Other specified abnormal findings of blood chemistry; E78.5 Hyperlipidemia, unspecified; Z98.84 Bariatric surgery status
CPT/HCPCS: 36415; 80048; 80061; 82306; 82607; 82728; 82746; 83036; 83525; 83540; 84425; 84443; 84590; 84630; 85025; 86140

== ENCOUNTER 2024-06-16 08:56 | Outpatient (REF) | payer OTHER, SELFPAY | END 2024-06-16 08:57 | disposition home or self-care (01) | LOC: HO.US 08:56 | PROVIDERS: PCP Internal Medicine; Visit Provider Physician Assistant Surgical | DX: E78.5 Hyperlipidemia, unspecified (principal); Z98.84 Bariatric surgery status; R79.89 Other specified abnormal findings of blood chemistry; E78.00 Pure hypercholesterolemia, unspecified | CPT/HCPCS: 76700; 76981 ==

== ENCOUNTER 2024-07-21 09:03 | Outpatient (AMB) | payer OTHER, SELFPAY ==
[2024-07-21 09:09] VITALS: BP 110/60; BMI 28.7
--- NOTE | 2024-07-21 09:09 | A.OFFPC_ITS ---
Vital Signs 07/21/24 09:09 Height 4 ft 6 in Weight 119 lb BMI 28.7 BP 110/60 Blood Pressure Location Lt brachial Position Sitting Intake Visit Reasons: annual exam Intake Note: Patient here for a physical exam Chain Hooker Required: No Accompanied by: Self / Same As Patient Allergies atorvastatin Adverse Reaction (Unknown, Verified 07/21/24 09:23) dizziness,blurry vision Medication List - Last Reconciled 07/21/24 by Radha Poe MD [walker with seat and wheels walker with seat and wheels please] Tobacco use date assessed: 12/16/23 Dental Screening Dental Screen Date: 07/21/24 Did you have a dental visit in the last 12 months?: No Did you have a dental problem in the last 6 months where you did not have access to dental care?: No Was dental information given to patient?: Patient has dentist HPI HPI Comments History of Present Illness Details The patient is a 53-year-old female presenting with an annual physical examination. During the visit, it was confirmed that the patient has a known allergy to atorvastatin, which causes dizziness and blurred vision, and she is not currently on any medication. She underwent gastric sleeve surgery in November of this year as well as bladder repair and ureterostomy in 2018 to remove a kidney stone. An endometrial ablation was performed in 2014, and she has a history of two deliveries followed by tubal ligation. The patient previously weighed 198 pounds and has reduced to her current weight of 119 pounds. Despite this weight loss, her BMI remains at 28.7, which classifies her as overweight. Her cholesterol levels remain elevated, although the specific dietary changes led to a low [place] Risk Score of 0.9% for cardiovascular events within the next decade. The patient reports no current symptoms of chest pain, dyspnea, cough, fever, or urinary or bowel issues. - Recent mammogram (2022): normal. - Pap smear (2020): normal. - Colonoscopy pending. - Tdap vaccination administered in 2018. - Declined flu vaccination this year. - Recommended Shingrix vaccination due t o age. - Advised vitamin B6 and increased hydra tion to prevent nephrolithiasis. [facility] Medical History (Updated 07/21/24 @ 10:18 by Radha Poe MD) Physical exam Kidney stones Screen for colon cancer Pain of both elbows Abdominal lump UTI (urinary tract infection) Right elbow pain Right shoulder pain Screening for hypothyroidism Right flank pain Left knee pain Right knee pain Eye exam, routine Potential exposure to STD Encounter for annual routine gynecological examination Right knee pain Screening due Morbid obesity Anxiety Sleep apnea Hyperkalemia History of kidney stones Pap test, as part of routine gynecological examination Lower back pain Pure hypercholesterolemia Surgical History S/P laparoscopic sleeve gastrectomy History of bladder repair surgery History of ureterostomy History of extraction of renal calculus History of endometrial ablation History of section History of tubal ligation Family History Father Liver cancer Mother CVD (cardiovascular disease) Hypertension Social History Household Members: Family Housing: Apartment Are you a primary account executive healthcare to a significant other at home: Yes (mother, aunt will assist post-op) Do you presently have visiting nurse or other home services: No Alcohol intake: never Patient Tobacco Use Status: Never used Tobacco e-Cigarette/Vaping Use: Never Used Second Hand Smoke Exposure: No service: No Current occupational status: employed Current occupational exposures/hazards: No Cognitive needs: No Hearing needs: No Vision needs: Yes Questionnaire Thrive Questionnaire Date Thrive assessed: 12/18/23 I am a: Patient What is your living situation today?: I choose not to answer this question Within the past 12 months, did the food you bought not last and you didn't have the money to get more?: I choose not to answer this question Within the past 12 months, did you worry whether your food would run out before you got money to buy more?: I choose not to answer this question Do you have trouble paying for medicines?: I choose not to answer this question Do you have trouble getting transportation to medical appointments?: I choose not to answer this question Do you have trouble paying your heating and electricity bill?: I choose not to answer this question Do you have trouble taking care of your child, family member or friend?: I choose not to answer this question Do you have trouble with day-to-day activities such as bathing, preparing meals, shopping, managing finances, etc.?: I choose not to answer this question Are you currently unemployed and looking for a job?: I choose not to answer this question Are you interested in more education?: I choose not to answer this question Please select the resources that you would like help with: None Currently or been in a relationship where the following occur: I choose not to answer THRIVE Score: 0 AUDIT C Alcohol Use Questionnaire (AUDIT-C) 1. How often do you have a drink containing alcohol?: Never Total Score: 0 Score Reviewed/Action Taken: No JOSE RAFAEL-7 AMB Questionnaire JOSE RAFAEL-7 Date JOSE RAFAEL - 7 assessed: 12/16/23 Feeling nervous, anxious, or on edge: 3 = Nearly every day Not being able to stop or control worryin = Not at all Worrying too much about different things: 0 = Not at all Trouble relaxin = Not at all Being so restless that it is hard to sit still: 0 = Not at all Becoming easily annoyed or irritable: 0 = Not at all Feeling afraid as if something awful might happen: 0 = Not at all Total JOSE RAFAEL-7 score (0-4 normal; 5-9 mild; 10-14 moderate; 15-21 severe): 3 Source: Developed by Drs. Bonifacio Dorsey, Sandy Owen, Farshad Skinner and colleagues, with an educational isma from [employer]. JOSE RAFAEL-7 Assessment Billing JOSE RAFAEL-7 Assessment Tool: JOSE RAFAEL-7 Assessment 94050 Review of Systems Const All systems reviewed & are unremarkable except as noted in HPI and below Card Denies chest pain at rest, Denies chest pain with activity, Denies edema, Denies irregular heart rhythm, Denies claudication, Denies dyspnea, Denies dyspnea on exertion, Denies orthopnea, Denies paroxysmal nocturnal dyspnea and Denies slow heart rate Resp Denies cough, Denies dyspnea and Denies dyspnea on exertion GI Denies abdominal pain, Denies change in bowel habits, Denies excessive flatus, Denies nausea and Denies vomiting Denies urinary incontinence, Denies urinary hesitancy and Denies urinary urgency Musc Reports back pain Neuro Denies behavioral changes and Denies lack of coordination Psych Denies behavioral changes Physical exam (Primary Care) Vital Signs: Last Vital Signs BP 110/60 07/21/24 09:09 BMI result Body Mass Index 28.7 BMI Assessment/Plan discussion: High BMI High, discussed plan: lifestyle, weight reduction, dietary and physical activity Tobacco/Smoking Status: Tobacco use Status Tobacco use date assessed 12/16/23 07/21/24 09:13 Patient Tobacco Use Status Never used Tobacco 07/21/24 09:13 e-Cigarette/Vaping Use Never Used 07/21/24 09:13 Thrive Assessment: Date of Thrive Assessment Date Thrive assessed 12/18/23 07/21/24 09:13 Currently or been in a relationship where the following occur: I choose not to answer [facility] Head: Yes normal to inspection, Yes normocephalic and Yes atraumatic Ears: external ears normal Eyes General: appearance normal, both eyes and all related structures Eyelids: Yes eyelids normal Conjunctivae: conjunctivae normal Neck Neck: Yes normal visual inspection and Yes supple Resp Effort & Inspection: normal respiratory effort Auscultation: clear to auscultation bilaterally Cardio Jugular venous distension: no JVD Rate: regular rate Rhythm: regular rhythm Heart sounds: S1 normal heart sound present and S2 normal heart sound present GI Inspection: Yes normal to inspection Palpation (GI): Soft to palpation and nontender Auscultation: normal bowel sounds General: Yes CVA tenderness on the right Back/Spine/Pelvis Back: CVA tenderness Skin General skin exam: no rashes or lesions noted Neuro General: no focal motor deficits Extrem General: Yes full ROM Psych Appearance: grossly normal Office Procedures Flu Questionnaire Does the patient have a severe egg allergy?: No Immunizations Fluarix Triv [id number] (PF) 45 mcg (15 mcg x 3)/0.5 mL IM syringe Performing Provider: Radha Poe MD [place] [facility] Documented (not given) by: NEO Wei on 07/21/24 09:13 Reason Not Given: Patient Refused Coding Level of Care Code Est Pt Level 3 (97316) Est Pt Prev Care 40-64y(96075) Diagnoses Physical exam Z00.00 Kidney stones N20.0 Additional Codes JOSE RAFAEL-7 Assessment Billing - JOSE RAFAEL-7 Assessment Tool: JOSE RAFAEL-7 Assessment 56441 ([id number]) Time Spent (min) 33 Assessment & Plan Assessment & Plan (1) Physical exam: Code(s): Z00.00 - Encounter for general adult medical examination without abnormal findings Category: Medical (2) Kidney stones: Comment: Hx Code(s): N20.0 - Calculus of kidney Category: Medical Plan - Allergy to atorvastatin: Chief Clinical Officer on avoidance and alternative lipid management. - Elevated cholesterol: Continue dietary changes; monitor levels; not indicated for medication due to low [place] Risk Score. - Overweight: Continue dietary modifications; encourage weight monitoring. - History of nephrolithiasis: Refer to urology; obtain kidney imaging; suggest vitamin B6 and increased water intake with lemon. Patient was informed and verbally consented to the use of an ambient scribe for clinic note documentation during this visit. I discussed with the patient the management of her atorvastatin allergy and the implications of her elevated cholesterol levels. With her low [place] Risk Sc ore, medication is not necessary, but she should continue dietary measures to control cholesterol. We addressed her increased BMI and applauded her weight loss, emphasizing continued healthy eating. I recommended vitamin B6 and increased fluid intake to prevent kidney stones, and the patient expressed understanding and consent. I emphasized the importance of completing her pending colonoscopy and receiving the Shingrix vaccine. Follow-up with urology for possible additional stone evaluation was advised. Orders: Orders Influenza [id number] Immunization Today Z23 - Encounter for immunization XR KUB Today N20.0 - Calculus of kidney Referrals Urology Referral N20.0 - Calculus of kidney Medications: New pyridoxine (vitamin B6) 50 mg PO DAILY 90 tabs 1RF 90 days N20.0 - Calculus of kidney Patient Instructions: - Avoid atorvastatin and consider alternative lipid-lowering strategies. - Maintain current diet; continue focus on low cholesterol. - Add vitamin B6 supplement to regimen. - Increase water intake and lemon use for kidney stone prevention. - Follow up for pending colonoscopy. - Consider Shingrix vaccination. - Follow up with urology for kidney stone evaluation.
== END 2024-07-21 09:33 | disposition home or self-care (01) ==
PROVIDERS: PCP Internal Medicine; Visit Provider Internal Medicine
DX: Z00.00 Encounter for general adult medical examination without abnormal findings (principal); N20.0 Calculus of kidney

== ENCOUNTER → 2024-07-21 09:03 | Outpatient (BNVA) | payer OTHER, SELFPAY | PROVIDERS: PCP Internal Medicine; Visit Provider Internal Medicine | DX: Z00.00 Encounter for general adult medical examination without abnormal findings (principal); N20.0 Calculus of kidney | CPT/HCPCS: 96127; 99212; 99396 ==

== ENCOUNTER 2024-07-25 10:06 | Outpatient (AMB) | payer OTHER, SELFPAY ==
--- NOTE | 2024-07-25 10:21 | MHC.OFFVISWM ---
VS Expanded 07/25/24 10:28 BP 118/61 Blood Pressure Location Rt brachial Blood Pressure Position Sitting Pulse 64 Pulse Source Pulse Oximeter Temp 96.7 F L Temperature Source Temporal Artery Scan Pulse Oximetry 100 Oxygen Delivery Method Room Air Height 4 ft 6 in Weight 115 lb 9.6 oz BMI 27.9 Body Fat % 28.8 Body Fat Mass 33.2 Fat Free Mass 82.2 Visceral Fat Rating 6.0 Body Water % 50.6 Body Water Mass 58.4 Muscle Mass/Score 78.0 Basal Metabolic Rate/Score 1,124 Intake Visit Reasons: (OV) PO LSG 12/17/23 Programmer Analyst Required: Yes Programmer Analyst Services: Programmer Analyst Present Programmer Analyst Name: hospital cmi Allergies atorvastatin Adverse Reaction (Unknown, Verified 07/25/24 10:29) dizziness,blurry vision HPI Comments Details: This?a?53?yo female who is s/p LSG without hiatal hernia repair on?12/17/2023. Presents for 7 month post op visit. Weight today is 115.6 pounds, with a BMI of 27.9. There has been a 72 pound weight loss,(initial weight 187.6 pounds) since starting the program on 07/07/2023 reflecting a 38.3 % total body weight loss and a weight loss of 37.4 pounds since surgery (operative weight 153 pounds) reflecting a 24.4 % TBWL since surgery. No complaints of nausea, emesis, abdominal pain or reflux. Reports infrequent but normal bowel movements every 2-3 days and uses stool softeners regularly. She continues taking bariatric multivitamin daily. She is doing well and denies any problems. Meal plan: two [place]rugu[place] yogurt - 20 gm 3 forks protein and 5 forks cooked vegetables Drinking 48 oz of water daily Exercise plan: walking daily 35 minutes [facility] Medical History Physical exam Kidney stones Screen for colon cancer Pain of both elbows Abdominal lump UTI (urinary tract infection) Right elbow pain Right shoulder pain Screening for hypothyroidism Right flank pain Left knee pain Right knee pain Eye exam, routine Potential exposure to STD Encounter for annual routine gynecological examination Right knee pain Screening due Morbid obesity Anxiety Sleep apnea Hyperkalemia History of kidney stones Pap test, as part of routine gynecological examination Lower back pain Pure hypercholesterolemia Surgical History S/P laparoscopic sleeve gastrectomy History of bladder repair surgery History of ureterostomy History of extraction of renal calculus History of endometrial ablation History of section History of tubal ligation Family History Father Liver cancer Mother CVD (cardiovascular disease) Hypertension Social History Household Members: Family Housing: Apartment Are you a primary care technician to a significant other at home: Yes (mother, aunt will assist post-op) Do you presently have visiting nurse or other home services: No Alcohol intake: never Patient Tobacco Use Status: Never used Tobacco e-Cigarette/Vaping Use: Never Used Second Hand Smoke Exposure: No service: No Current occupational status: employed Current occupational exposures/hazards: No Cognitive needs: No Hearing needs: No Vision needs: Yes Physical Exam Const General: healthy appearing and no acute distress Resp Effort & Inspection: normal respiratory effort Auscultation: clear to auscultation bilaterally Cardio Rate: regular rate Rhythm: regular rhythm GI Auscultation: normal bowel sounds Extrem General: Yes normal to inspection Assessment & Plan Assessment & Plan (1) S/P laparoscopic sleeve gastrectomy: Code(s): Z98.84 - Bariatric surgery status Category: Surgical Plan: Patient continues vitamin-A supplementation She wishes to change her meal plan to include 2 meals 2 meals with 4 forks of protein and 4 forks of vegetables [place] yogurt Return to [facility] Return to clinic 2 months. Encouraged to continue sending weight measurements weekly and with any questions or concerns.
[2024-07-25 10:28] VITALS: BP 118/61; PULSE 64; TEMP 35.9; O2SAT 100; BMI 27.9
== END 2024-07-25 10:45 | disposition home or self-care (01) ==
PROVIDERS: PCP Internal Medicine; Visit Provider Physician Assistant Surgical
DX: E66.3 Overweight (principal); Z68.27 Body mass index [BMI] 27.0-27.9, adult; Z90.3 Acquired absence of stomach [part of]; Z98.84 Bariatric surgery status
CPT/HCPCS: 99213; G2211

== ENCOUNTER → 2024-07-25 10:06 | Outpatient (BNVA) | payer OTHER, SELFPAY | PROVIDERS: PCP Internal Medicine; Visit Provider Physician Assistant Surgical | DX: E66.3 Overweight (principal); Z68.27 Body mass index [BMI] 27.0-27.9, adult; Z90.3 Acquired absence of stomach [part of] | CPT/HCPCS: 99212 ==

== ENCOUNTER 2024-08-01 10:03 | Outpatient (REF) | payer OTHER, SELFPAY | END 2024-08-01 10:04 | disposition home or self-care (01) | LOC: HO.XRAY 10:03 | PROVIDERS: PCP Internal Medicine; Visit Provider Internal Medicine | DX: N20.0 Calculus of kidney (principal) | CPT/HCPCS: 74018 ==

== ENCOUNTER 2024-09-20 08:03 | Outpatient (AMB) | payer OTHER, SELFPAY ==
--- NOTE | 2024-09-20 08:21 | MHC.OFFVIS ---
Intake Visit Reasons: HX Kidney Stone/Incontinence Intake Note: New Patient presents for initial visit for history of kidney stones and incontinence Urology Medications: vitamin b6 Blood Thinner: none PVR: 22ml's Station Baggage Agent Required: Yes Station Baggage Agent Services: Station Baggage Agent Present Station Baggage Agent Name: [id number] Accompanied by: Self / Same As Patient Allergies atorvastatin Adverse Reaction (Unknown, Verified 09/20/24 09:03) dizziness,blurry vision Medication List - Last Reconciled 09/20/24 by AKSHAT Bruner pyridoxine (vitamin B6) 50 mg PO DAILY 90 days sennosides (senna) 17.2 mg (2 x 8.6 mg) PO BEDTIME PRN [walker with seat and wheels walker with seat and wheels please] HPI Comments Details: Mary is a pleasant 53 year old Mongolian-speaking female patient of Dr. Barrow. She has a past medical history of nephrolithiasis, obesity, anxiety, sleep apnea, and hypercholesteremia. She presents to the office today as a new patient for her longstanding history of nephrolithiasis. In discussion with the patient today she reports a longstanding history of nephrolithiasis requiring previous surgical intervention with ureteroscopy and as well in the past. She discusses having undergone gastric sleeve 12/22. She currently denies any bothersome urinary issues. She does report stress/urge incontinence however does not find this bothersome and feels she is self managing. In office urinalysis results reviewed with the patient today. We discussed at length potential causes of stress/urge incontinence as well as nephrolithiasis. We discussed importance of adequate hydration relation to nephrolithiasis as well as overall health and well-being. She reports compliance with vitamin B6. She denies urinary urgency, urinary frequency, incontinence, nocturia, hematuria, dysuria, foul smelling urine, changes to urinary stream, flank pain, fever, and or chills. Most recent KUB results reviewed with the patient today 08/23. The bowel gas pattern is normal with no evidence of ileus or obstruction. No unusual soft tissue calcifications are noted. Degenerative changes of the lower lumbar spine.Unremarkable examination. She is happy with her current voiding parameters. She otherwise offers no other issues or concerns at this time. [facility] Medical History Physical exam Kidney stones Screen for colon cancer Pain of both elbows Abdominal lump UTI (urinary tract infection) Right elbow pain Right shoulder pain Screening for hypothyroidism Right flank pain Left knee pain Right knee pain Eye exam, routine Potential exposure to STD Encounter for annual routine gynecological examination Right knee pain Screening due Morbid obesity Anxiety Sleep apnea Hyperkalemia History of kidney stones Pap test, as part of routine gynecological examination Lower back pain Pure hypercholesterolemia Surgical History S/P laparoscopic sleeve gastrectomy History of bladder repair surgery History of ureterostomy History of extraction of renal calculus History of endometrial ablation History of section History of tubal ligation Family History Father Liver cancer Mother CVD (cardiovascular disease) Hypertension Social History Household Members: Family Housing: Apartment Are you a primary customer care manager to a significant other at home: Yes (mother, aunt will assist post-op) Do you presently have visiting nurse or other home services: No Alcohol intake: never Patient Tobacco Use Status: Never used Tobacco e-Cigarette/Vaping Use: Never Used Second Hand Smoke Exposure: No service: No Current occupational status: employed Current occupational exposures/hazards: No Cognitive needs: No Hearing needs: No Vision needs: Yes Review of Systems Const Reports no additional complaints Eyes Reports no additional complaints ENT Reports no additional complaints Card Reports as per HPI Resp Reports no additional complaints GI Reports as per HPI Reports as per HPI Musc Reports no additional complaints Neuro Reports no additional complaints Psych Reports no additional complaints Endo Reports no additional complaints Aller/Immun Reports no additional complaints Physical Exam Const General: cooperative, healthy appearing, comfortable, no acute distress, well developed, alert and awake Orientation/consciousness: patient oriented x3 Limitations: no limitations HEENT Head: Yes normal to inspection, Yes normocephalic and Yes atraumatic Ears: hearing grossly normal bilaterally Eyes General: appearance normal, both eyes and all related structures Neck Neck: Yes normal visual inspection and Yes trachea midline Chest Chest palpation & inspection: normal inspection of the chest Resp Effort & Inspection: normal respiratory effort and able to speak in complete sentences Cardio Rate: regular rate GI Inspection: Yes normal to inspection General: Yes no CVA tenderness Back/Spine/Pelvis Back: no CVA tenderness Skin General skin exam: no rashes or lesions noted Neuro General: patient oriented x3 Extrem General: Yes normal to inspection Psych Appearance: grossly normal and well kempt Mental Status: mental status grossly normal Speech and movement: Normal speech and movement present and Clear speech present Affect: normal affect Attitude: cooperative Thought process: Normal thought process present Thought content: Normal thought content present Insight: Fair insight present (Psych) Judgement: Fair judgement present (Psych) Office Procedures Post Void Residual Post Residual Void Post Void Residual (PVR): 22 [id number] Void Residual by ultrasound Results AMB Urinalysis, Automated UA Leukoctes 70 Nicole/uL Last Edit by [employer] on 09/20/24 09:07 UA Nitrite Last Edit by [employer] on 09/20/24 09:07 UA Urobilinogen 0.2 mg/dL Last Edit by [employer] on 09/20/24 09:07 UA Protein 0 mg/dL Last Edit by [employer] on 09/20/24 09:07 UA pH 6.5 Last Edit by [employer] on 09/20/24 09:07 UA Blood 0 Stephan/uL Last Edit by [employer] on 09/20/24 09:07 UA Specific [place] 1.015 Last Edit by [employer] on 09/20/24 09:07 UA Ketone Last Edit by [employer] on 09/20/24 09:07 UA Bilirubin 0 mg/dL Last Edit by [employer] on 09/20/24 09:07 UA Glucose 0 mg/dL Last Edit by [employer] on 09/20/24 09:07 Results Reviewed Results Reviewed: Laboratory Last Values Urine pH (Auto) 6.5 09/20/24 09:03 Specific [place] (Auto) 1.015 09/20/24 09:03 Urine Protein (Auto) 0 mg/dL 09/20/24 09:03 Glucose (UA)(Auto) 0 mg/dL 09/20/24 09:03 Urine Blood (Auto) 0 Stephan/uL 09/20/24 09:03 Urine Bilirubin (Auto) 0 mg/dL 09/20/24 09:03 Urine Urobilinogen (Auto) 0.2 mg/dL 09/20/24 09:03 Leukocyte Esterase (Auto) 70 Nicole/uL 09/20/24 09:03 Date of Service: 08/01/24 EXAMINATION: XR ABDOMEN KUB FINDINGS: The bowel gas pattern is normal with no evidence of ileus or obstruction. No unusual soft tissue calcifications are noted. Degenerative changes of the lower lumbar spine. IMPRESSION: Unremarkable examination. Assessment & Plan Assessment & Plan (1) Kidney stones: Comment: Hx Code(s): N20.0 - Calculus of kidney Category: Medical (2) Urinary incontinence: Code(s): R32 - Unspecified urinary incontinence Category: Medical Plan In office urinalysis results reviewed with the patient today; as noted above. Recent KUB results reviewed with the patient today; as noted above. Patient currently denies any bothersome urinary issues. She reports be happy with current voiding parameters. We discussed pelvic floor exercises to assist with urge/stress incontinence. We discussed importance of adequate hydration relation to nephrolithiasis as well as overall health and well-being. Continue vitamin B6. Will obtain renal ultrasound in 3 months. Follow-up in 3-4 months with imaging to be completed prior and PVR at next office visit; or sooner with any issues, concerns, and or questions. Orders: Orders US renal BI 3 Months N20.0 - Calculus of kidney AMB Urinalysis Automated Today Z13.9 - Encounter for screening, unspecified AMB Post Void Residual by ultrasound Today R32 - Unspecified urinary incontinence Patient Instructions: The patient had an opportunity to ask questions regarding the treatment plan. All questions were answered. Physical exam, labs, and imaging were discussed and reviewed in detail. As well as risks, benefits, and discussion of treatment choices. No major barriers to understanding were identified. The patient expressed understanding and agreement with the above treatment plan. The patient was made aware they should contact our office by phone for worsening of their current condition, the appearance of new symptoms, or with any questions or concerns. Compliance is encouraged with any medications and follow up testing that is ordered. It is a privilege to be allowed the opportunity to participate in? your urological care.? Again, if you have any questions or concerns If you have any questions or concerns please do not hesitate to contact me. The office is [phone]. This note is constructed using voice recognition software. While every effort has been made to ensure accuracy magnet valve assembler errors may have been included. Yours sincerely, AKSHAT Bruner Coding Level of Care Code New Pt Level 3 (59741) Diagnoses Kidney stones N20.0 Urinary incontinence R32 CPT Codes Post Residual Void - PVR CPT Code: [id number] Void Residual by ultrasound ([id number])
== END 2024-09-20 08:52 | disposition home or self-care (01) ==
PROVIDERS: PCP Internal Medicine; Visit Provider Nurse Practitioner Family
DX: N20.0 Calculus of kidney (principal); R32 Unspecified urinary incontinence; Z13.9 Encounter for screening, unspecified
CPT/HCPCS: 99203

== ENCOUNTER → 2024-09-20 08:03 | Outpatient (BNVA) | payer OTHER, SELFPAY | PROVIDERS: PCP Internal Medicine; Visit Provider Nurse Practitioner Family | DX: R32 Unspecified urinary incontinence (principal); N20.0 Calculus of kidney; E78.00 Pure hypercholesterolemia, unspecified | CPT/HCPCS: 51798; 81003; 99202 ==

== ENCOUNTER 2024-12-20 09:56 | Outpatient (REF) | payer OTHER, SELFPAY ==
--- NOTE | ~2024-12-20 | US_ITS ---
CLINICAL HISTORY: N20.0 - Calculus of kidney Ultrasound kidneys. COMPARISON: None Technique: Real time sonographic imaging, including color-flow imaging, was performed by the cue selector. Multiple sales account representative static images were saved for review. FINDINGS: Right kidney: Cortical medullary differentiation is maintained. Normal color flow by Doppler. Right renal simple cyst in the midportion measuring 1.9 x 1.6 x 1.6 cm. Right renal calculus at the inferior pole measuring 0.3 x 0.2 x 0.2 cm. Right renal calculus in the midpole region measuring 0.2 x 0.2 x 0.2 cm. No hydronephrosis. Right kidney size: 9.5 x 5.8 x 5.4 cm Left kidney: Cortical medullary differentiation is maintained. Normal color flow by Doppler. Left renal simple cyst in the midpole region measuring 1.2 x 1.1 x 1.1 cm. Left renal calculus in the lower pole measuring 0.2 x 0.1 x 0.1 cm. Left renal calculus in the midpole region measuring 0.3 x 0.2 x 0.2 cm. Left renal calculus in the midpole region measuring 0.3 x 0.2 x 0.2 cm. No hydronephrosis. Left kidney size: 8.4 x 4.9 x 4.2 cm IMPRESSION: 1. No evidence of renal obstruction. 2. Bilateral renal calculi measuring up to 0.3 cm. 3. Bilateral simple renal cysts measuring up to 1.9 cm on the right. This document has been electronically signed by: Naeem Palumbo MD on 12/20/2024 16:02:20
--- OUTSIDE RECORDS SUMMARY | 2024-12-20 11:12 | XMS_ITS | Clinical Summary ---
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 Name Role Phone Unavailable Primary Care Provider Unavailabl e Social History Tobacco Use Types Packs/Day Years Used Date Smoking Tobacco: Never Assessed Comments Unknown Sex and Gender Information Value Date Recorded Sex Assigned at Not on file Legal Sex Female 1:54 PM EST Gender Identity Not on file Sexual Orientation Not on file Plan of Treatment Health Maintenance Due Date Last Done Comments Breast Cancer Screening 1970 DTaP,Tdap,and Td Vaccines (1 - Tdap) 1989 Hepatitis B Vaccines (1 of 3 - 19+ 3-dose series) 1989 Cervical Cancer Screening: P ap Smear 12/07/1991 Pneumococcal Vaccine: 50+ Ye ars (1 of 1 - PCV) 2020 Zoster Vaccines (1 of 2) 2020 COVID-19 Vaccine ( - 2023-2 5 season) 2024 Influenza Vaccine (Season Ended) 2025 HIB Vaccines Aged Out No longer eligi ble based on patient's age to complete this topic HPV Vaccines Aged Out No longer eligi ble based on patient's age to complete this topic Hepatitis A Vaccines Aged Out No long er eligible based on patient's age to complete this topic IPV Vaccines Aged Out No longer eligi ble based on patient's age to complete this topic MMR Vaccines Aged Out No longer eligi ble based on patient's age to complete this topic Meningococcal ACWY Vaccine Aged Out N o longer eligible based on patient's age to complete this topic Meningococcal B Vaccine Aged Out No l onger eligible based on patient's age to complete this topic Pneumococcal Vaccine: Pediat rics (0 to 5 Years) and At-Risk Patients (6 to 64 Years) Aged Out No longer eligible b ased on patient's age to complete this topic RSV Immunization Patients Un linh 20 months Aged Out No longer eligible b ased on patient's age to complete this topic Varicella Vaccines Aged Out No longer eligible based on patient's age to complete this topic
--- OUTSIDE RECORDS SUMMARY | 2024-12-20 11:12 | XMS_ITS | Clinical Summary ---
Author Organization [facility] Address [address] [place] [address] Care Team Providers Care Undergraduate Internship Name Role Phone Unavailable Primary Care Provider Unavailabl e Allergies No known active allergies Medications ibuprofen 600 MG tabletIndicatio ns:Pain, dental,Periodon dione disease,Seconda ry dental caries Take 1 tablet (600 mg) by mouth 3 times daily. 30 tablet 12/14/2024 Active acetaminophen (Tylenol 8 Hour) 650 MG ER tabletIndicatio ns:Pain, dental,Periodon dione disease,Seconda ry dental caries Take 1 tablet (650 mg) by mouth every 8 (eight) hours if needed for mild pain. Do not crush, chew, or split. 30 tablet 12/14/2024 Active amoxicillin (Amoxil) 500 MG capsuleIndicati ons:Pain, dental,Periodon dione disease,Seconda ry dental caries Take 1 capsule (500 mg) by mouth every 8 (eight) hours for 7 days. 21 capsule 12/14/2024 Active Active Problems Problem Noted Date Diagnosed Date Pain, dental 12/14/2024 Periodontal disease 12/14/2024 Secondary dental caries 12/14/2024 Encounters Date Type Department Care Team Description 12/14/2024 1:00 PM EDT Office Visit [facility] [address] [place] [address] Fredrick Bynum DDS Pain, dental (Primary Dx); Periodontal disease; Secondary dental caries from Last 3 Months Social History Tobacco Use Types Packs/Day Years Used Date Smoking Tobacco: Never Passive Smoke Exposure: Never Smokeless Tobacco: Never Tobacco Cessation:Counseling Given: No Alcohol Use Standard Drinks/Week Comments Never 0 (1 standard drink = 0.6 oz pur e alcohol) Comments Unknown Sex and Gender Information Value Date Recorded Sex Assigned at Female 06/30/2022 10:31 AM EDT Legal Sex Female 10:31 AM EDT Gender Identity Female 12/14/2024 9:37 AM EDT Sexual Orientation Straight 12/14/2024 9: 37 AM EDT Last Filed Vital Signs Vital Sign Reading Time Taken Comments Blood Pressure 106/68 12/14/2024 1:28 PM EDT Pulse 66 12/14/2024 1:28 PM EDT Temperature - - Respiratory Rate - - Oxygen Saturation - - Inhaled Oxygen Concentration - - Weight - - Height - - Body Mass Index - - Plan of Treatment Upcoming Encounters Date Type Department Care Team (Late st Contact Info) Description 12/21/2024 8:00 AM EDT Office Visit [facility] [address], [place] [phone] Fredrick Bynum, DDS [address], [place] [phone] Health Maintenance Due Date Last Done Comments CT Colonography 1970 Colonoscopy 1970 Colorectal Cancer Screening 1970 Dental Prophylaxis 1970 Depression Screening 1970 FIT DNA/Cologuard 1970 FIT 1970 FOBT 1970 HIV Screening 1970 SDOH Screening 1970 Sigmoidoscopy 1970 Alcohol/Substance Use Screening 1982 Hepatitis C Screening 1988 Hepatitis B Vaccines (1 of 3 - 19+ 3-dose series) 1989 Pap Smear 12/07/1991 Dental Oral Exam 06/25/2017 12/23/2016 Dental X-Ray: Bitewings 12/24/2017 12/23/2016 Pneumococcal Vaccine: 50+ Years (1 of 1 - PCV) 2020 Zoster Vaccines (1 of 2) 2020 Mammogram 07/21/2022 07/21/2020 COVID-19 Vaccine (1 - 2023-2 5 season) 2024 Influenza Vaccine (#1) 2024 Tobacco Screening 12/14/2025 12/14/2024 Cervical Cancer Screening 02/26/2026 HPV/Cotest 02/26/2026 02/26/2021, 02/26/2021 Dental X-Ray: Full Mouth 12/16/2027 025, 01/22/2018, 12/23/2016 DTaP/Tdap/Td Vaccines (2 - T d or Tdap) 11/09/2028 11/09/2018 RSV Patients and Patients Aged 60 years or older (1 - 1-dose 75+ series) 2045 HIB Vaccines Aged Out No longer eligi [...] patient's age to complete this topic Meningococcal Vaccine Aged Out No joseph brandon eligible based on patient's age to complete this topic RSV under 20 months Aged Out No longe r eligible based on patient's age to complete this topic Rotavirus Vaccines Aged Out No longer eligible based on patient's age to complete this topic Procedures Procedure Name Priority Date/Time Associated Diagnosis Comments PALLIATIVE (EMERGENCY) TREATMENT OF DENTAL PAIN - MINOR PROCEDURE Routine 12/14/2024 1:00 PM EDT PANORAMIC RADIOGRAPHIC IMAGE Routine 12/14/2024 1:00 PM EDT CASE PRESENTATION, DETAILED AND EXTENSIVE TREATMENT PLANNING Routine 12/14/2024 1:00 PM EDT SRAVANI HISTORICAL HPV E6/E7 RFLX ABDI 16 18/45 Routine 02/26/2021 9:56 AM EDT MAMMOGRAM GENERIC Routine 07/21/2020 8:3 8 AM EST INTRAORAL - COMPLETE SERIES OF RADIOGRAPHIC IMAGES Routine 12/23/2016 12:00 AM EDT COMPREHENSIVE ORAL EVALUATION - NEW OR ESTABLISHED PATIENT Routine 12/23/2016 12:00 AM EDT from Last 3 Months or Most Recently Relevant to Health Maintenance Results * HPV E6/E7 RFLX ABDI 16 18/45 (02/26/2021 9:56 AM EDT) Pathologist [facility] HPV mRNA E6/E7 rflx Not Detected Not Detected [facility] Comment: Methodology: Winding Rack Operator-Mediated Amplification This assay detects E6/E7 viral messenger RNA (mRNA) from 14 high-risk HPV types (16,18,31,33,35,39,45,51,52,56,58,59,66,68). The analytical performance characteristics of this assay have been determined by [employer]. The modifications have not been cleared or approved by the FDA. This assay has been validated pursuant to the CLIA regulations and is used for clinical purposes. For additional information, please refer to http://education.[employer]faq/MTF988s0 (This link if provided for information/ educational purposes only.) THIS TEST WAS PERFORMED AT: [employer] [address] [place] [address] [address] [place], [place] ??[id number] MURRAY GREY MD 02/26/2021 9:56 AM EDT Radha Connelly HISTORICAL/NON ORDERABLE LABS Fi nal Result [facility] [address] * Mammography Report 1 (07/21/2020 8:38 AM EST) Anatomical Region Laterality Modality Breast Bilateral Mammography 07/21/2020 8:38 AM EST Narrative 07/23/2020 12:47 PM EST Refer to the Notes tab for result details [facility] Procedure: Mammography Report 1 Procedure Note ProviderAisha MD - 11/22/2022 Refer to the Notes tab for result details [facility] Procedure: Mammography Report 1 Historical Provider IMG BI PROCEDURES Final R esult from Last 3 Months or Most Recently Relevant to Health Maintenance Insurance [facility] STAND ADULT * Guarantor: Mary Galvan Account Type Relation to Patient Date of Phone Billing Address Personal/Family Self [address] [place] [address] * Guarantor: Mary Galvan Account Type Relation to Patient Date of Phone Billing Address Personal/Family Self [address] [place] [address] * Guarantor: Mary Galvan Account Type Relation to Patient Date of Phone Billing Address Personal/Family Self [address] [place] [address] * Guarantor: Mary Galvan Account Type Relation to Patient Date of Phone Billing Address Personal/Family Self [address] [place] [address]
== END 2024-12-20 09:57 | disposition home or self-care (01) ==
LOC: HO.US 09:56
PROVIDERS: PCP Internal Medicine; Visit Provider Nurse Practitioner Family
DX: N20.0 Calculus of kidney (principal)
CPT/HCPCS: 76775

== ENCOUNTER → 2024-12-20 09:58 | Outpatient (BNV) | payer OTHER, SELFPAY | PROVIDERS: PCP Internal Medicine; Visit Provider Radiology Diagnostic Radiology | DX: N20.0 Calculus of kidney (principal); N28.1 Cyst of kidney, acquired | CPT/HCPCS: 76775 ==

== ENCOUNTER 2025-01-17 09:00 | Outpatient (AMB) | payer OTHER, SELFPAY ==
--- OUTSIDE RECORDS SUMMARY | 2025-01-17 09:34 | XMS_ITS | Clinical Summary ---
Author Organization [facility] Address [address] [place] [address] Care Team Providers Care Burring Wheel Operator Name Role Phone Unavailable Primary Care Provider Unavailabl e Allergies No known active allergies Medications ibuprofen 600 MG tabletIndicat ions:Pain, dental,Period ontal disease,Secon bebeto dental caries Take 1 tablet (600 mg) by mouth 3 times daily. 30 tablet 12/15/19 25 Active Additional Information Patient not taking.Reported on 12/22/2024 acetaminophen (Tylenol 8 Hour) 650 MG ER tabletIndicat ions:Pain, dental,Second eduardo dental caries,Period ontal disease Take 1 tablet (650 mg) by mouth every 8 (eight) hours if needed for mild pain. Do not crush, chew, or split. 30 tablet 12/23/19 25 Active acetaminophen (Tylenol 8 Hour) 650 MG ER tabletIndicat ions:Pain, dental,Period ontal disease,Secon bebeto dental caries Take 1 tablet (650 mg) by mouth every 8 (eight) hours if needed for mild pain. Do not crush, chew, or split. 30 tablet 12/15/19 25 025 Discontinued(Re order (will not trigger notification to Pharmacy)) amoxicillin (Amoxil) 500 MG capsuleIndica tions:Pain, dental,Period ontal disease,Secon bebeto dental caries Take 1 capsule (500 mg) by mouth every 8 (eight) hours for 7 days. 21 capsule 12/15/19 25 025 amoxicillin (Amoxil) 500 MG capsuleIndica tions:Pain, dental,Second eduardo dental caries,Period ontal disease Take 1 capsule (500 mg) by mouth every 8 (eight) hours for 7 days. 21 capsule 12/23/19 25 025 Active Problems Problem Noted Date Diagnosed Date Pain, dental 12/14/2024 Periodontal disease 12/14/2024 Secondary dental caries 12/14/2024 Encounters Date Type Department Care Team Description 12/22/2024 8:00 AM EDT Office Visit [facility] [address] [place] [address] Fredrick Bynum DDS Pain, dental (Primary Dx); Secondary dental caries; Periodontal disease 12/14/2024 1:00 PM EDT Office Visit [facility] [address] [place] [address] Fredrick Bynum DDS Pain, dental (Primary Dx); [...] Sign Reading Time Taken Comments Blood Pressure 118/76 12/22/2024 8:01 AM EDT Pulse 66 12/14/2024 1:28 PM EDT Temperature - - Respiratory Rate - - Oxygen Saturation - - Inhaled Oxygen Concentration - - Weight - - Height - - Body Mass Index - - Plan of Treatment Upcoming Encounters Date Type Department Care Team (Late st Contact Info) Description 06/27/2025 1:00 PM EDT Office Visit [facility] [address] [place] [address] Joanie Villatoro Health Maintenance Due Date Last Done Comments CT Colonography 1970 Colonoscopy 1970 Colorectal Cancer Screening 1970 Dental Prophylaxis 1970 Depression Screening 1970 FIT DNA/Cologuard 1970 FIT 1970 FOBT 1970 HIV Screening 1970 SDOH Screening 1970 Sigmoidoscopy 1970 Disability Screening 1970 Alcohol/Substance Use Screening 1982 Hepatitis C [...] 2024 Influenza Vaccine (#1) 2024 Tobacco Screening 12/22/2025 12/22/2024 Cervical Cancer Screening 02/26/2026 HPV/Cotest 02/26/2026 02/26/2021, [...] Procedure Name Priority Date/Time Associated Diagnosis Comments 19 EXTRACTION, ERUPTED TOOTH REQ REMOVAL OF BONE AND/OR SECTIONING OF TOOTH Routine 12/22/2024 8:00 AM EDT CASE PRESENTATION, DETAILED AND EXTENSIVE TREATMENT PLANNING Routine 12/22/2024 8:00 AM EDT PALLIATIVE (EMERGENCY) TREATMENT OF DENTAL PAIN - MINOR PROCEDURE Routine 12/14/2024 1:00 PM EDT PANORAMIC RADIOGRAPHIC IMAGE Routine 12/14/2024 1:00 PM EDT CASE PRESENTATION, DETAILED AND EXTENSIVE TREATMENT PLANNING Routine 12/14/2024 1:00 PM EDT ZZZ HISTORICAL HPV E6/E7 RFLX ABDI 16 18/45 [...] 16 18/45 (02/26/2021 9:56 AM EDT) Pathologist [facility] HPV mRNA E6/E7 rflx Not Detected Not Detected [employer] [facility] Comment: Methodology: Host Hostess-Mediated Amplification This assay detects E6/E7 viral messenger RNA (mRNA) from 14 high-risk HPV types (16,18,31,33,35,39,45,51,52,56,58,59,66,68). The analytical performance characteristics of this assay have been determined by [employer] The modifications have not been cleared or approved by the FDA. This assay has been validated pursuant to the CLIA regulations and is used for clinical purposes. For additional information, please refer to http://education.[employer]/faq/KUG786j1 (This link if provided for information/ educational purposes only.) THIS TEST WAS PERFORMED AT: [facility] [address] [place], [place] ??[phone] MURRAY GREY MD 02/26/2021 9:56 AM EDT us Radha Connelly HISTORICAL/NON ORDERABLE LABS Fi nal Result [facility] [address] * Mammography Report 1 (07/21/2020 8:38 AM EST) Anatomical Region Laterality Modality Breast Bilateral Mammography 07/21/2020 8:38 AM EST Narrative 07/23/2020 12:47 PM EST Refer to the Notes tab for result details Legacy Procedure: Mammography Report 1 Procedure Note Provider, Aisha, - 11/22/2022 Refer to the Notes tab for result details Legacy Procedure: Mammography Report 1 us Historical Provider MD SALAZAR BI PROCEDURES Final R esult from Last 3 Months or Most Recently Relevant to Health Maintenance Insurance [facility] MEDICAID STAND ADULT
--- OUTSIDE RECORDS SUMMARY | 2025-01-17 09:34 | XMS_ITS | Clinical Summary ---
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
--- NOTE | 2025-01-17 09:42 | A.OFFVIS_ITS ---
Intake Visit Reasons: 4m/US(set) Intake Note: Patient presents today for follow up on: kidney stones and ultrasound results Imaging Completed:12/20/24 Urology Medications: vitamin b6 Blood Thinner: none Armature Winder Helper Repair Required: Yes Armature Winder Helper Repair Services: Armature Winder Helper Repair Present Armature Winder Helper Repair Name: Sánchez Kline Accompanied by: Self / Same As Patient Allergies atorvastatin Adverse Reaction (Unknown, Verified 01/17/25 09:49) dizziness,blurry vision Medication List - Last Reconciled 01/17/25 by AKSHAT Bruner pyridoxine (vitamin B6) 50 mg PO DAILY 90 days sennosides (senna) 17.2 mg (2 x 8.6 mg) PO BEDTIME PRN [walker with seat and wheels walker with seat and wheels please] HPI Comments Details: Mary is a pleasant 54 year old [place]-speaking female patient of Dr. Barrow. She has a past medical history of nephrolithiasis, obesity, anxiety, sleep apnea, and hypercholesteremia. She presents to the office today for follow-up. Of note, patient was seen approximately 4 months ago as a new patient for her longstanding history of nephrolithiasis at which time a renal ultrasound was ordered for further assessment evaluation. These results were reviewed and communicated with the patient today. 12/23 bilateral kidneys with no evidence of renal obstruction. Bilateral renal calculi measuring up to 3 mm. Bilateral sim ple renal cysts measuring up to 1.9 cm on the right. When asked she currently denies any bothersome urinary issues. She reports be happy with current voiding parameters. She reports compliance with vitamin B6 as prescribed in discusses attempting to drink plenty of fluid daily however at times feels this is difficult as she has recently undergone a gastric who sleeve approximately one year ago. In office urinalysis results reviewed with the patient today. We discussed importance of adequate hydration relation to nephrolithiasis as well as overall health and well-being. She reports compliance with vitamin B6. She denies urinary urgency, urinary frequency, incontinence, nocturia, hematuria, dysuria, foul smelling urine, changes to urinary stream, flank pain, fever, and or chills. She is happy with her current voiding parameters. She otherwise offers no other issues or concerns at this time. [facility] Medical History Physical exam Kidney stones Screen for colon cancer Pain of both elbows Abdominal lump UTI (urinary tract infection) Right elbow pain Right shoulder pain Screening for hypothyroidism Right flank pain Left knee pain Right knee pain Eye exam, routine Potential exposure to STD Encounter for annual routine gynecological examination Right knee pain Screening due Morbid obesity Anxiety Sleep apnea Hyperkalemia History of kidney stones Pap test, as part of routine gynecological examination Lower back pain Pure hypercholesterolemia Surgical History S/P laparoscopic sleeve gastrectomy History of bladder repair surgery History of ureterostomy History of extraction of renal calculus History of endometrial ablation History of section History of tubal ligation Family History Father Liver cancer Mother CVD (cardiovascular disease) Hypertension Social History Household Members: Family Housing: Apartment Are you a primary career services director to a significant other at home: Yes (mother, aunt will assist post-op) Do you presently have visiting nurse or other home services: No Alcohol intake: never Patient Tobacco Use Status: Never used Tobacco e-Cigarette/Vaping Use: Never Used Second Hand Smoke Exposure: No service: No Current occupational status: employed Current occupational exposures/hazards: No Cognitive needs: No Hearing needs: No Vision needs: Yes Review of Systems Const Reports no additional complaints Eyes Reports no additional complaints ENT Reports no additional complaints Card Reports as per HPI Resp Reports no additional complaints GI Reports as per HPI Reports as per HPI Musc Reports no additional complaints Neuro Reports no additional complaints Psych Reports no additional complaints Endo Reports no additional complaints Aller/Immun Reports no additional complaints Physical Exam Const General: cooperative, healthy appearing, comfortable, no acute distress, well developed, alert and awake Orientation/consciousness: patient oriented x3 Limitations: no limitations HEENT Head: Yes normal to inspection, Yes normocephalic and Yes atraumatic Ears: hearing grossly normal bilaterally Eyes General: appearance normal, both eyes and all related structures Neck Neck: Yes normal visual inspection and Yes trachea midline Chest Chest palpation & inspection: normal inspection of the chest Resp Effort & Inspection: normal respiratory effort and able to speak in complete sen tences Cardio Rate: regular rate GI Inspection: Yes normal to inspection General: Yes no CVA tenderness Back/Spine/Pelvis Back: no CVA tenderness Skin General skin exam: no rashes or lesions noted Neuro General: patient oriented x3 Extrem General: Yes normal to inspection Psych Appearance: grossly normal and well kempt Mental Status: mental status grossly normal Speech and movement: Normal speech and movement present and Clear speech present Affect: normal affect Attitude: cooperative Thought process: Normal thought process present Thought content: Normal thought content present Insight: Fair insight present (Psych) Judgement: Fair judgement present (Psych) Results AMB Urinalysis, Automated UA Leukoctes 0 Nicole/uL Last Edit by [employer] on 01/17/25 10:00 UA Nitrite Negative Last Edit by [employer] on 01/17/25 10:00 UA Urobilinogen 0.2 mg/dL Last Edit by [employer] on 01/17/25 10:00 UA Protein 0 mg/dL Last Edit by [employer] on 01/17/25 10:00 UA pH 7.0 Last Edit by [employer] on 01/17/25 10:00 UA Blood 0 Stephan/uL Last Edit by [employer] on 01/17/25 10:00 UA Specific [place] 1.015 Last Edit by [employer] on 01/17/25 10:00 UA Ketone Negative Last Edit by [employer] on 01/17/25 10:00 UA Bilirubin 0 mg/dL Last Edit by [employer] on 01/17/25 10:00 UA Glucose 0 mg/dL Last Edit by [employer] on 01/17/25 10:00 Results Reviewed Results Reviewed: Date of Service: 12/20/24 Procedure(s): US renal BI FINDINGS: Right kidney: Cortical medullary differentiation is maintained. Normal color flow by Doppler. Right renal simple cyst in the midportion measuring 1.9 x 1.6 x 1.6 cm. Right renal calculus at the inferior pole measuring 0.3 x 0.2 x 0.2 cm. Right renal calculus in the midpole region measuring 0.2 x 0.2 x 0.2 cm. No hydronephrosis. Right kidney size: 9.5 x 5.8 x 5.4 cm Left kidney: Cortical medullary differentiation is maintained. Normal color flow by Doppler. Left renal simple cyst in the midpole region measuring 1.2 x 1.1 x 1.1 cm. Left renal calculus in the lower pole measuring 0.2 x 0.1 x 0.1 cm. Left renal calculus in the midpole region measuring 0.3 x 0.2 x 0.2 cm. Left renal calculus in the midpole region measuring 0.3 x 0.2 x 0.2 cm. No hydronephrosis. Left kidney size: 8.4 x 4.9 x 4.2 cm IMPRESSION: 1. No evidence of renal obstruction. 2. Bilateral renal calculi measuring up to 0.3 cm. 3. Bilateral simple renal cysts measuring up to 1.9 cm on the right. Assessment & Plan Assessment & Plan (1) Kidney stones: Comment: Hx Code(s): N20.0 - Calculus of kidney Category: Medical (2) Renal cyst: Code(s): N28.1 - Cyst of kidney, acquired Category: Medical Plan In office urinalysis results reviewed with the patient today; as noted above. Recent renal ultrasound results reviewed with the patient today; as noted above. We discussed at length the importance of adequate hydration relation to nephrolithiasis as well as overall health and well-being. Will continue with surveillance monitoring at this time. Continue vitamin B6. We discussed adding 1 oz of lemon juice to water daily. We discussed further metabolic workup to include Litholink and labs. She currently denies any bothersome urinary issues. She reports be happy with current voiding parameters. Will obtain renal ultrasound in 6 months. Follow-up in 6 months with imaging to be completed prior; or sooner with any issues, concerns, and or questions. Orders: Orders AMB Urinalysis Automated Today Z13.9 - Encounter for screening, unspecified US renal BI 6 Months N20.0 - Calculus of kidney Patient Instructions: The patient had an opportunity to ask questions regarding the treatment plan. All questions were answered. Physical exam, labs, and imaging were discussed and reviewed in detail. As well as risks, benefits, and discussion of treatment choices. No major barriers to understanding were identified. The patient expressed understanding and agreement with the above treatment plan. The patient was made aware they should contact our office by phone for worsening of their current condition, the appearance of new symptoms, or with any questions or concerns. Compliance is encouraged with any medications and follow up testing that is ordered. It is a privilege to be allowed the opportunity to participate in? your urological care.? Again, if you have any questions or concerns If you have any questions or concerns please do not hesitate to contact me. The office is [phone]. This note is constructed using voice recognition software. While every effort has been made to ensure accuracy sole cutter errors may have been included. Yours sincerely, AKSHAT Bruner Coding Level of Care Code Est Pt Level 3 (90379) Complex EM visit Add On G2211 Diagnoses Kidney stones N20.0 Renal cyst N28.1
== END 2025-01-17 09:58 | disposition home or self-care (01) ==
LOC: HO.HUSH 09:00
PROVIDERS: PCP Internal Medicine; Visit Provider Nurse Practitioner Family
DX: N20.0 Calculus of kidney (principal); N28.1 Cyst of kidney, acquired; Z13.9 Encounter for screening, unspecified
CPT/HCPCS: 99213; G2211

== ENCOUNTER → 2025-01-17 09:00 | Outpatient (BNVA) | payer OTHER, SELFPAY | PROVIDERS: PCP Internal Medicine; Visit Provider Nurse Practitioner Family | DX: N20.0 Calculus of kidney (principal); N28.1 Cyst of kidney, acquired | CPT/HCPCS: 81003; 99212 ==

== ENCOUNTER 2025-07-10 13:02 | Outpatient (REF) | payer OTHER, SELFPAY ==
--- NOTE | ~2025-07-10 | US_ITS ---
EXAMINATION: US RETROPERITONEAL LIMITED (RENAL ONLY) CLINICAL INFORMATION: Calculus of kidney. COMPARISON: Ultrasound kidney 12/20/2024 TECHNIQUE: Seen imaging of kidneys is performed. FINDINGS: RIGHT KIDNEY: 8.8 x 5.2 x 4.8 cm (SAG x AP x TRV). The kidney is normal in size, contour, and echogenicity. Renal cortical thickness is normal. There is a echogenic stone in the lower pole measuring 0.6 x 0.4 x 7.7 cm an echogenic stone upper pole measuring 0.4 x 0.3 0.4 cm. There is anechoic cyst in upper/mid pole laterally measuring 1.6 x 1.4 x 1.3 cm. There is no hydronephrosis. LEFT KIDNEY: 7.6 x 3 0.0, 4.0 cm (SAG x AP x TRV). The kidney is normal in size, contour, and echogenicity. Renal cortical thickness is normal. There is an echogenic stone midpole measuring 0.4 x 0.5 x 0.5 cm. An anechoic cyst mid pole laterally measures 1.4 x 1.2 x 1.5 cm.. No hydronephrosis seen. US/US renal BI IMPRESSION: Bilateral nonobstructive echogenic renal calculi. There are bilateral renal cysts.. Electronically signed by: Jose J Fernandez MD 07/10/2025 02:16 PM EST
--- OUTSIDE RECORDS SUMMARY | 2025-07-10 15:09 | XMS_ITS | Clinical Summary ---
Author Organization [facility] ity Address [address] [place] [address] Care Team Providers Care Superintendent Generating Plant Name Role Phone Unavailable Primary Care Provider [...] 2020 Zoster Vaccines (1 of 2) 2020 Depression Screening 08/31/2024 COVID-19 Vaccine ( - 2023-2 5 season) 2025 Influenza Vaccine (#1) 2025 RSV Immunization Adult Patie nts (1 - 1-dose 75+ series) 2045 HIB [...]
--- OUTSIDE RECORDS SUMMARY | 2025-07-10 15:09 | XMS_ITS | Clinical Summary ---
Author Organization [facility] Address [address] [place] [address] Care Team Providers Care Photographic Process Screen Maker Name Role Phone Unavailable Primary Care Provider Unavailabl e Allergies No known active allergies Medications ibuprofen 600 MG tabletIndicatio ns:Pain, dental,Periodon dione disease,Seconda ry dental caries Take 1 tablet (600 mg) by mouth 3 times daily. 30 tablet Active Additional Information Patient not taking.Reported on 12/22/2024 acetaminophen (Tylenol 8 Hour) 650 MG ER tabletIndicatio ns:Pain, dental,Secondar y dental caries,Periodon dione disease Take 1 tablet (650 mg) by mouth every 8 (eight) hours if needed for mild pain. Do not crush, chew, or split. 30 tablet Active Active Problems Problem Noted Date Diagnosed Date Pain, dental 12/14/2024 Periodontal disease 12/14/2024 Secondary dental caries 12/14/2024 Social History Tobacco Use Types Packs/Day Years [...] Care Team (Late st Contact Info) Description 07/18/2025 8:45 AM EST Office Visit [facility] [address] [place] [address] Janie King Health Maintenance Due Date Last Done Comments [...] COVID-19 Vaccine (1 - 2023-2 5 season) 2025 Influenza Vaccine (#1) 2025 Tobacco Screening 12/22/2025 12/22/2024 Cervical Cancer Screening [...] Procedure Name Priority Date/Time Associated Diagnosis Comments PANORAMIC RADIOGRAPHIC IMAGE Routine 12/14/2024 1:00 PM EDT [facility] HISTORICAL [...] 16 18/45 (02/26/2021 9:56 AM EDT) Pathologist [facility] HPV mRNA E6/E7 rflx Not Detected Not Detected [facility] Comment: Methodology: Mitten Sewer-Mediated Amplification This assay detects E6/E7 viral messenger RNA (mRNA) from 14 high-risk HPV types (16,18,31,33,35,39,45,51,52,56,58,59,66,68). The analytical performance characteristics of this assay have been determined by [employer]. The modifications have not been cleared or approved by the FDA. This assay has been validated pursuant to the CLIA regulations and is used for clinical purposes. For additional information, please refer to http://education.[employer]/faq/LPC617z2 (This link if provided for information/ educational purposes only.) THIS TEST WAS PERFORMED AT: [facility] [address] [place] [address],[place] [address] MURRAY GREY MD 02/26/2021 9:56 AM EDT us Radha Connelly HISTORICAL/NON ORDERABLE LABS Fi nal Result [facility] [address] * Mammography Report 1 (07/21/2020 8:38 AM EST) Anatomical Region Laterality Modality Breast Bilateral Mammography 07/21/2020 8:38 AM EST Narrative 07/23/2020 12:47 PM EST Refer to the Notes tab for result details Legacy Procedure: Mammography Report 1 Procedure Note Provider, MD Aisha - 11/22/2022 Refer to the Notes tab for result details Legacy Procedure: Mammography Report 1 Historical Provider IMG BI PROCEDURES Final R esult from Last 3 Months or Most Recently Relevant to Health Maintenance Insurance [facility] MEDICAID STAND ADULT
== END 2025-07-10 13:03 | disposition home or self-care (01) ==
LOC: HO.US 13:02
PROVIDERS: PCP Internal Medicine; Visit Provider Nurse Practitioner Family
DX: N20.0 Calculus of kidney (principal)
CPT/HCPCS: 76775

== ENCOUNTER → 2025-07-10 13:03 | Outpatient (BNV) | payer OTHER, SELFPAY | PROVIDERS: PCP Internal Medicine; Visit Provider Radiology Diagnostic Radiology | DX: N20.0 Calculus of kidney (principal); N28.1 Cyst of kidney, acquired | CPT/HCPCS: 76775 ==

== ENCOUNTER 2025-07-20 09:04 | Outpatient (AMB) | payer OTHER, SELFPAY ==
--- OUTSIDE RECORDS SUMMARY | 2025-07-18 08:45 | XMS_ITS | Encounter Summary ---
Author Organization [employer] [facility] Address [address] [place] [address] Care Team Providers Care Geneticist Name Role Phone Unavailable Primary Care Provider Unavailabl e Reason for Visit * Reason Comments Routine Cleaning Dental Pain Dental Exam Dental pain on the u pper right side Encounter Details Date Type Department Care Team (Late st Contact Info) Description 07/18/2025 8:45 AM EST Office Visit [facility] ADULT [facility] [address] [place] [address] Janie King Periodontal disease (Primary Dx); Dental calculus; Encounter for dental examination; Dental caries Social History Tobacco Use Types Packs/Day Years Used Date Smoking Tobacco: Never Passive Smoke Exposure: Never Smokeless Tobacco: Never Alcohol Use Standard Drinks/Week Comments Never 0 (1 standard drink = 0.6 oz pur e alcohol) Alcohol Answer Date Recorded Frequency of Alcohol Consumption Not on file 07/18/2025 Average Number of Drinks Not on file 025 How often do you have six or more drinks on one occasion? 0 07/18/2025 Comments Unknown Sex and Gender Information Value Date Recorded Sex Assigned at Female 06/30/2022 10:31 AM EDT Legal Sex Female 10:31 AM EDT Gender Identity Female 12/14/2024 9:37 AM EDT Sexual Orientation Straight 12/14/2024 9: 37 AM EDT documented as of this encounter Last Filed Vital Signs Vital Sign Reading Time Taken Comments Blood Pressure 120/78 07/18/2025 9:01 AM EST Pulse 69 07/18/2025 9:01 AM EST Temperature - - Respiratory Rate - - Oxygen Saturation - - Inhaled Oxygen Concentration - - Weight - - Height - - Body Mass Index - - documented in this encounter Progress Notes * Janie King - 07/18/2025 8:45 AM EST Patient ID: Mary Medina is a 54 y.o. female. Time Out: Timeout Date: 07/18/25 Location: [facility] Tooth: Maxilla and Mandible Procedure: Exam, X-rays, and Prophylaxis Verified the above with patient, assistant account manager, and provider. Confirmed via patient's chart, intraorally and by radiographs. Electrical Design Engineer: not applicable Medical Hx: Vitals: Blood pressure 120/78, pulse 69. Medications, Med Hx reviewed with patient and updated in chart. Treatment Provided Dental procedures in this visit D0150 - COMPREHENSIVE ORAL EVALUATION - NEW OR ESTABLISHED PATIENT D0220 - INTRAORAL - PERIAPICAL FIRST RADIOGRAPHIC IMAGE 2 (Completed) Service provider: Janie King [place] provider: Maria Esther Johnson DDS D1110 - PROPHYLAXIS - ADULT Full (Completed) Service provider: Janie King [place] provider: Maria Esther Johnson DDS D1330 - ORAL HYGIENE INSTRUCTIONS (Completed) Service provider: Janie King [place] provider: Maria Esther Johnson DDS D9450 - CASE PRESENTATION, DETAILED AND EXTENSIVE TREATMENT PLANNING (Completed) Service provider: Janie King Billing provider: Maria Esther Johnson DDS D0274 - BITEWINGS - 4 RADIOGRAPHIC IMAGES (Completed) Service provider: Janie King Billing provider: Maria Esther Johnson DDS D0230 - INTRAORAL - PERIAPICAL EACH ADDITIONAL RADIOGRAPHIC IMAGE (Completed) Service provider: Janie King Billing provider: Maria Esther Johnson DDS D0230 - INTRAORAL - PERIAPICAL EACH ADDITIONAL RADIOGRAPHIC IMAGE (Completed) Service provider: Janie King Billing provider: Maria Esther Johnson DDS Instruments Used: Ultrasonic Scalers, Prophy angle, and floss Fluoride: N/A Oral Cancer Screening: No lesions Head/Neck Exam: No Lesions Calculus: Heavy, Generalized, and Subgingival Plaque: Moderate and Generalized Stain: Light and Generalized Bleeding: Moderate and Generalized Gingiva: Perio Charting Completed, Bleeding on probing, and Recession- generalized OH: Poor Perio Chart: Completed Patient presents with periodontal disease. Calculus present Subgingivally, Supragingivally, and Generalized that can be seen radiographically. BOP: Generalized and Heavy Exudate: Not Present Mobility: 0 Generalized Probing Depths Range: 4 to 8 mm Recession: Generalized ranging from 1 to 4 mm. Gingiva: Inflamed and Erythematous Bone loss visible radiographically: Generalized Pre Authorization requested for SRP. SRP treatment needed to promote gingival health, arrest disease progression of periodontal disease and prevent tooth loss. Provider: Janie King Oral hygiene instructions provided to patient including brushing technique and flossing. Recommendations: [place] two times daily, modified glass technique, Floss daily, Electric toothbrush, Soft bristle toothbrush, [place] Tongue, Anti-sensitivity toothpaste Recall Frequency: 3 mo NV: Upon SRP approval Hygienist: Janie King RDH Cosigned by Maria Esther Johnson DDS at 07/18/2025 3:54 PM EST Associated attestation - Maria Esther Johnson DDS - 07/18/2025 3:54 PM EST I have reviewed the documentation and dental procedures made by the rendering provider, Janie King RDH, and approve their chart entries for this visit. Maria Esther Johnson DDS * Maria Esther Johnson DDS - 07/18/2025 8:45 AM EST Dental procedures in this visit D0120 - PERIODIC ORAL EVALUATION - ESTABLISHED PATIENT (Completed) Service provider: Maria Esther Johnson DDS Billing provider: Maria Esther Johnson DDS D0220 - INTRAORAL - PERIAPICAL FIRST RADIOGRAPHIC IMAGE 2 (Completed) Service provider: Janie King Billing provider: Maria Esther Johnson DDS D0180 - COMPREHENSIVE PERIODONTAL EVALUATION - NEW OR ESTABLISHED PATIENT (Completed) Service provider: Maria Esther Johnson DDS Billing provider: Maria Esther Johnson DDS D1110 - PROPHYLAXIS - ADULT Full (Completed) Service provider: Janie King Billing provider: Maria Esther Johnson DDS D1330 - ORAL HYGIENE INSTRUCTIONS (Completed) Service provider: Janie King Billing provider: Maria Esther Johnson DDS D9450 - CASE PRESENTATION, DETAILED AND EXTENSIVE TREATMENT PLANNING (Completed) Service provider: Janie King Billing provider: Maria Esther Johnson DDS D0274 - BITEWINGS - 4 RADIOGRAPHIC IMAGES (Completed) Service provider: Janie King Billing provider: Maria Esther Johnson DDS D0230 - INTRAORAL - PERIAPICAL EACH ADDITIONAL RADIOGRAPHIC IMAGE (Completed) Service provider: Janie King Billing provider: Maria Esther Johnson DDS D0230 - INTRAORAL - PERIAPICAL EACH ADDITIONAL RADIOGRAPHIC IMAGE (Completed) Service provider: Janie King Billing provider: Maria Esther Johnson DDS Patient ID: Mary Medina is a 54 y.o. female. Time Out: Timeout Date: 07/18/25 Location: [facility] Tooth: Maxilla and Mandible Procedure: Exam, X-rays, and Prophylaxis Verified the above with patient, assistant account manager, and provider. Confirmed via patient's chart, intraorally and by radiographs. Electrical Design Engineer: not applicable Chief Complaint Patient presents with Routine Cleaning Dental Pain Dental Exam Dental pain on the upper right side Medical Hx: Vitals: Blood pressure 120/78, pulse 69. Medical History[1] Medications: Encounter Medications[2] Objective HPI Soft Tissue Exam No findings documented this visit Head and Neck Exam: Lymph Nodes, Lips, Palate, Buccal Mucosa, Floor of Mouth, Tongue, Tonsils, Alveolar Ridges, Oropharynx, Salivary Ducts, and Vestibules - no significant findings observed OCS: negative Dental Exam Radiographic Interpretation: Associated radiographs for today's visit were reviewed and finding(s) were discussed with the patient. Findings include: calculus, caries, plaque, bone loss, inflammation of gums generalized, halitosis,poor OH Hard Tissue Exam: Decay noted - see charting and treatment plan Perio Dx: Generalized Chronic Periodontitis Stage: III Grade: B Reference tooth chart for additional findings. Oral Cancer Risk: Low Risk Oral Hygiene Instructions: [place] two times daily, modified glass technique, Floss daily, Soft bristle toothbrush, [place] Tongue Caries Risk Assessment: High- two or more risk factors Assessment/Plan Ext SRPs RPDs Patient tolerated procedure well, all questions answered and expressed understanding. Dismissed in good condition. NV: ext Bundle Person: Sendy Rashid Dentist: Maria Esther Johnson DDS [1] Past Medical History: Diagnosis Date Known health problems: none [2] Outpatient Encounter Medications as of 07/18/2025 Medication Sig Dispense Refill acetaminophen (Tylenol 8 Hour) 650 MG ER tablet Take 1 tablet (650 mg) by mouth every 8 (eight) hours if needed for mild pain. Do not crush, chew, or split. 30 tablet 0 ibuprofen 600 MG tablet Take 1 tablet (600 mg) by mouth 3 times daily. 30 tablet 0 No facility-administered encounter medications on file as of 07/18/2025. documented in this encounter Plan of Treatment Upcoming Encounters Date Type Department Care Team (Late st Contact Info) Description 01/16/2026 8:45 AM EDT Office Visit [facility] [address], [place] [id number] Janie King Scheduled Orders Name Type Priority Associated Diagnoses Orde r Schedule UL UL PERIODONTAL SCALING AND ROOT PLANING - 4 OR MORE TEETH PER QUADRANT Dental Routine [address] arting 07/18/2025 LL LL PERIODONTAL SCALING AND ROOT PLANING - 4 OR MORE TEETH PER QUADRANT Dental Routine [address] arting 07/18/2025 UR UR PERIODONTAL SCALING AND ROOT PLANING - 4 OR MORE TEETH PER QUADRANT Dental Routine [address] arting 07/18/2025 LR LR PERIODONTAL SCALING AND ROOT PLANING - 4 OR MORE TEETH PER QUADRANT Dental Routine [address] arting 07/18/2025 2 2 EXTRACTION, ERUPTED TOOTH OR EXPOSED ROOT (ELEVATION/FORCEPS REMOVAL) Dental Routine [address] arting 07/18/2025 31,19 31,19 MANDIBULAR PARTIAL DENTURE - RESIN BASE (INCLUDING, RETENTIVE/CLASPING MATERIALS, RESTS, AND TEETH) Dental Routine [address] arting 07/18/2025 10,2 10,2 MAXILLARY PARTIAL DENTURE - RESIN BASE (INCLUDING, RETENTIVE/CLASPING MATERIALS, RESTS, AND TEETH) Dental Routine [address] arting 07/18/2025 documented as of this encounter Procedures Procedure Name Priority Date/Time Associated Diagnosis Comments Full PROPHYLAXIS - ADULT Routine 025 8:45 AM EST PERIODIC ORAL EVALUATION - ESTABLISHED PATIENT Routine 07/18/2025 8:45 AM EST Periodontal disease Dental calculus Encounter for dental examination Dental caries ORAL HYGIENE INSTRUCTIONS Routine 2024 8:45 AM EST 2 INTRAORAL - PERIAPICAL FIRST RADIOGRAPHIC IMAGE Routine 07/18/2025 8:45 AM EST Periodontal disease Dental calculus Encounter for dental examination Dental caries INTRAORAL - PERIAPICAL EACH ADDITIONAL RADIOGRAPHIC IMAGE Routine 07/18/2025 8:45 AM EST INTRAORAL - PERIAPICAL EACH ADDITIONAL RADIOGRAPHIC IMAGE Routine 07/18/2025 8:45 AM EST COMPREHENSIVE PERIODONTAL EVALUATION - NEW OR ESTABLISHED PATIENT Routine 07/18/2025 8:45 AM EST Periodontal disease Dental calculus Encounter for dental examination Dental caries CASE PRESENTATION, DETAILED AND EXTENSIVE TREATMENT PLANNING Routine 07/18/2025 8:45 AM EST BITEWINGS - 4 RADIOGRAPHIC IMAGES Routine 07/18/2025 8:45 AM EST documented in this encounter Visit Diagnoses Diagnosis Periodontal disease- Primary Unspecified gingival and periodontal disease Dental calculus Accretions on teeth Encounter for dental examination Dental caries Unspecified dental caries documented in this encounter
--- NOTE | 2025-07-20 09:04 | MHC.OFFVIS ---
Intake Visit Reasons: 6M follow up/ US Intake Note: Patient is present for 6M/US Urology Medication:VITAMIN B6 Antibiotic Allergy:NONE Blood Thinner:NONE Health Care Specialist Required: No Allergies atorvastatin Adverse Reaction (Unknown, Verified 07/20/25 09:24) dizziness,blurry vision Medication List - Last Reconciled 07/20/25 by AKSHAT Bruner pyridoxine (vitamin B6) 50 mg PO DAILY 90 days sennosides (senna) 17.2 mg (2 x 8.6 mg) PO BEDTIME PRN [walker with seat and wheels walker with seat and wheels please] HPI Comments Details: Mary is a pleasant 54 year old Faroese-speaking female patient of Dr. Barrow. She has a past medical history of nephrolithiasis, obesity, anxiety, sleep apnea, and hypercholesteremia. She presents to the office today for follow-up. 07/25 bilateral kidneys are normal in size, contour, and echogenicity. Bilateral nonobstructing echogenic renal calculi noted. No hydronephrosis. There are bilateral renal cysts. In discussion with the patient today she does report ongoing episodes of back pain however is unsure if this is related to her history of back pain or nephrolithiasis. No CVA tenderness noted bilaterally however she does report pain to be over the right flank pain as well as down her entire vertebrae. She reports she had been compliant with vitamin B6 however has since ran out of medication. She endorses to be drinking plenty of water daily. She discusses her upcoming trip to [place] to visit her grandchildren. We did discuss obtaining CT KUB versus surveillance monitoring. Risks and benefits of these interventions were discussed. In office urinalysis results reviewed with the patient today. She denies urinary urgency, urinary frequency, incontinence, nocturia, hematuria, dysuria, foul smelling urine, changes to urinary stream, fever, and or chills. She is happy with her current voiding parameters. She otherwise offers no other issues or concerns at this time. [facility] Medical History Physical exam Kidney stones Screen for colon cancer Pain of both elbows Abdominal lump UTI (urinary tract infection) Right elbow pain Right shoulder pain Screening for hypothyroidism Right flank pain Left knee pain Right knee pain Eye exam, routine Potential exposure to STD Encounter for annual routine gynecological examination Right knee pain Screening due Morbid obesity Anxiety Sleep apnea Hyperkalemia History of kidney stones Pap test, as part of routine gynecological examination Lower back pain Pure hypercholesterolemia Surgical History S/P laparoscopic sleeve gastrectomy History of bladder repair surgery History of ureterostomy History of extraction of renal calculus History of endometrial ablation History of section History of tubal ligation Family History Father Liver cancer Mother CVD (cardiovascular disease) Hypertension Social History Household Members: Family Housing: Apartment Are you a primary animal care technician to a significant other at home: Yes (mother, aunt will assist post-op) Do you presently have visiting nurse or other home services: No Alcohol intake: never Patient Tobacco Use Status: Never used Tobacco e-Cigarette/Vaping Use: Never Used Second Hand Smoke Exposure: No service: No Current occupational status: employed Current occupational exposures/hazards: No Cognitive needs: No Hearing needs: No Vision needs: Yes Review of Systems Const Reports no additional complaints Eyes Reports no additional complaints ENT Reports no additional complaints Card Reports as per HPI Resp Reports no additional complaints GI Reports as per HPI Reports as per HPI Musc Reports no additional complaints Neuro Reports no additional complaints Psych Reports no additional complaints Endo Reports no additional complaints Aller/Immun Reports no additional complaints Physical Exam Const General: cooperative, healthy appearing, comfortable, no acute distress, well developed, alert and awake Orientation/consciousness: patient oriented x3 Limitations: language barrier HEENT Head: Yes normal to inspection, Yes normocephalic and Yes atraumatic Ears: hearing grossly normal bilaterally Eyes General: appearance normal, both eyes and all related structures Neck Neck: Yes normal visual inspection and Yes trachea midline Chest Chest palpation & inspection: normal inspection of the chest Resp Effort & Inspection: normal respiratory effort and able to speak in complete sentences Cardio Rate: regular rate GI Inspection: Yes normal to inspection General: Yes no CVA tenderness Back/Spine/Pelvis Back: no CVA tenderness Skin General skin exam: no rashes or lesions noted Neuro General: patient oriented x3 Extrem General: Yes normal to inspection Psych Appearance: grossly normal and well kempt Mental Status: mental status grossly normal Speech and movement: Normal speech and movement present and Clear speech present Affect: normal affect Attitude: cooperative Thought process: Normal thought process present Thought content: Normal thought content present Insight: Fair insight present (Psych) Judgement: Fair judgement present (Psych) Results AMB Urinalysis, Automated UA Leukoctes 0 Nicole/uL Last Edit by IVÁN Perry on 07/20/25 09:33 UA Nitrite Negative Last Edit by Shelby lEam CCM on 07/20/25 09:33 UA Urobilinogen 0.2 mg/dL Last Edit by Shelby Elam CCM on 07/20/25 09:33 UA Protein 15 mg/dL Last Edit by Shelby Elam [facility] on 07/20/25 09:33 UA pH 6.0 Last Edit by Shelby Elam [facility] on 07/20/25 09:33 UA Blood 0 Stephan/uL Last Edit by Shelby Elam CCM on 07/20/25 09:33 UA Specific Gaines 1.020 Last Edit by IVÁN Perry on 07/20/25 09:33 UA Ketone Negative Last Edit by Shelby Elam CCM on 07/20/25 09:33 UA Bilirubin 0 mg/dL Last Edit by Shelby Elam [facility] on 07/20/25 09:33 UA Glucose 0 mg/dL Last Edit by Shelby Elam [facility] on 07/20/25 09:33 Results Reviewed Results Reviewed: Date of Service: 07/10/25 Procedure(s): US renal BI FINDINGS: RIGHT KIDNEY: 8.8 x 5.2 x 4.8 cm (SAG x AP x TRV). The kidney is normal in size, contour, and echogenicity. Renal cortical thickness is normal. There is a echogenic stone in the lower pole measuring 0.6 x 0.4 x 7.7 cm an echogenic stone upper pole measuring 0.4 x 0.3 0.4 cm. There is anechoic cyst in upper/mid pole laterally measuring 1.6 x 1.4 x 1.3 cm. There is no hydronephrosis. LEFT KIDNEY: 7.6 x 3 0.0, 4.0 cm (SAG x AP x TRV). The kidney is normal in size, contour, and echogenicity. Renal cortical thickness is normal. There is an echogenic stone midpole measuring 0.4 x 0.5 x 0.5 cm. An anechoic cyst mid pole laterally measures 1.4 x 1.2 x 1.5 cm.. No hydronephrosis seen. IMPRESSION: Bilateral nonobstructive echogenic renal calculi. There are bilateral renal cysts. Assessment & Plan Assessment & Plan (1) Kidney stones: Comment: Hx Code(s): N20.0 - Calculus of kidney Category: Medical Plan In office urinalysis results with the patient today; as noted above. Most recent renal imaging results with the patient today; as noted above. We did discussed potential causes of pain patient is experiencing as well as further treatment options and risks and benefits of these treatment options. Will obtain CT KUB for further assessment evaluation. We discussed continuing to drink plenty of water daily in relation to nephrolithiasis as well as overall health and well-being. Restart vitamin B6 as discussed and prescribed. We discussed adding 1 oz of lemon juice to water daily. We did discussed worsening symptoms. She currently denies any bothersome urinary issues. Follow-up in 1-3 months with imaging to be completed prior; or sooner with any issues, concerns, and or questions. Orders: Orders CT kidney stone Today N20.0 - Calculus of kidney AMB Urinalysis Automated Today Z13.9 - Encounter for screening, unspecified Medications: Refilled pyridoxine (vitamin B6) 50 mg PO DAILY 90 tabs 1RF 90 days N20.0 - Calculus of kidney Patient Instructions: The patient had an opportunity to ask questions regarding the treatment plan. All questions were answered. Physical exam, labs, and imaging were discussed and reviewed in detail. As well as risks, benefits, and discussion of treatment choices. No major barriers to understanding were identified. The patient expressed understanding and agreement with the above treatment plan. The patient was made aware they should contact our office by phone for worsening of their current condition, the appearance of new symptoms, or with any questions or concerns. Compliance is encouraged with any medications and follow up testing that is ordered. It is a privilege to be allowed the opportunity to participate in? your urological care.? Again, if you have any questions or concerns If you have any questions or concerns please do not hesitate to contact me. The office is [phone]. This note is constructed using voice recognition software. While every effort has been made to ensure accuracy independent living specialist errors may have been included. Yours sincerely, AKSHAT Bruner Coding Level of Care Code Est Pt Level 3 (16139) Complex EM visit Add On G2211 Diagnoses Kidney stones N20.0
--- OUTSIDE RECORDS SUMMARY | 2025-07-20 11:01 | XMS_ITS | Clinical Summary ---
Author Organization [facility] Address [address] [place] [address] Care Team Providers Care Senior Credit Analyst Name Role Phone Unavailable Primary Care Provider Unavailabl e Allergies No known active allergies Medications ibuprofen 600 MG tabletIndication s:Pain, dental,Periodont al disease,Secondar y dental caries Take 1 tablet (600 mg) by mouth 3 times daily. 30 tablet 12/14/2024 Active acetaminophen (Tylenol 8 Hour) 650 MG ER tabletIndication s:Pain, dental,Secondary dental caries,Periodont al disease Take 1 tablet (650 mg) by mouth every 8 (eight) hours if needed for mild pain. Do not crush, chew, or split. 30 tablet 12/22/2024 Active Active Problems Problem Noted Date Diagnosed Date Urinary incontinence 07/18/2025 Pain, dental 12/14/2024 Periodontal disease 12/14/2024 Secondary dental caries 12/14/2024 Encounters Date Type Department Care Team Description 07/18/2025 8:45 AM EST Office Visit [facility] [address] [place] [address] Janie King Periodontal disease (Primary Dx); Dental calculus; Encounter for dental examination; Dental caries from Last 3 Months Social History [...] Description 01/16/2026 8:45 AM EDT Office Visit [facility] [address] [place] [address] Janie King Health Maintenance Due Date Last Done Comments CT Colonography 1970 Colonoscopy 1970 Colorectal Cancer Screening 1970 Depression Screening 1970 FIT DNA/Cologuard 1970 FIT 1970 FOBT 1970 HIV Screening 1970 SDOH Screening 1970 Sigmoidoscopy 1970 Disability Screening 1970 Hepatitis C Screening 1988 Hepatitis B Vaccines (1 of 3 - 19+ 3-dose series) 1989 Pap Smear 12/07/1991 Pneumococcal Vaccine: 50+ Years (1 of 1 - PCV) 2020 Zoster Vaccines (1 of 2) 2020 Mammogram 07/21/2022 07/21/2020 COVID-19 Vaccine (1 - 2024-2 6 season) 2025 Influenza Vaccine (#1) 2025 Dental Oral Exam 01/16/2026 07/18/2025, 12/23/2016 Dental Prophylaxis 01/16/2026 07/18/2025 Cervical Cancer Screening 02/26/2026 HPV/Cotest 02/26/2026 02/26/2021, 02/26/2021 Alcohol/Substance Use Screening 07/18/2026 07/18/2025 Tobacco Screening 07/18/2026 07/18/2025 Dental X-Ray: Bitewings 07/19/2026 07/18/20, 12/23/2016 Dental X-Ray: Full Mouth 12/16/2027 025, 01/22/2018, [...] Procedure Name Priority Date/Time Associated Diagnosis Comments COMPREHENSIVE PERIODONTAL EVALUATION - NEW OR ESTABLISHED PATIENT Routine 07/18/2025 8:45 AM EST Periodontal disease Dental calculus Encounter for dental examination Dental caries PERIODIC ORAL EVALUATION - ESTABLISHED PATIENT Routine 07/18/2025 8:45 AM EST Periodontal disease Dental calculus Encounter for dental examination Dental caries BITEWINGS - 4 RADIOGRAPHIC IMAGES Routine 07/18/2025 8:45 AM EST CASE PRESENTATION, DETAILED AND EXTENSIVE TREATMENT PLANNING Routine 07/18/2025 8:45 AM EST ORAL HYGIENE INSTRUCTIONS Routine 07/18/2025 8:45 AM EST Full PROPHYLAXIS - ADULT Routine 07/18/2025 8:45 AM EST INTRAORAL - PERIAPICAL EACH ADDITIONAL RADIOGRAPHIC IMAGE Routine 07/18/2025 8:45 AM EST INTRAORAL - PERIAPICAL EACH ADDITIONAL RADIOGRAPHIC IMAGE Routine 07/18/2025 8:45 AM EST 2 INTRAORAL - PERIAPICAL FIRST RADIOGRAPHIC IMAGE Routine 07/18/2025 8:45 AM EST Periodontal disease Dental calculus Encounter for dental examination Dental caries PANORAMIC RADIOGRAPHIC IMAGE Routine 12/14/2024 1:00 PM EDT ZZZ HISTORICAL HPV E6/E7 RFLX ABDI 16 Routine 02/26/2021 9:56 AM EDT MAMMOGRAM GENERIC Routine 07/21/2020 8:3 8 AM EST from Last 3 Months or Most Recently Relevant to Health Maintenance Results * HPV E6/E7 RFLX ABDI 16 18/45 (02/26/2021 9:56 AM EDT) HPV mRNA E6/E7 rflx Not Detected Not Detected [facility] Comment: Methodology: Senior Office Support Assistant Sosa-Mediated Amplification This assay detects E6/E7 viral messenger RNA (mRNA) from 14 high-risk HPV types (16,18,31,33,35,39,45,51,52,56,58,59,66,68). The analytical performance characteristics of this assay have been determined by [employer]. The modifications have not been cleared or approved by the FDA. This assay has been validated pursuant to the CLIA regulations and is used for clinical purposes. For additional information, please refer to http://education.Groupiter/faq/HHH734u4 (This link if provided for information/ educational purposes only.) THIS TEST WAS PERFORMED AT: [facility] [address] [place] [address] [address],[place] [address] MURRAY GREY MD 02/26/2021 9:56 AM EDT Radha Connelly HISTORICAL/NON ORDERABLE LABS Fi nal Result [facility] [address] * Mammography Report 1 (07/21/2020 8:38 AM EST) Anatomical Region Laterality Modality Breast Bilateral Mammography 07/21/2020 8:38 AM EST Narrative 07/23/2020 12:47 PM EST Refer to the Notes tab for result details [facility] Procedure: Mammography Report 1 Procedure Note ProviderAisha MD - 11/22/2022 Refer to the Notes tab for result details [facility] Procedure: Mammography Report 1 us Historical Provider IMMarv BI PROCEDURES Final R esult from Last 3 Months or Most Recently Relevant to Health Maintenance Insurance [facility] MEDICAID STAND ADULT
== END 2025-07-20 09:38 | disposition home or self-care (01) ==
LOC: HO.HUSH 09:04
PROVIDERS: PCP Internal Medicine; Visit Provider Nurse Practitioner Family
DX: N20.0 Calculus of kidney (principal); Z13.9 Encounter for screening, unspecified
CPT/HCPCS: 99213

== ENCOUNTER → 2025-07-20 09:04 | Outpatient (BNVA) | payer OTHER, SELFPAY | PROVIDERS: PCP Internal Medicine; Visit Provider Nurse Practitioner Family | DX: N20.0 Calculus of kidney (principal) | CPT/HCPCS: 81003; 99212 ==

== ENCOUNTER 2025-07-21 08:59 | Outpatient (REF) | payer OTHER, SELFPAY ==
--- OUTSIDE RECORDS SUMMARY | 2025-07-18 08:45 | XMS_ITS | Encounter Summary ---
Author Organization [employer] [facility] Address [address] [place] [address] Care Team Providers Care Private Eye Name Role Phone Unavailable Primary Care Provider Unavailabl e Reason for Visit * Reason Comments Routine Cleaning Dental Pain Dental Exam Dental pain on the u pper right side Encounter Details Date Type Department Care Team (Late st Contact Info) Description 07/18/2025 8:45 AM EST Office Visit [facility] ADULT D[facility] [address] [place] [address] Janie King Periodontal disease (Primary Dx); Dental [...] female. Time Out: Timeout Date: 07/18/25 Location: [facility] Tooth: Maxilla and Mandible Procedure: Exam, X-rays, and Prophylaxis Verified the above with patient, dental assistant medical assistant, and provider. Confirmed via patient's chart, intraorally and by radiographs. High School Biology Teacher: not applicable Medical Hx: Vitals: Blood pressure [...] patient including brushing technique and flossing. Recommendations: [place] two times daily, modified glass technique, Floss daily, Electric toothbrush, Soft bristle toothbrush, [place] Tongue, Anti-sensitivity toothpaste Recall Frequency: 3 mo [...] female. Time Out: Timeout Date: 07/18/25 Location: [facility] Tooth: Maxilla and Mandible Procedure: Exam, X-rays, and Prophylaxis Verified the above with patient, dental assistant medical assistant, and provider. Confirmed via patient's chart, intraorally and by radiographs. High School Biology Teacher: not applicable Chief Complaint Patient presents with [...] Cancer Risk: Low Risk Oral Hygiene Instructions: [place] two times daily, modified glass technique, Floss daily, Soft bristle toothbrush, [place] Tongue Caries Risk Assessment: High- two or more risk factors Assessment/Plan Ext SRPs RPDs Patient tolerated procedure well, all questions answered and expressed understanding. Dismissed in good condition. NV: ext Hydrographic Surveyor: Sendy Rashid Dentist: Maria Esther Johnson DDS [...] Description 01/16/2026 8:45 AM EDT Office Visit [facility] [address] [place], [place] [phone] Janie King Scheduled Orders Name Type Priority [...]
--- NOTE | ~2025-07-21 | XR_ITS ---
EXAMINATION: XR CERVICAL SPINE CLINICAL INFORMATION: M54.2 - Cervicalgia COMPARISON: None available. TECHNIQUE: AP lateral and atlantoodontoid views FINDINGS: Craniocervical junction is intact. Normal alignment. Small marginal osteophyte formation and endplate sclerosis and decreased intervertebral disc height at C5-6 and C6-7 levels. No lytic or blastic lesions. XR/XR cervical spine 3V IMPRESSION: Cervical spondylosis C5-6 and C6-7. EXAMINATION: XR THORACIC SPINE CLINICAL INFORMATION: M54.6 -pain in the thoracic spine COMPARISON: Correlated to chest x-ray dated July 20, 2023. TECHNIQUE: AP lateral and swimmer's projection. FINDINGS: S-shaped curvature of the lower thoracic and thoracolumbar spine. Multilevel marginal osteophyte formation and endplate sclerosis decreased intervertebral disc height throughout the axial skeleton. No acute cortical disruption or gross malalignment. No lytic or blastic lesions. Vascular clips in the left upper quadrant abdomen IMPRESSION: Scoliosis and spondylosis, lower thoracic and thoracolumbar spine. EXAMINATION: XR LUMBOSACRAL SPINE CLINICAL INFORMATION: M54.50 -low back pain, unspecified. COMPARISON: April 13, 2019. TECHNIQUE: AP and lateral views FINDINGS: Multilevel endplate sclerosis and small marginal osteophyte formation with decreased intervertebral disc height throughout the axial skeleton. Levoconvex curvature at the lower lumbar spine apex at L4. Facet joint hypertrophy at L5-S1 mostly on the right side. Grade 1 retrolisthesis at L3-4. No acute cortical disruption. No lytic or blastic lesions. Degenerative changes in both hips pronounced on the left side. IMPRESSION: Multilevel spondylosis resulting in an levoconvex curvature/scoliosis at L4 and grade 1 retrolisthesis L3-4. Osteoarthritis/osteoarthrosis, left greater than the right hip. Electronically signed by: Korey Mejia MD 07/21/2025 09:46 AM EST
--- NOTE | ~2025-07-21 | XR_ITS ---
EXAMINATION: XR CERVICAL SPINE CLINICAL INFORMATION: M54.2 - Cervicalgia COMPARISON: None available. TECHNIQUE: AP lateral and atlantoodontoid views FINDINGS: Craniocervical junction is intact. Normal alignment. Small marginal osteophyte formation and endplate sclerosis and decreased intervertebral disc height at C5-6 and C6-7 levels. No lytic or blastic lesions. XR/XR thoracic spine 3V IMPRESSION: Cervical spondylosis C5-6 and C6-7. EXAMINATION: XR THORACIC SPINE CLINICAL INFORMATION: M54.6 -pain in the thoracic spine COMPARISON: Correlated to chest x-ray dated July 20, 2023. TECHNIQUE: AP lateral and swimmer's projection. FINDINGS: S-shaped curvature of the lower thoracic and thoracolumbar spine. Multilevel marginal osteophyte formation and endplate sclerosis decreased intervertebral disc height throughout the axial skeleton. No acute cortical disruption or gross malalignment. No lytic or blastic lesions. Vascular clips in the left upper quadrant abdomen IMPRESSION: Scoliosis and spondylosis, lower thoracic and thoracolumbar spine. EXAMINATION: XR LUMBOSACRAL SPINE CLINICAL INFORMATION: M54.50 -low back pain, unspecified. COMPARISON: April 13, 2019. TECHNIQUE: AP and lateral views FINDINGS: Multilevel endplate sclerosis and small marginal osteophyte formation with decreased intervertebral disc height throughout the axial skeleton. Levoconvex curvature at the lower lumbar spine apex at L4. Facet joint hypertrophy at L5-S1 mostly on the right side. Grade 1 retrolisthesis at L3-4. No acute cortical disruption. No lytic or blastic lesions. Degenerative changes in both hips pronounced on the left side. IMPRESSION: Multilevel spondylosis resulting in an levoconvex curvature/scoliosis at L4 and grade 1 retrolisthesis L3-4. Osteoarthritis/osteoarthrosis, left greater than the right hip. Electronically signed by: Korey Mejia MD 07/21/2025 09:46 AM EST
--- NOTE | ~2025-07-21 | XR_ITS ---
EXAMINATION: XR CERVICAL SPINE CLINICAL INFORMATION: M54.2 - Cervicalgia COMPARISON: None available. TECHNIQUE: AP lateral and atlantoodontoid views FINDINGS: Craniocervical junction is intact. Normal alignment. Small marginal osteophyte formation and endplate sclerosis and decreased intervertebral disc height at C5-6 and C6-7 levels. No lytic or blastic lesions. XR/XR lumbar spine 2-3V IMPRESSION: Cervical spondylosis C5-6 and C6-7. EXAMINATION: XR THORACIC SPINE CLINICAL INFORMATION: M54.6 -pain in the thoracic spine COMPARISON: Correlated to chest x-ray dated July 20, 2023. TECHNIQUE: AP lateral and swimmer's projection. FINDINGS: S-shaped curvature of the lower thoracic and thoracolumbar spine. Multilevel marginal osteophyte formation and endplate sclerosis decreased intervertebral disc height throughout the axial skeleton. No acute cortical disruption or gross malalignment. No lytic or blastic lesions. Vascular clips in the left upper quadrant abdomen IMPRESSION: Scoliosis and spondylosis, lower thoracic and thoracolumbar spine. EXAMINATION: XR LUMBOSACRAL SPINE CLINICAL INFORMATION: M54.50 -low back pain, unspecified. COMPARISON: April 13, 2019. TECHNIQUE: AP and lateral views FINDINGS: Multilevel endplate sclerosis and small marginal osteophyte formation with decreased intervertebral disc height throughout the axial skeleton. Levoconvex curvature at the lower lumbar spine apex at L4. Facet joint hypertrophy at L5-S1 mostly on the right side. Grade 1 retrolisthesis at L3-4. No acute cortical disruption. No lytic or blastic lesions. Degenerative changes in both hips pronounced on the left side. IMPRESSION: Multilevel spondylosis resulting in an levoconvex curvature/scoliosis at L4 and grade 1 retrolisthesis L3-4. Osteoarthritis/osteoarthrosis, left greater than the right hip. Electronically signed by: Korey Mejia MD 07/21/2025 09:46 AM EST
[2025-07-21 09:14] LABS: MANUAL DIFF FLAG NO
--- OUTSIDE RECORDS SUMMARY | 2025-07-21 09:18 | XMS_ITS | Clinical Summary ---
Author Organization [facility] Address [address] [place] [address] Care Team Providers Care Prop Worker Name Role Phone Unavailable Primary Care Provider [...] Description 07/18/2025 8:45 AM EST Office Visit [facility] [address] [place] [address] Janie King Periodontal disease (Primary Dx); Dental [...] Description 01/16/2026 8:45 AM EDT Office Visit [facility] [address] [place] [address] Janie King Health Maintenance Due Date Last [...] mRNA E6/E7 rflx Not Detected Not Detected [facility] Comment: Methodology: Salon Leader-Mediated Amplification This assay detects E6/E7 viral messenger RNA (mRNA) from 14 high-risk HPV types (16,18,31,33,35,39,45,51,52,56,58,59,66,68). The analytical performance characteristics of this assay have been determined by [employer]. The modifications have not been cleared or approved by the FDA. This assay has been validated pursuant to the CLIA regulations and is used for clinical purposes. For additional information, please refer to http://education.BET Information Systems/faq/PBZ056k0 (This link if provided for information/ educational purposes only.) THIS TEST WAS PERFORMED AT: [facility] [address] [place] [address] [address],[place] [address] MURRAY GREY MD 02/26/2021 9:56 AM EDT Radha Connelly HISTORICAL/NON ORDERABLE LABS Fi nal Result [facility] [address] * Mammography Report 1 (07/21/2020 8:38 [...] Most Recently Relevant to Health Maintenance Insurance [facility] MEDICAID STAND ADULT
--- OUTSIDE RECORDS SUMMARY | 2025-07-21 09:18 | XMS_ITS | Clinical Summary ---
Author Organization [facility] Address [address] [place] [address] Care Team Providers Care Recovery Rn Name Role Phone Unavailable Primary Care Provider [...] 2) 2020 Depression Screening 08/31/2024 COVID-19 Vaccine (1 - 2024-2 6 season) 2025 Influenza Vaccine (#1) 2025 RSV [...]
[2025-07-21 09:50] LABS: Hematocrit 38.9 % (37.0-47.0); Hemoglobin 13.0 g/dl (12.0-16.0); Imm Gran Abs Auto 0.01 X10*3/uL (0.00-0.03); Imm Gran Pct Auto 0.2 % (0.0-0.4); Lymphocytes Absolute Auto 2.1 X10*3/uL (1.2-4.9); Mean Corpuscular HGB Conc 33.4 g/dl (31.0-35.0); Mean Corpuscular Hemoglobin 28.8 pg (27.0-33.0); Mean Corpuscular Volume 86.1 fL (80.0-98.0); NRBC Abs Auto 0.000 X10*3/uL (0.0-0.012); NRBC Pct Auto 0.0 /100WBC (0.0-0.2); Platelet Count 220 X10*3/uL (160-400); Red Blood Count 4.52 X10*6/uL (4.20-5.50); White Blood Count 6.1 X10*3/uL (4.8-10.8)
[2025-07-21 11:10] LABS: Alanine Aminotransferase 16 U/L (0-31); Albumin Level 4.1 g/dL (3.5-5.0); Alkaline Phosphatase 96 U/L (39-117); Anion Gap 11 (12-20); Aspartate Amino Transferase 19 U/L (5-31); Blood Urea Nitrogen 14 mg/dL (9-16); Calcium 9.0 mg/dL (8.4-10.2); Carbon Dioxide 29 mmol/L (22-29); Chloride 109 mmol/L (96-108); Cholesterol 206 mg/dL (<200); Estimated Glomerular Filt Rate > 60; HDL Cholesterol 59 mg/dL (>40); Iron 87 mcg/dL (30-160); Percent Iron Saturation 35 % (15-50); Potassium 4.7 mmol/L (3.3-5.1); Sodium 144 mmol/L (135-145); Thyroid Stimulating Hormone 1.09 uIU/mL (0.32-4.0); Total Iron Binding Capacity 251 mcg/dL (228-428); Total Protein 6.5 g/dL (6.5-8.0); Triglycerides 70 mg/dL (<150); Unsaturated Iron Binding 164 ug/dL
[2025-07-21 11:13] LABS: Folate 12.4 ng/mL (> or = 4.0); Vitamin B12 285 pg/mL (200-900)
== END 2025-07-21 09:00 | disposition home or self-care (01) ==
LOC: HO.LAB 08:59
PROVIDERS: PCP Internal Medicine; Visit Provider Internal Medicine
DX: M54.2 Cervicalgia (principal); M54.6 Pain in thoracic spine; M54.50 Low back pain, unspecified; E78.5 Hyperlipidemia, unspecified; D64.9 Anemia, unspecified; E53.8 Deficiency of other specified B group vitamins; K76.0 Fatty (change of) liver, not elsewhere classified; E55.9 Vitamin D deficiency, unspecified; Z68.38 Body mass index [BMI] 38.0-38.9, adult
CPT/HCPCS: 36415; 72040; 72072; 72100; 80053; 80061; 82306; 82607; 82746; 83540; 84443; 85025

== ENCOUNTER → 2025-07-21 09:15 | Outpatient (BNV) | payer OTHER, SELFPAY | PROVIDERS: PCP Internal Medicine; Visit Provider Radiology Diagnostic Radiology | DX: M47.816 Spondylosis without myelopathy or radiculopathy, lumbar region (principal); M47.815 Spondylosis without myelopathy or radiculopathy, thoracolumbar region; M41.85 Other forms of scoliosis, thoracolumbar region; M47.812 Spondylosis without myelopathy or radiculopathy, cervical region | CPT/HCPCS: 72040; 72072; 72100 ==

== ENCOUNTER 2025-07-24 12:56 | Outpatient (AMB) | payer OTHER, SELFPAY ==
--- NOTE | 2025-07-24 13:17 | MHC.PC.OV ---
Vital Signs 07/24/25 13:19 Height 4 ft 6 in Weight 131 lb BMI 31.6 BP 100/60 Blood Pressure Location Lt brachial Position Sitting Pulse 58 Pulse Source Pulse Oximeter Temp 97.3 F Temp Source Temporal Artery Scan Pulse Oximetry (%) 98 Oxygen Delivery Method Room Air Intake Visit Reasons: PE- PHQ-9 needed. Intake Note: Patient is here today for a physical. Form Carpenter Required: No Diagrammer And Seamer: Not Required per policy Accompanied by: Self / Same As Patient Allergies atorvastatin Adverse Reaction (Unknown, Verified 07/24/25 13:51) dizziness,blurry vision Medication List - Last Reconciled 07/24/25 by Radha Poe MD pyridoxine (vitamin B6) 50 mg PO DAILY 90 days sennosides (senna) 17.2 mg (2 x 8.6 mg) PO BEDTIME PRN [walker with seat and wheels walker with seat and wheels please] Tobacco use date assessed: 07/24/25 Dental Screening Dental Screen Date: 07/24/25 Did you have a dental visit in the last 12 months?: Yes Did you have a dental problem in the last 6 months where you did not have access to dental care?: No Was dental information given to patient?: Patient has dentist HPI HPI Comments History of Present Illness Details The patient is a 54 year old individual presenting for an annual physical examination. The patient has a history of sleeve gastrectomy in 2023 and a bladder repair surgery. There is a known allergy to atorvastatin, which caused dizziness and blurred vision. The only medication mentioned is fluoxetine. The patient has a history of hypertension, though current blood pressure is noted to be good. The patient reports a lump on the wrist which has been present for approximately three years. Regarding health maintenance, the patient is due for a mammogram and colonoscopy. The patient did not receive the influenza vaccine this season and agrees to get it. The patient's last tetanus vaccine was in 2018. Pap smear was 2020. [facility] Medical History Physical exam Kidney stones Screen for colon cancer Pain of both elbows Abdominal lump UTI (urinary tract infection) Right elbow pain Right shoulder pain Screening for hypothyroidism Right flank pain Left knee pain Right knee pain Eye exam, routine Potential exposure to STD Encounter for annual routine gynecological examination Right knee pain Screening due Morbid obesity Anxiety Sleep apnea Hyperkalemia History of kidney stones Pap test, as part of routine gynecological examination Lower back pain Pure hypercholesterolemia Surgical History S/P laparoscopic sleeve gastrectomy History of bladder repair surgery History of ureterostomy History of extraction of renal calculus History of endometrial ablation History of section History of tubal ligation Family History Father Liver cancer Mother CVD (cardiovascular disease) Hypertension Social History Household Members: Family Housing: Apartment Are you a primary spiritual care coordinator to a significant other at home: Yes (mother, aunt will assist post-op) Do you presently have visiting nurse or other home services: No Alcohol intake: never Patient Tobacco Use Status: Never used Tobacco e-Cigarette/Vaping Use: Never Used Second Hand Smoke Exposure: No service: No Current occupational status: employed Current occupational exposures/hazards: No Cognitive needs: No Hearing needs: No Vision needs: Yes Questionnaire PHQ-9 Over the last 2 weeks, how often have you been bothered by any of the following problems? 1. Little interest or pleasure in doing things: not at all 2. Feeling down, depressed, or hopeless: not at all 3. Trouble falling or staying asleep, or sleeping too much: not at all 4. Feeling tired or having little energy: not at all 5. Poor appetite or overeating: not at all 6. Feeling bad about yourself - or that you are a failure or have let yourself or your family down: not at all 7. Trouble concentrating on things, such as reading the newspaper or watching television: not at all 8. Moving or speaking so slowly that other people could have noticed. Or the opposite - being so fidgety or restless that you have been moving around a lot more than usual: not at all 9. Thoughts that you would be better off or of hurting yourself in some way: not at all Total score: 0 Depression Screening Interpretation: Negative Depression Screening Done: Yes 46910 - PHQ-9 Billing: Yes Source: Developed by Drs. Bonifacio L. WillianSandy romero Kurt Kroenke and colleagues, with an educational isma from [employer]. Thrive Questionnaire Date Thrive assessed: 07/24/25 AUDIT C Alcohol Use Questionnaire (AUDIT-C) 1. How often do you have a drink containing alcohol?: Never Total Score: 0 Score Reviewed/Action Taken: No JOSE RAFAEL-7 AMB Questionnaire JOSE RAFAEL-7 Date JOSE RAFAEL - 7 assessed: 07/24/25 Feeling nervous, anxious, or on edge: 0 = Not at all Not being able to stop or control worryin = Not at all Worrying too much about different things: 0 = Not at all Trouble relaxin = Not at all Being so restless that it is hard to sit still: 0 = Not at all Becoming easily annoyed or irritable: 0 = Not at all Feeling afraid as if something awful might happen: 0 = Not at all Total JOSE RAFAEL-7 score (0-4 normal; 5-9 mild; 10-14 moderate; 15-21 severe): 0 Source: Developed by Drs. Bonifacio Dorsey, Farshad Durand and colleagues, with an educational isma from [employer]. JOSE RAFAEL-7 Assessment Billing JOSE RAFAEL-7 Assessment Tool: JOSE RAFAEL-7 Assessment 70982 Review of Systems Const All systems reviewed & are unremarkable except as noted in HPI and below Card Denies chest pain at rest, Denies chest pain with activity, Denies edema, Denies irregular heart rhythm, Denies claudication, Denies dyspnea, Denies dyspnea on exertion, Denies orthopnea, Denies paroxysmal nocturnal dyspnea and Denies slow heart rate Resp Denies cough, Denies dyspnea and Denies dyspnea on exertion GI Denies abdominal pain, Denies change in bowel habits, Denies excessive flatus, Denies nausea and Denies vomiting Denies urinary incontinence, Denies urinary hesitancy and Denies urinary urgency Physical exam (Primary Care) Vital Signs: Last Vital Signs Temp 97.3 F 07/24/25 13:19 Pulse 58 07/24/25 13:19 BP 100/60 07/24/25 13:19 Pulse Ox 98 07/24/25 13:19 Oxygen Delivery Method Room Air 07/24/25 13:19 BMI result Body Mass Index 31.6 BMI Assessment/Plan discussion: High BMI High, discussed plan: lifestyle, weight reduction, dietary and physical activity Tobacco/Smoking Status: Tobacco use Status Tobacco use date assessed 07/24/25 07/24/25 13:21 Patient Tobacco Use Status Never used Tobacco 07/24/25 13:21 e-Cigarette/Vaping Use Never Used 07/24/25 13:21 PHQ-9: PHQ-9 Score PHQ-9: Total score 0 07/24/25 14:05 Depression Screening Interpretation: Negative Thrive Assessment: Date of Thrive Assessment Date Thrive assessed 07/24/25 07/24/25 13:21 HENMT Head: Yes normal to inspection, Yes normocephalic and Yes atraumatic Ears: external ears normal Eyes General: appearance normal, both eyes and all related structures Eyelids: Yes eyelids normal Conjunctivae: conjunctivae normal Neck Neck: Yes normal visual inspection and Yes supple Resp Effort & Inspection: normal respiratory effort Auscultation: clear to auscultation bilaterally Cardio Jugular venous distension: no JVD Rate: regular rate Rhythm: regular rhythm Heart sounds: S1 normal heart sound present and S2 normal heart sound present GI Inspection: Yes normal to inspection Palpation (GI): Soft to palpation and nontender Auscultation: normal bowel sounds Skin General skin exam: no rashes or lesions noted Neuro General: no focal motor deficits Extrem General: Yes full ROM Psych Appearance: grossly normal Coding Level of Care Code Est Pt Prev Care 40-64y(95507) Diagnoses Physical exam Z00.00 Additional Codes JOSE RAFAEL-7 Assessment Billing - JOSE RAFAEL-7 Assessment Tool: JOSE RAFAEL-7 Assessment 81932 ([id number]) PHQ-9 - 75048 - PHQ-9 Billing: Yes ([id number]) Time Spent (min) 30 Assessment & Plan Assessment & Plan (1) Physical exam: Code(s): Z00.00 - Encounter for general adult medical examination without abnormal findings Category: Medical Plan Plan 1. Annual Physical Examination The patient presents for a routine annual physical. Discussion included preventative screenings. The patient is due for a mammogram and colonoscopy and will be provided with referrals. The influenza vaccine will be administered during today's visit. The patient's blood pressure is well-controlled and 10-year cardiovascular risk is low at 0.5%. Orders: Orders MM tomosynthesis screening BI Today Z12.31 - Encounter for screening mammogram for malignant neoplasm of breast Influenza 2276-2202 Immunization Today Z23 - Encounter for immunization Referrals Open Access Screening Colonoscopy Referral Z12.12 - Encounter for screening for malignant neoplasm of rectum Medications: New Fluarix [id number] (PF) (flu vac ts (6mos up)-PF) 0.5 mL IM ONCE 0.5 mL 0RF NS Z23 - Encounter for immunization
[2025-07-24 13:19] VITALS: BP 100/60; PULSE 58; TEMP 36.3; O2SAT 98; BMI 31.6
--- OUTSIDE RECORDS SUMMARY | 2025-07-24 17:20 | XMS_ITS | Clinical Summary ---
Author Organization [facility] Address [address] [place] [address] Care Team Providers Care Foot Setter Name Role Phone Unavailable Primary Care Provider [...] Description 07/18/2025 8:45 AM EST Office Visit [facility] [address] [place] [address] Janie King Periodontal disease (Primary Dx); Dental [...] Description 01/16/2026 8:45 AM EDT Office Visit [facility] [address] [place] [address] Janie King Health Maintenance Due Date Last [...] mRNA E6/E7 rflx Not Detected Not Detected [facility] Comment: Methodology: Inking Machine Tender-Mediated Amplification This assay detects E6/E7 viral messenger RNA (mRNA) from 14 high-risk HPV types (16,18,31,33,35,39,45,51,52,56,58,59,66,68). The analytical performance characteristics of this assay have been determined by [employer]. The modifications have not been cleared or approved by the FDA. This assay has been validated pursuant to the CLIA regulations and is used for clinical purposes. For additional information, please refer to http://education.theDrop/faq/GUL396e3 (This link if provided for information/ educational purposes only.) THIS TEST WAS PERFORMED AT: [facility] [address] [place] [address] [address] [address] MURRAY GREY MD 02/26/2021 9:56 AM EDT Radha Connelly HISTORICAL/NON ORDERABLE LABS Fi nal Result [facility] [address] * Mammography Report 1 (07/21/2020 8:38 [...] Most Recently Relevant to Health Maintenance Insurance [facility] MEDICAID STAND ADULT
--- OUTSIDE RECORDS SUMMARY | 2025-07-24 17:20 | XMS_ITS | Clinical Summary ---
Author Organization [email or web address] [facility] ity Address [address] [place] [address] Care Team Providers Care Records Technician Name Role Phone Unavailable Primary Care Provider [...]
== END 2025-07-24 15:30 | disposition home or self-care (01) ==
LOC: HO.HMCH 12:57
PROVIDERS: PCP Internal Medicine; Visit Provider Internal Medicine
DX: Z23 Encounter for immunization (principal); Z00.00 Encounter for general adult medical examination without abnormal findings

== ENCOUNTER → 2025-07-24 12:56 | Outpatient (BNVA) | payer OTHER, SELFPAY | PROVIDERS: PCP Internal Medicine; Visit Provider Internal Medicine | DX: Z00.00 Encounter for general adult medical examination without abnormal findings (principal); Z98.84 Bariatric surgery status; Z23 Encounter for immunization | CPT/HCPCS: 90471; 90656; 96127; 99396 ==